=== PATIENT | female | born 1975 | race Two or more races ===

== ENCOUNTER 2021-08-23 15:17 | Outpatient (REF) | payer MEDICAID, SELFPAY ==
--- NOTE | ~2021-08-23 | MM_ITS ---
EXAMINATION: MM SCREENING DIGITAL BREAST TOMOSYNTHESIS, BILATERAL CLINICAL INFORMATION: Screening. Asymptomatic. The lifetime risk of breast cancer based on the Tyrer-Cuzick Model is 13%. COMPARISON: Mammography: 08/21/2020, 09/08/2018, 03/10/2018, 08/26/2017, 08/14/2017 TECHNIQUE: Digital breast tomosynthesis is performed in both the craniocaudal and mediolateral oblique views along with computer-aided detection (CAD). Synthesized 2D images are generated from the tomosynthesis. FINDINGS: The breasts are heterogeneously dense, which may obscure small masses (ACR BI-RADS breast composition Category c). There are no significant masses, abnormal calcifications, or other abnormalities. Parenchymal pattern is similar to prior studies. No developing density. The axilla and skin contours are unremarkable. MM/MM tomosynthesis screening BI IMPRESSION: No mammographic evidence of malignancy. ASSESSMENT: BI-RADS 1: Negative RECOMMENDATION: Routine annual mammography screening. This patient's information was entered into a reminder system with a target due date for their next mammogram.
== END 2021-08-23 15:18 | disposition home or self-care (01) ==
LOC: HO.MAMMO 15:17
PROVIDERS: PCP Nurse Practitioner Primary Care; Visit Provider Nurse Practitioner Primary Care
DX: Z12.31 Encounter for screening mammogram for malignant neoplasm of breast (principal)
CPT/HCPCS: 77063; 77067

== ENCOUNTER 2021-12-31 13:29 | Outpatient (REF) | payer MEDICAID, SELFPAY ==
[2022-01-01 08:51] LABS: BV Int Neg Control Negative (Negative); BV Int Pos Control Positive (Positive)
[2022-01-01 09:06] LABS: CT PCR NOT DETECTED (Not Detect.); NG PCR NOT DETECTED (Not Detect.)
[2022-01-02 19:56] LABS: HPV mRNA E6/E7 rflx Not Detected (Not Detected)
== END 2021-12-31 13:30 | disposition home or self-care (01) ==
LOC: HO.LAB 13:29
PROVIDERS: Visit Provider Advanced Practice Midwife
DX: Z01.419 Encounter for gynecological examination (general) (routine) without abnormal findings (principal); N89.8 Other specified noninflammatory disorders of vagina; N94.89 Other specified conditions associated with female genital organs and menstrual cycle; Z20.2 Contact with and (suspected) exposure to infections with a predominantly sexual mode of transmission
CPT/HCPCS: 87480; 87491; 87510; 87591; 87624; 87660; 88142

== ENCOUNTER 2022-01-24 14:57 | Outpatient (REF) | payer MEDICAID, SELFPAY ==
--- NOTE | ~2022-01-24 | US_ITS ---
EXAMINATION: US PELVIS CLINICAL INFORMATION: Fullness on right side COMPARISON: Previous exam May 2016 TECHNIQUE: Ultrasound of the pelvis is performed using both transabdominal and transvaginal transducers along with Doppler. Transvaginal imaging is performed due to inadequate visualization transabdominally. FINDINGS: The uterus is anteverted and measures 7.2 x 3.6 x 5 cm in dimension. No focal uterine lesion is seen. Endometrial thickness is normal measuring 1.2 cm. There are nabothian cysts in the cervix. The ovaries are normal-appearing. The right ovary measures 2.6 x 1 x 1.3 cm. The left ovary measures 2.1 x 0.7 x 1.2 cm. There are prominent left adnexal vessels. There is a small amount of fluid in the pelvis. US/US pelvic and transvaginal IMPRESSION: Prominent left adnexal vessels otherwise unremarkable exam.
== END 2022-01-24 14:58 | disposition home or self-care (01) ==
LOC: HO.US 14:57
PROVIDERS: Visit Provider Advanced Practice Midwife
DX: N94.89 Other specified conditions associated with female genital organs and menstrual cycle (principal)
CPT/HCPCS: 76830; 76856

== ENCOUNTER → 2022-02-05 12:07 | Outpatient (BNVA) | payer MEDICAID, SELFPAY | PROVIDERS: Visit Provider Advanced Practice Midwife | DX: Z13.89 Encounter for screening for other disorder (principal) ==

== ENCOUNTER 2022-02-25 11:25 | Outpatient (REF) | payer MEDICAID, SELFPAY ==
[2022-02-26 09:00] LABS: CT PCR NOT DETECTED (Not Detect.); NG PCR NOT DETECTED (Not Detect.)
[2022-02-26 09:47] LABS: BV Int Neg Control Negative (Negative); BV Int Pos Control Positive (Positive)
== END 2022-02-25 11:26 | disposition home or self-care (01) ==
LOC: HO.LAB 11:25
PROVIDERS: Visit Provider Advanced Practice Midwife
DX: Z01.419 Encounter for gynecological examination (general) (routine) without abnormal findings (principal); Z20.2 Contact with and (suspected) exposure to infections with a predominantly sexual mode of transmission; N89.8 Other specified noninflammatory disorders of vagina
CPT/HCPCS: 87480; 87491; 87510; 87591; 87660; 99212

== ENCOUNTER 2022-03-14 15:59 | Outpatient (REF) | payer MEDICAID, SELFPAY ==
[2022-03-14 17:02] LABS: Syphilis Screen Nonreactive (Nonreactive)
[2022-03-17 04:43] LABS: HBsAGNum1 0.85 S/CO (0.00-0.99); HIV Num 1 5.51 S/CO (0.00-0.99); Hepatitis B Surface Antigen Negative (Negative); ~HepC Num1 0.12 S/CO (0.00-0.79); ~Hepatitis C Antibody Nonreactive (Nonreactive)
[2022-03-17 05:39] LABS: HIV AB/AG Nonreactive (Nonreactive); HIV Num 2 0.07 S/CO; HIV Num 3 0.08 S/CO
== END 2022-03-14 16:00 | disposition home or self-care (01) ==
LOC: HO.LAB 15:59
PROVIDERS: Visit Provider Advanced Practice Midwife
DX: Z01.84 Encounter for antibody response examination (principal); Z11.4 Encounter for screening for human immunodeficiency virus [HIV]; N89.8 Other specified noninflammatory disorders of vagina; Z20.2 Contact with and (suspected) exposure to infections with a predominantly sexual mode of transmission
CPT/HCPCS: 36415; 86780; 86803; 87340; 87389

== ENCOUNTER 2022-12-09 13:59 | Outpatient (REF) | payer MEDICAID, SELFPAY ==
--- NOTE | ~2022-12-09 | MM_ITS ---
EXAMINATION: MM SCREENING DIGITAL BREAST TOMOSYNTHESIS, BILATERAL CLINICAL INFORMATION: Screening. Asymptomatic. The lifetime risk of breast cancer based on the Tyrer-Cuzick Model is 11%. COMPARISON: Mammography: 08/23/2021, 08/21/2020, 09/08/2018, 03/10/2018; bilateral breast MRI 01/07/2019 TECHNIQUE: Digital breast tomosynthesis is performed in both the craniocaudal and mediolateral oblique views along with computer-aided detection (CAD). Synthesized 2D images are generated from the tomosynthesis. FINDINGS: The breasts are heterogeneously dense, which may obscure small masses (ACR BI-RADS breast composition Category c). Breast tissue composition borders on extremely dense. The parenchymal pattern is similar to prior studies. Scattered asymmetries are stable. There is no developing density or architectural abnormality or significant mass. No abnormal calcifications. The axilla and skin contours are unremarkable. MM/MM tomosynthesis screening BI IMPRESSION: No mammographic evidence of malignancy. ASSESSMENT: BI-RADS 2: Benign RECOMMENDATION: Routine annual mammography screening. This patient's information was entered into a reminder system with a target due date for their next mammogram.
== END 2022-12-09 14:00 | disposition home or self-care (01) ==
LOC: HO.MAMMO 13:59
PROVIDERS: PCP Registered Nurse; Visit Provider Advanced Practice Midwife
DX: Z12.31 Encounter for screening mammogram for malignant neoplasm of breast (principal)
CPT/HCPCS: 77063; 77067

== ENCOUNTER 2023-01-02 10:16 | Outpatient (REF) | payer MEDICAID, SELFPAY ==
--- NOTE | ~2023-01-02 | XR_ITS ---
EXAMINATION: XR LUMBOSACRAL SPINE CLINICAL INFORMATION: Right-sided low back pain COMPARISON: None TECHNIQUE: Three views of the lumbosacral spine. FINDINGS: 5 nonrib-bearing lumbar vertebral bodies are visualized. Normal alignment. Lumbar vertebral body heights are maintained. Mild narrowing at L5/S1 disc space height. Other disc spaces are maintained. Sacroiliac joints are symmetric. Calcifications within the pelvis are likely vascular in nature. XR/XR lumbar spine 2-3V IMPRESSION: Minimal degenerative changes of the lower lumbar spine.
== END 2023-01-02 10:17 | disposition home or self-care (01) ==
LOC: HO.XRAY 10:16
PROVIDERS: PCP Registered Nurse; Visit Provider Emergency Medicine
DX: M54.50 Low back pain, unspecified (principal)
CPT/HCPCS: 72100

== ENCOUNTER 2023-03-04 10:00 | Outpatient (RCR) | payer MEDICAID, SELFPAY | END 2023-04-14 15:44 | disposition home or self-care (01) | LOC: HO.PT 10:00 | PROVIDERS: PCP Registered Nurse; Visit Provider Emergency Medicine | DX: M54.50 Low back pain, unspecified (principal) | CPT/HCPCS: 97110; 97161; 97530 ==

== ENCOUNTER 2023-12-24 12:36 | Outpatient (AMB) | payer OTHER, SELFPAY ==
[2023-12-24 12:36] VITALS: BP 110/62; PULSE 62; TEMP 36.8; O2SAT 98; BMI 24.0
--- NOTE | 2023-12-24 12:36 | MHC.OFFWIV ---
Intake Vital Signs 12/24/23 12:36 Height 5 ft Weight 123 lb 2 oz BMI 24.0 BP 110/62 Blood Pressure Location Lt brachial Position Sitting Pulse 62 Pulse Source Pulse Oximeter Temp 98.2 F Temp Source Oral Pulse Oximetry (%) 98 Intake Visit Reasons: EST/rash on face(lobby) Intake Note: pt is here c/o rash on face, pt states it is itchy, 1x month Patient Tobacco Use Status: Never used Tobacco Allergies benadryl Allergy (Unknown, Uncoded 12/24/23 12:37) dizziness From BENADRYL Adverse Reaction (Intermediate, Uncoded 12/24/23 12:37) VERTIGO Benadryl Adverse Reaction (Unknown, Uncoded 12/24/23 12:37) dizziness Medication List - Last Reconciled 12/24/23 by Leora Christianson, RUBY clobetasol 0.05% 1 appl topical BID 1 week hydroxyzine HCl 25 mg PO BEDTIME Do you need a note to return to daycare/school/sports/work: No HPI HPI Comments History of Present Illness Details 48 y/o female patient presents to walk in clinic with c/o rash on face. Reports rash started back in June 2023. Pt had to travel to [place] in Jul, and returned yesterday. Reports that rash is getting worse, itchy and spreading. Denies rash anywhere else in the body. Noticed the rash after she used new cosmetic product on her face. She has been using OTC Hydrocortisone with no relief. Denies systemic symptoms. [facility] Surgical History History of bilateral tubal ligation Family History Mother Breast cancer Social History Alcohol intake: current Alcohol intake frequency: holidays/special occasions only Patient Tobacco Use Status: Never used Tobacco Gender identity: Female Female Reproductive History Menstrual Age of Menarche: 10 Review of Systems Const All systems reviewed & are unremarkable except as noted in HPI and below Physical Exam Vital Signs: Last Vital Signs Temp 98.2 F 12/24/23 12:36 Pulse 62 12/24/23 12:36 BP 110/62 12/24/23 12:36 Pulse Ox 98 12/24/23 12:36 BMI result Body Mass Index 24.0 Const General: no acute distress Orientation/consciousness: patient oriented x3 Skin General skin exam: dry skin, erythema and lichenification Rashes: rashes noted (Face, dry red patches ) Neuro General: patient oriented x3 Assessment & Plan Assessment & Plan (1) Contact dermatitis: Code(s): L25.9 - Unspecified contact dermatitis, unspecified cause Qualifiers: Contact dermatitis type: allergic Contact dermatitis trigger: cosmetics Qualified Code(s): L23.2 - Allergic contact dermatitis due to cosmetics Plan: - Cetaphil or Cerave wash and moisturizer - No make-ups for At-least 1 month - Topical steroid, use for 7 days on/off - Atarax for itching. Plan - Cetaphil or Cerave wash and moisturizer - No make-ups for At-least 1 month - Topical steroid, use for 7 days on/off - Atarax for itching. Medications: New clobetasol 0.05% APPLY A VERY THIN LAYER TO THE AFFECTED SKIN ON FACE TWICE A DAY FOR 7 DAYS. STOP THE MEDICATION FOR 1 WEEK. MAY REPEAT DOSE FOR ANOTHER 7 DAYS IN NEEDED. 1 appl topical BID 1 week 45 grams 0RF RASH ON FACE L23.2 - Allergic contact dermatitis due to cosmetics hydroxyzine HCl TAKE ONE TABLET AT BEDTIME PRN FOR ITCHING 25 mg PO BEDTIME 20 tabs 0RF ITCHING L23.2 - Allergic contact dermatitis due to cosmetics Coding Level of Care Code Est Pt Level 3 (45130) Diagnoses Allergic contact dermatitis due to cosmetics L23.2 Contact dermatitis type: allergic Contact dermatitis trigger: cosmetics Time Spent (min) 15
== END 2023-12-24 13:36 | disposition home or self-care (01) ==
PROVIDERS: PCP Nurse Practitioner Family; Visit Provider Nurse Practitioner Family
DX: L23.2 Allergic contact dermatitis due to cosmetics (principal)
CPT/HCPCS: 99213

== ENCOUNTER 2023-12-31 14:36 | Outpatient (REF) | payer OTHER, SELFPAY | END 2023-12-31 14:37 | disposition home or self-care (01) | LOC: HO.MAMMO 14:36 | PROVIDERS: Visit Provider Registered Nurse | DX: Z12.31 Encounter for screening mammogram for malignant neoplasm of breast (principal) | CPT/HCPCS: 77063; 77067 ==

== ENCOUNTER → 2023-12-31 15:00 | Outpatient (BNV) | payer OTHER, SELFPAY | PROVIDERS: Visit Provider Radiology Diagnostic Radiology | DX: Z12.31 Encounter for screening mammogram for malignant neoplasm of breast (principal) | CPT/HCPCS: 77063; 77067 ==

== ENCOUNTER 2024-02-01 13:08 | Outpatient (AMB) | payer OTHER, SELFPAY ==
--- NOTE | 2024-02-01 13:18 | MHC.OFFWIV ---
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 Pt states she finished the oitment prescribed to her last month and it helped but has come back. Patient Tobacco Use Status: Never used Tobacco Allergies benadryl Allergy (Unknown, Uncoded 02/01/24 13:21) dizziness From BENADRYL Adverse Reaction (Intermediate, Uncoded 02/01/24 13:21) VERTIGO Benadryl Adverse Reaction (Unknown, Uncoded 02/01/24 13:21) dizziness Do you need a note to return to daycare/school/sports/work: No HPI HPI Comments History of Present Illness Details Patient presents the walk-in today for sick visit Complaining of rash to the face that started June 2023. She was evaluated in the walk-in 1 month ago for this and started on clobetasol cream for 1 week Reports some improvement but ultimately the rash never fully cleared up Denies any do hair or facial products aside from the ones that she was given at her last visit She has been using Cetaphil lotion and cleanser as directed by the provider at her last visit She has been avoiding all make up to the face Denies itching or pain Rash is limited to her face, does not travel down the neck or into the scalp and is no where else on her body Denies any systemic symptoms PFSH Surgical History History of bilateral tubal ligation Family History Mother Breast cancer Social History Alcohol intake: current Alcohol intake frequency: holidays/special occasions only Patient Tobacco Use Status: Never used Tobacco Gender identity: Female Female Reproductive History Menstrual Age of Menarche: 10 Review of Systems Const All systems reviewed & are unremarkable except as noted in HPI and below Physical Exam Vital Signs: Last Vital Signs Temp 98.6 F 02/01/24 13:20 Pulse 73 02/01/24 13:20 BP 116/70 02/01/24 13:20 Pulse Ox 98 02/01/24 13:20 Oxygen Delivery Method Room Air 02/01/24 13:20 BMI result Body Mass Index 23.6 General: awake, alert, oriented. Answers questions appropriately. Fully engaged in examination. Skin: warm, dry, intact. Facial redness. Small red solid bumps noted to cheeks, chin and forehead. No signs of infection. HEENT: Normocephalic. Hearing intact. Cardiac: External chest normal in appearance. Respiratory: No cough, audible wheezing or stridor. Abdomen: without gross distension. MS: No obvious swelling or deformities. Neurological: Oriented to person, place, time and situation. Thought process intact. No gait abnormalities appreciated. Psychiatric: Appropriate mood and affect. Good judgment and insight. Assessment & Plan Assessment & Plan (1) Rosacea: Code(s): L71.9 - Rosacea, unspecified Plan Metronidazole 1% topical apply once daily Follow-up with dermatology, dermatology list provided the patient Continue with Cetaphil wash and cleanser All questions and concerns were answered, patient agrees to the plan Follow-up with primary care doctor or return to walk-in for any new or worsening symptoms Medications: New metronidazole 1% 1 appl topical DAILY 30 days 60 grams 0RF Coding Level of Care Code Est Pt Level 3 (92007) Diagnoses Rosacea L71.9
[2024-02-01 13:20] VITALS: BP 116/70; PULSE 73; TEMP 37; O2SAT 98; BMI 23.6
== END 2024-02-01 15:20 | disposition home or self-care (01) ==
PROVIDERS: Visit Provider Registered Nurse Emergency
DX: L71.9 Rosacea, unspecified (principal)
CPT/HCPCS: 99213

== ENCOUNTER 2024-02-03 13:25 | Outpatient (AMB) | payer OTHER, SELFPAY ==
--- NOTE | 2024-02-03 13:28 | AM.OFFWIN_ITS ---
Intake Vital Signs 02/03/24 13:30 Weight 120 lb BP 112/78 Blood Pressure Location Lt brachial Position Sitting Pulse 75 Pulse Source Pulse Oximeter Pulse Oximetry (%) 98 Oxygen Delivery Method Room Air Intake Visit Reasons: EP RT side lower back pain Intake Note: Patient here for lower right back pain that has been on and off for the past 2 weeks but since a few days ago it has been constant. Patient Tobacco Use Status: Never used Tobacco Allergies benadryl Allergy (Unknown, Uncoded 02/03/24 13:31) dizziness From BENADRYL Adverse Reaction (Intermediate, Uncoded 02/03/24 13:31) VERTIGO Benadryl Adverse Reaction (Unknown, Uncoded 02/03/24 13:31) dizziness Do you need a note to return to daycare/school/sports/work: No HPI HPI Comments History of Present Illness Details 48 y/o female patient who presents to [facility] in clinic with c/o right sided lower back pain x 2 weeks. Reports some urinary symptoms - urine cloudy with foul odor. Denies vaginal symptoms. Denies any injury or trauma. [facility] Surgical History History of bilateral tubal ligation Family History Mother Breast cancer Social History Alcohol intake: current Alcohol intake frequency: holidays/special occasions only Patient Tobacco Use Status: Never used Tobacco Gender identity: Female Female Reproductive History Menstrual Age of Menarche: 10 Review of Systems Const All systems reviewed & are unremarkable except as noted in HPI and below Physical Exam Vital Signs: Last Vital Signs Pulse 75 02/03/24 13:30 BP 112/78 02/03/24 13:30 Pulse Ox 98 02/03/24 13:30 Oxygen Delivery Method Room Air 02/03/24 13:30 Const General: comfortable and no acute distress Nutritional Appearance: well nourished Orientation/consciousness: patient oriented x3 General: Yes CVA tenderness (right CVA tenderness) Back/Spine/Pelvis Back: CVA tenderness (right CVA tenderness), No mass, No erythema, No ecchymosis and back tenderness Cervical Spine: normal cervical lordosis and cervical ROM normal Thoracic/Lumbar Spine: thoracic and lumbar spine normal to inspection and thoraco-lumbar ROM normal Neuro General: patient oriented x3, gait normal and moves all extremities Psych Speech and movement: Normal speech and movement present Results AMB Urinalysis, Automated UA Leukoctes 0 Raman/uL Last Edit by Ankur Rendon [facility] on 02/03/24 13:56 UA Nitrite Negative Last Edit by Ankur Rendon [facility] on 02/03/24 13:56 UA Urobilinogen 0.2 mg/dL Last Edit by Ankur Rendon [facility] on 02/03/24 13:56 UA Protein 0 mg/dL Last Edit by Ankur Rendon [facility] on 02/03/24 13:56 UA pH 6.5 Last Edit by Ankur Rendon [facility] on 02/03/24 13:56 UA Blood 0 Luis Eduardo/uL Last Edit by Ankur Rendon [facility] on 02/03/24 13:56 UA Specific [place] 1.005 Last Edit by Ankur Rendon [facility] on 02/03/24 13:56 UA Ketone Negative Last Edit by Ankur Rendon [facility] on 02/03/24 13:56 UA Bilirubin 0 mg/dL Last Edit by Ankur Rendon [facility] on 02/03/24 13:56 UA Glucose 0 mg/dL Last Edit by NayanaАндрей Rendon [facility] on 02/03/24 13:56 Results Reviewed Results Reviewed: Laboratory Last Values Urine pH (Auto) 6.5 02/03/24 13:53 Specific [place] (Auto) 1.005 02/03/24 13:53 Urine Protein (Auto) 0 mg/dL 02/03/24 13:53 Glucose (UA)(Auto) 0 mg/dL 02/03/24 13:53 Urine Ketones (Auto) Negative 02/03/24 13:53 Urine Blood (Auto) 0 Luis Eduardo/uL 02/03/24 13:53 Urine Nitrite (Auto) Negative 02/03/24 13:53 Urine Bilirubin (Auto) 0 mg/dL 02/03/24 13:53 Urine Urobilinogen (Auto) 0.2 mg/dL 02/03/24 13:53 Leukocyte Esterase (Auto) 0 Raman/uL 02/03/24 13:53 Assessment & Plan Assessment & Plan (1) Lower back pain: Code(s): M54.50 - Low back pain, unspecified Qualifiers: Back pain laterality: right Chronicity: acute Sciatica presence: without sciatica Qualified Code(s): M54.50 - Low back pain, unspecified Plan: - POCT U/A negative - Advised to f/u with PCP for Kidney U/S if indicated. - Naproxen for pain relief - ICE HOT Orders: Orders AMB Urinalysis Automated Today Z13.9 - Encounter for screening, unspecified Coding Level of Care Code Est Pt Level 3 (88112) Diagnoses Acute right-sided low back pain without sciatica M54.50 Back pain laterality: right Chronicity: acute Sciatica presence: without sciatica Time Spent (min) 15
[2024-02-03 13:30] VITALS: BP 112/78; PULSE 75; O2SAT 98
== END 2024-02-03 14:13 | disposition home or self-care (01) ==
PROVIDERS: Visit Provider Nurse Practitioner Family
DX: M54.50 Low back pain, unspecified (principal)
CPT/HCPCS: 81003; 99213

== ENCOUNTER 2024-12-02 09:26 | Outpatient (REF) | payer OTHER, SELFPAY ==
[2024-12-05 09:19] LABS: TS Negative Control Passed; TS Panel A 1; TS Panel B 0; TS Positive Control Passed; TSpotTB Negative (Negative)
== END 2024-12-02 09:27 | disposition home or self-care (01) ==
LOC: HO.HHCL 09:26
PROVIDERS: Visit Provider Internal Medicine
DX: Z01.84 Encounter for antibody response examination (principal); Z11.1 Encounter for screening for respiratory tuberculosis
CPT/HCPCS: 36415; 86481

== ENCOUNTER 2024-12-27 | Outpatient (REF) | payer MEDICAID, SELFPAY ==
--- OUTSIDE RECORDS SUMMARY | 2024-12-28 13:20 | XMS_ITS | Clinical Summary ---
Author Organization [employer] Address [address] [facility] 7t [place] [address] Care Team Providers Care Broadcast Transmitter Operator Name Role Phone Colton Suarez MD Primary [...] Description 12/27/2024 2:45 PM EST Procedure Visit [facility] MEDICINE [address] [place] [phone] Sheri Wolf CNM Cervical cancer screening (Primary Dx); Screening examination for venereal disease; Candidiasis of vulva and vagina; Urinary symptom or sign; Family history of breast cancer in mother 12/27/2024 Patient Outreach [facility] MED & PEDS [address] [place] [address] Colton Suarez MD Pre-visit Planning ([facility] unable to reach [facility] ) 12/27/2024 Travel 12/06/2024 Telephone [facility] MED & PEDS [address] [place] [address] Nadine Garrett MD No Show 12/02/2024 Telephone [facility] PEDIATRICS [address] [place] [address] Colton Suarez MD lab request 10/28/2024 9:45 AM EST Telemedicine [facility] MED & PEDS [address] [place] [address] Colton Suarez MD Encounter for medical examination to establish care (Primary Dx); Screening for colon cancer; Encounter for screening mammogram for malignant neoplasm of breast; Screening for cervical cancer 10/28/2024 Travel 10/19/2024 Telephone [facility] MEDICINE [address] [place] [address] Colton Suarez MD new patient visit from [...] Description 01/03/2025 9:30 AM EST Office Visit [facility] MED & PEDS [address] [place] [address] AbramsColton Alvarez MD [address] [place] [address] Health Maintenance Due Date Last Done Comments [...] PM EST Vulvovaginal candidiasis us Sheri Wolf [facility] POINT OF CARE TEST ENTER/ EDIT ORDERABLES Final Result * T-SPOT??.TB (12/02/2024 9:28 AM EST) T Spot TB Negative Negative [facility] Comment:A negative test resu lt does [...] as aquantitative test. TS PANEL A 1 [facility] TS PANEL B 0 [facility] Negative Control Passed [facility] Positive Control Passed [facility] Comment:For additional infor shaquille, please refer tohttp://education.First Solar.Readmill/faq/DBF400(This link is being provided for informational/educational purposes only.)THIS TEST WAS PERFORMED AT:[employer] [id number] [place] [address]RDUEHFLVALERIE ROBB MD,PHD 12/02/2024 9:28 AM EST 12/02/2024 11:34 AM EST us Colton Saravia MD LAB BLOOD ORDERABL ES Final Result [facility] [address] [place] [address] [phone] * BI Mammogram Screening Tomosynthesis Bilateral (12/31/2023 3:00 PM EST) Anatomical Region Laterality Modality Breast Bilateral Mammography 12/31/2023 3:00 PM EST Narrative 01/25/2024 2:25 PM EST ? [facility] [place] ? [address] ?[place] [address] ? Mammography Report ? Signed ? Patient: Tory Monreal ?MR#: [id number] ?? [id number] ? : 1975 ?Acct:[id number] ? Age/Sex: 48 / F ?ADM Date: 12/31/23 ? Loc: HO.MAMMO ? Attending Dr: Lexi Deon SAUSAGE INSPECTOR ? Ordering Physician: Deon,Lexi SAUSAGE INSPECTOR ?Results: 1Nega ?? tive ? Date of Service: 12/31/23 ?Follow Up: 1 Year From Orig ?? inal Mammogram ? Procedure(s): MM tomosynthesis screening BI ?? Accession Number(s): [id number] ? cc: Deon,Lexi SAUSAGE INSPECTOR ? EXAMINATION: ?? MM SCREENING DIGITAL BREAST [...] 1421 ? DD/ 1500 ? TD/TT: ? Electric Range Assembler: ? Procedure Note Sara Sapp - 01/25/2024 [facility] [address] [place], [place] [address] Mammography Report Signed Patient: Tory Monreal EMR#: [id number] : 1975Acct:[id number] Age/Sex: 48 / FADM Date: 12/31/23 Loc: BOBBY[facility] Attending Dr: Lexi Chavarria SAUSAGE INSPECTOR Ordering Physician: Lexi Chavarria FNPResults: 1Nega tive Date of Service: 12/31/23Follow Up: 1 Year From Orig inal Mammogram Procedure(s): MM tomosynthesis screening BI Accession Number(s): [id number] cc: Lexi Chavarria SAUSAGE INSPECTOR EXAMINATION: MM SCREENING DIGITAL BREAST TOMOSYNTHESIS, BILATERAL [...] in OV> 01/25/24 1421 DD/ 1500 TD/TT: Electric Range Assembler: [facility] SAUSAGE INSPECTOR IMG BI PROCEDURES Final Resul t from Last 3 Months or Most Recently Relevant to Health Maintenance Insurance * Guarantor: Tory Saravia Account Type Relation to Patient Date of Phone Billing Address Personal/Family Self [address] [place] [address] Care Teams Broadcast Transmitter Operator Relationship Specialty Start Date End Date Colton Suarez MD [address] [place] [phone] PCP - General Internal Medicine 11/01/24
--- OUTSIDE RECORDS SUMMARY | 2024-12-28 13:20 | XMS_ITS | Encounter Summary ---
Author Organization [employer] Address [address] [facility] 7t [place] [address] Care Team Providers Care Mule Developer Name Role Phone Colton Suarez MD Primary Care Prov ider Reason for Visit * Reason Comments Pre-visit Planning SDOH unable to reach LVM Encounter Details Date Type Department Care Team (Late st Contact Info) Description 12/27/2024 Patient Outreach [facility] MED & PEDS [address] [place], [place] [phone] Colton Suarez MD [address] [place] [address] Pre-visit Planning ([facility] unable to reach LVM ) Social History Tobacco Use Types Packs/Day Years [...] AM EDT documented as of this encounter Progress Notes * Catrina Eaton - 12/27/2024 3:31 PM EST FRANCISCO Richards placed outbound call to patient to complete pre-visit planning. No answer at this time. Patient name and were not confirmed. CC left voicemail requesting return call. Direct contactinformation provided. documented in this encounter Plan of Treatment Upcoming Encounters Date Type Department Care Team (Late st Contact Info) Description 01/03/2025 9:30 AM EST Office Visit [facility] MED & PEDS [address] [place] [address] Colton Suarez MD [address] [place] [address] documented as of this encounter Visit Diagnoses Not on filedocumented in this encounter Additional Health Concerns Assessment Noted Time PHQ-9 Depression Total Score: 5 10/28/20 9:50 AM EST documented as of this encounter Care Teams Mule Developer Relationship Specialty Start Date End Date Colton Suarez MD [address] [place] [address] PCP - General Internal Medicine 11/01/24 documented as of this encounter
--- OUTSIDE RECORDS SUMMARY | 2024-12-28 13:20 | XMS_ITS | Encounter Summary ---
Author Organization [employer] Address [address] [facility] [address] 7t [place] [address] Care Team Providers Care Methods Specialist Engineer Name Role Phone Colton Suarez MD Primary Care Prov ider Reason for Visit * Reason Onset Date Comments No Show 12/06/2024 Encounter Details Date Type Department Care Team ([facility] Contact Info) Description 12/06/2024 Telephone C [facility] MED & PEDS [address] [place], [place] [phone] Nadine Garrett MD [address] [place], [place] [phone] No Show Social History Tobacco Use Types [...] Description 01/03/2025 9:30 AM EST Office Visit [facility]C MED & PEDS [address] [place] [address] Colton Suarez MD [address] [place] [address] documented as of this encounter Visit Diagnoses Not on filedocumented in this encounter Additional Health Concerns Assessment Noted Time PHQ-9 Depression Total Score: 5 10/28/20 9:50 AM EST documented as of this encounter Care Teams Methods Specialist Engineer Relationship Specialty Start Date End Date Colton Suarez MD [address] [place] [address] PCP - General Internal Medicine 11/01/24 documented as of this encounter
--- OUTSIDE RECORDS SUMMARY | 2024-12-28 13:20 | XMS_ITS | Encounter Summary ---
Author Organization [employer] Address [address] [facility] 7t [place] [address] Care Team Providers Care Postal Supervisor Name Role Phone Lexi Chavarria [facility] Primary Care Provider [phone] Colton Suarez MD Primary Care Prov ider Encounter Details Date Type Department Care Team ([facility] Contact Info) Description 06/23/[address] [facility] MEDICINE [address] [place], [place] [phone] Lexi Chavarria [facility] [address] [place], [place] [phone] Social History Tobacco Use Types Packs/Day Years [...] Description 01/03/2025 9:30 AM EST Office Visit [facility] CHC MED & PEDS [address] [place], [place] [phone] Colton uSarez MD [address] [place] [address] documented as of this encounter Visit Diagnoses Not on filedocumented in this encounter Additional Health Concerns Assessment Noted Time PHQ-9 Depression Total Score: 6 06/23/20 23 11:39 AM EDT documented as of this encounter Care Teams Postal Supervisor Relationship Specialty Start Date End Date Lexi Chavarria FNP [address] [place] [phone] PCP - General Family Medicine 08/19/21 11/17/23 oClton Suarez MD [address] [place] [address] PCP - General Internal Medicine 11/01/24 documented as of this encounter
--- OUTSIDE RECORDS SUMMARY | 2024-12-28 13:20 | XMS_ITS | Encounter Summary ---
Author Organization [employer] Address [address] [facility] [address] 7t [place] [address] Care Team Providers Care Filling Room Operator Name Role Phone Colton Suarez MD [...] Description 01/03/2025 9:30 AM EST Office Visit [facility] MED & PEDS [address] [place] [address] Colton Suarez MD [address] [place] [address] documented as of this encounter Visit Diagnoses Not on filedocumented in this encounter Additional Health Concerns Assessment Noted Time PHQ-9 Depression Total Score: 5 10/28/20 24 9:50 AM EST documented as of this encounter Care Teams Filling Room Operator Relationship Specialty Start Date End Date Colton Suarez MD [address] [place] [address] PCP - General Internal Medicine 11/01/24 documented as of this encounter
--- OUTSIDE RECORDS SUMMARY | 2024-12-28 13:20 | XMS_ITS | Encounter Summary ---
Author Organization [employer] Address [address] [facility] [address] 7t [place] [address] Care Team Providers Care Senior Mortgage Loan Processor Name Role Phone Colton Suarez MD Primary Care Prov ider Reason for Visit * Reason Comments Gynecologic Exam Encounter Details Date Type Department Care Team (Latest Contact Info) Description 12/27/2024 2:45 PM EST Procedure Visit [facility] MEDICINE [address] [place], [place] [phone] Sheri Wolf CNM [address] [place], [place] [phone] Cervical cancer screening (Primary Dx); Screening examination [...] in this encounter Progress Notes * Sheri Wolf CNM - 12/27/2024 2:45 PM EST Subjective [...] 9:30 AM EST Office Visit [facility] MED & PEDS [address] [place] [address] Colton Suarez MD 505 [place] [address] Scheduled Orders Name Type Priority Associated Diagnoses [...] documented as of this encounter Care Teams Senior Mortgage Loan Processor Relationship Specialty Start Date End Date Colton Suarez MD [address] [place] [phone] PCP - General Internal Medicine 11/01/24 documented as of this encounter
--- OUTSIDE RECORDS SUMMARY | 2024-12-28 13:20 | XMS_ITS | Encounter Summary ---
Author Organization [employer] Address [address] [facility] [address] 7t [place] [address] Care Team Providers Care Architect Internship Name Role Phone Colton Suarez MD Primary Care Prov ider Reason for Visit * Reason Onset Date Comments lab request 12/02/2024 Encounter Details Date Type Department Care Team (Late st Contact Info) Description 12/02/[address] [facility] PEDIATRICS [address] [place] [address] Colton Suarez MD [address] [place], [place] [phone] lab request Social History Tobacco Use Types [...] EST Pt came to after going to [facility] asking for TB order. Will route to [facility] nurses. documented in this encounter Plan of Treatment Upcoming Encounters Date Type Department Care Team (Late st Contact Info) Description 01/03/2025 9:30 AM EST Office Visit [facility] MED & PEDS [address] [place] [address] Colton Suarez MD [address] [place] [address] documented as of this encounter Procedures Procedure Name Priority Date/Time Associated Diagnosis Comments T-SPOT(R).TB Routine 12/02/2024 9:28 AM EST Encounter for immunization documented in this encounter Results * T-SPOT??.TB (12/02/2024 9:28 AM EST) T Spot TB Negative Negative [facility] Comment:A negative test resu lt [...] as aquantitative test. TS PANEL A 1 [facility] TS PANEL B 0 [facility] Negative Control Passed [facility] Positive Control Passed [facility] Comment:For additional infor mation, please refer tohttp://education.Borderfree/faq/SBZ902(This link is being provided for informational/educational purposes only.)THIS TEST WAS PERFORMED AT:[employer] [id number] [place] [address]JFDJLMIVALERIE ROBB MD,PHD 12/02/2024 9:28 AM EST 12/02/2024 11:34 AM EST us Colton Saravia MD LAB BLOOD ORDERABL ES Final Result [facility] [address] [place] [phone] documented in this encounter Visit Diagnoses Diagnosis Encounter for medical examination to establish care Encounter for immunization documented in this encounter Additional Health Concerns Assessment Noted Time PHQ-9 Depression Total Score: 5 10/28/20 9:50 AM EST documented as of this encounter Care Teams Architect Internship Relationship Specialty Start Date End Date Colton Suarez MD [address] [place] [phone] PCP - General Internal Medicine 11/01/24 documented as of this encounter
== END 2024-12-27 00:01 | disposition home or self-care (01) ==
LOC: HO.HHCLNP
PROVIDERS: Visit Provider Advanced Practice Midwife
DX: R39.9 Unspecified symptoms and signs involving the genitourinary system (principal)
CPT/HCPCS: 87086

== ENCOUNTER 2024-12-27 18:14 | Outpatient (REF) | payer MEDICAID, SELFPAY ==
--- OUTSIDE RECORDS SUMMARY | 2024-12-27 18:16 | XMS_ITS | Encounter Summary ---
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 Name Role Phone Lexi Chavarria [facility] Primary Care Provider [phone] Colton Suarez MD Primary Care Prov ider Encounter Details Date Type Department Care Team ([facility] Contact Info) Description 06/23/2023 Abstract [facility] MEDICINE [address] [place], [place] [phone] Lexi Chavarria [facility] [address] [place], [place] [phone] Social History Tobacco Use Types Packs/Day Years Used Date Smoking Tobacco: Never Smokeless Tobacco: Never Alcohol Use Standard Drinks/Week Comments Never 0 (1 standard drink = 0.6 oz pur e alcohol) Depression Answer Date Recorded Patient Health Questionnaire-9 Score 6 06/23/2023 Depression Answer Date Recorded Patient Health Questionnaire-2 Score 2 06/23/2023 Comments Unknown Sex and Gender Information Value Date Recorded Sex Assigned at Female 09/22/2022 10:20 AM EDT Legal Sex Female 10:20 AM EDT Gender Identity Female 09/22/2022 10:20 AM EDT Sexual Orientation Don't know 09/22/2022 10 :20 AM EDT COVID-19 Exposure Response Date Recorded In the last 10 days, have yo u been in contact with someone who was confirmed or suspected to have Coronavirus/COVID-19? No / Unsure 06/01/2023 3:23 PM EDT documented as of this encounter Plan of Treatment Upcoming Encounters Date Type Department Care Team (Late Contact Info) Description 01/03/2025 9:30 AM EST Office Visit [facility] [address] [place], [place] [phone] Colton Suarez MD [address] [place] [address] documented as of this encounter Visit Diagnoses Not on filedocumented in this encounter Additional Health Concerns Assessment Noted Time PHQ-9 Depression Total Score: 6 06/23/20 23 11:39 AM EDT documented as of this encounter Care Teams Lockstitch Waistband Setter Relationship Specialty Start Date End Date Lexi Chavarria FNP [address] [place] [id number] PCP - General Family Medicine 08/19/21 11/17/23 Colton Suarez MD [address] [place] [address] PCP - General Internal Medicine 11/01/24 documented as of this encounter
--- OUTSIDE RECORDS SUMMARY | 2024-12-27 18:16 | XMS_ITS | Encounter Summary ---
Author Organization [email or web address] Address [address] [place] [address] Care Team Providers Care Pararescue Manager Name Role Phone Colton Suarez MD Primary Care Prov ider Reason for Visit * Reason Onset Date Comments No Show 12/06/2024 Encounter Details Date Type Department Care Team ([facility] Contact Info) Description 12/06/2024 Telephone C [facility] [address], [place] [phone] Nadine Garrett MD [address] [place], [place] [phone] No Show Social History Tobacco Use Types Packs/Day Years Used Date Smoking Tobacco: Never Smokeless Tobacco: Never Alcohol Use Standard Drinks/Week Comments Never 0 (1 standard drink = 0.6 oz pur e alcohol) Depression Answer Date Recorded Patient Health Questionnaire-9 Score 5 10/28/2024 Patient Health Questionnaire-9 Score 5 10/28/2024 Last PHQ-9: Questionnaire Data Not on file 1 12/29/2023 Housing Stability Answer Date Recorded What is your housing situation today? I have fermin umanzor 09/28/[address] you li ve. Do you have problems with any of the following? None of the above 09/28/2023 Food Insecurity Answer Date Recorded Within the past 12 months, y ou worried that your food would run out before you got money to buy more: Never True 09/28/2023 Within the past 12 months,th e food you bought just didn't last and you didn't have enough money to get more: Never True 04/2023 Transportation Answer Date Recorded In the past 12 months, has l ack of transportation kept you from medical appts, meetings, work or from getting things needed for daily living? No 09/28/2023 Utilities Answer Date Recorded In the past 12 months, has t he electric, gas, oil or water company threatened to shut off services in your home? No 09/28/2023 Depression Answer Date Recorded Patient Health Questionnaire-2 Score 2 10/28/2024 Comments Unknown Sex and Gender Information Value Date Recorded Sex Assigned at Female 09/22/2022 10:20 AM EDT Legal Sex Female 10:20 AM EDT Gender Identity Female 09/22/2022 10:20 AM EDT Sexual Orientation Don't know 09/22/2022 10 :20 AM EDT documented as of this encounter Miscellaneous Notes * Telephone Encounter - [facility] - 12/06/2024 11:56 AM EST 12/06/24 no show for pap documented in this encounter Plan of Treatment Upcoming Encounters Date Type Department Care Team (Late st Contact Info) Description 01/03/2025 9:30 AM EST Office Visit [facility] [address] [place] [address] Colton Suarez MD [address] [place] [address] documented as of this encounter Visit Diagnoses Not on filedocumented in this encounter Additional Health Concerns Assessment Noted Time PHQ-9 Depression Total Score: 5 10/28/20 9:50 AM EST documented as of this encounter Care Teams Pararescue Manager Relationship Specialty Start Date End Date Colton Suarez MD [address] [place] [address] PCP - General Internal Medicine 11/01/24 documented as of this encounter
--- OUTSIDE RECORDS SUMMARY | 2024-12-27 18:16 | XMS_ITS | Clinical Summary ---
Author Organization [employer] Address [address] [facility] 7t [place] [address] Care Team Providers Care Chemical Process Analyst Name Role Phone Colton Suarez MD Primary Care Prov ider Allergies Active Allergy Reactions Criticality Noted Date Comments Diphenhydramine 03/16/2015 Medications acetaminophen (Tylenol) 500 MG tabletIndicatio ns:Right-sided low back pain without sciatica, unspecified chronicity Take 2 tablets (1,000 mg) by mouth every 6 (six) hours if needed for moderate pain or fever for up to 25 doses. 50 tablet 01/01/20 23 Active terconazole (Terazol 7) 0.4 % vaginal cream Insert 1 applicator into the vagina at bedtime for 7 days. 45 g 12/27/19 25 025 Active terconazole (Terazol 7) 0.4 % vaginal cream Insert 1 applicator into the vagina at bedtime for 7 days. 45 g 12/27/19 25 025 Discontinued Active Problems Problem Noted Date Diagnosed Date Family history of breast cancer in mother 2024 Overview (12/27/2024): Diagnosed in her 50s, unilateral. No recurrence as of 12/2024. Mammogram BIRADS 1 cat c 12/2023. Lifetime risk of breast cancer by Nilesh Perez 10.3% using 12/2023 mammogram. Encounter for medical examination to establish c are 10/28/2024 Assessment & Plan (10/28/2024 10:40 AM EST): Last pcp follow up was in August Er visit: 3 months ago due to back pain Hospitalization:- Pmhx- Pshx:- All- Meds: tizanidine 4mg, diclofenac 50mg Menarche 11yr LMP jul 2024 A1 Screening for colon cancer 10/28/2024 Assessment & Plan (10/28/2024 10:41 AM EST): Will refer for screening colon cancer Encounter for screening mamm ogram for malignant neoplasm of breast 10/28/2024 Assessment & Plan (10/28/2024 10:42 AM EST): Will refer for screening mammogram Screening for cervical cancer 10/28/2024 Assessment & Plan (10/28/2024 10:45 AM EST): Will refer with a female provider for pap smear Encounters Date Type Department Care Team Description 12/27/2024 2:45 PM EST Procedure Visit [facility] [address] [place] [phone] Sheri Wolf CNM Cervical cancer screening (Primary Dx); Screening examination for venereal disease; Candidiasis of vulva and vagina; Urinary symptom or sign; Family history of breast cancer in mother 12/27/2024 Patient Outreach [facility] [address] [place] [address] Colton Suarez MD Pre-visit Planning ([facility] unable to reach [facility] ) 12/27/2024 Travel 12/06/2024 Telephone [facility] [address] [place] [address] Nadine Garrett MD No Show 12/02/2024 Telephone [facility] [address] [place] [phone] Colton Suarez MD lab request 10/28/2024 9:45 AM EST Telemedicine [facility] [address] [place] [address] Colton Suarez MD Encounter for medical examination to establish care (Primary Dx); Screening for colon cancer; Encounter for screening mammogram for malignant neoplasm of breast; Screening for cervical cancer 10/28/2024 Travel 10/19/2024 Telephone [facility] [address] [place] [phone] Colton Suarez MD new patient visit from Last 3 Months Immunizations Name Administration Dates Next Due Hep B, Adolescent or Pediatric 07/15/2011,2009,09/10/2009 Influenza, IIV3, injectable 07/15/2011 Influenza, Split (incl. nini fied surface antigen) 08/26/2012 Tdap 08/26/2012 Family History Medical History Relation Name Comments No Known Problems Father Breast cancer Mother unilateral, di agnosed in her 50s. Still living, cancer free as of 12/2024 Diabetes Mother Hypertension Mother Diabetes Sister Thyroid cancer Sister Relation Name Status Comments Father Mother Sister Social History Tobacco Use Types Packs/Day Years Used Date Smoking Tobacco: Never Smokeless Tobacco: Never Tobacco Cessation:Counseling Given: Not Answered Alcohol Use Standard Drinks/Week Comments Never 0 [...] Patient Health Questionnaire-2 Score 2 10/28/2024 Comments No Sex and Gender Information Value Date Recorded Sex Assigned at Female 09/22/2022 10:20 AM EDT Legal Sex Female 10:20 AM EDT Gender Identity Female 09/22/2022 10:20 AM EDT Sexual Orientation Don't know 09/22/2022 10 :20 AM EDT Last Filed Vital Signs Vital Sign Reading Time Taken Comments Blood Pressure 112/62 12/27/2024 3:03 PM EST Pulse 67 12/27/2024 3:03 PM EST Temperature 36.3 ??C (97.3 ??F) 12/27/2024 3:03 PM ES T Respiratory Rate 16 12/27/2024 3:03 PM EST Oxygen Saturation 98% 12/27/2024 3:03 PM EST Inhaled Oxygen Concentration - - Weight 53.2 kg (117 lb 3.2 oz) 12/27/2024 3:03 P M EST Height 154.9 cm (5' 1 ) 12/27/2024 3:03 PM EST Body Mass Index 22.14 12/27/2024 3:03 PM EST Plan of Treatment Upcoming Encounters Date Type Department Care Team (Late st Contact Info) Description 01/03/2025 9:30 AM EST Office Visit [facility] [address] [place] [address] AbramsColton Alvarez MD [address] [place] [address] Health Maintenance Due Date Last Done Comments CT Colonography 1973 Colonoscopy 1973 Colorectal Cancer Screening 1973 FIT DNA/Cologuard 1973 FIT 1973 FOBT 1973 HIV Screening 1973 Sigmoidoscopy 1973 Alcohol/Substance Use Screening 1985 Family Planning (PISQ) 1988 Hepatitis C Screening 1991 Hepatitis B Vaccines (1 of 3 - 19+ 3-dose series) 1992 07/15/2011, 09/27/2010, 09/10/2009 Pap Smear 1994 Cervical Cancer Screening 2003 HPV/Cotest 2003 DTaP/Tdap/Td Vaccines (2 - Td or Tdap) 08/26/2022 08/26/2012 Pneumococcal Vaccine: 50+ Years (1 of 1 - PCV) 2023 Zoster Vaccines (1 of 2) 2023 SDOH Screening 06/23/2024 06/23/2023 COVID-19 Vaccine ( season) 2024 Influenza Vaccine (#1) 2024 08/26/2012, 2010 Depression Screening 10/28/2025 10/28/2024, 10/28/20 24 Tobacco Screening 12/27/2025 12/27/2024 Mammogram 12/31/2025 12/31/2023, 10/0 11/2020, 08/21/2020, Additional history exists RSV Patients and Patients Aged 60 years or older (1 - 1-dose 75+ series) 2048 HIB Vaccines Aged Out No longer eligi ble based on patient's age to complete this topic HPV Vaccines Aged Out No longer eligi ble based on patient's age to complete this topic Hepatitis A Vaccines Aged Out No long er eligible based on patient's age to complete this topic IPV Vaccines Aged Out No longer eligi ble based on patient's age to complete this topic Meningococcal Vaccine Aged Out No tita zaynab eligible based on patient's age to complete this topic RSV under 20 months Aged Out No longe r eligible based on patient's age to complete this topic Rotavirus Vaccines Aged Out No longer eligible based on patient's age to complete this topic Procedures Procedure Name Priority Date/Time Associated Diagnosis Comments POCT WET MOUNT/GURJIT Routine 12/27/2024 3: 38 PM EST Candidiasis of vulva and vagina T-SPOT(R).TB Routine 12/02/2024 9:28 AM EST Encounter for immunization BI MAMMOGRAM SCREENING TOMOSYNTHESIS BILATERAL Routine 12/31/2023 3:00 PM EST from Last 3 Months or Most Recently Relevant to Health Maintenance Results * POCT fern test, vaginal fluid manually resulted (12/27/2024 3:38 PM EST) GURJIT Prep Positive Comment:pH 4.5, neg whiff, n eg clue, neg trich, pos yeast, neg wbc Vaginal Fluid Vaginal structure / Unknown 12/27/2024 3:38 PM EST Impressions Sheri Wolf, CRISTEL - 12/27/2024 3:38 PM EST Vulvovaginal candidiasis us Sheri Wolf [facility] POINT OF CARE TEST ENTER/ EDIT ORDERABLES Final Result * T-SPOT??.TB (12/02/2024 9:28 AM EST) T Spot TB Negative Negative [facility] Comment:A negative test resu lt does not exclude the possibilityof exposure to or infection with Mycobacteriumtuberculosis (M. tuberculosis). Patients with recentexposure to TB infected individuals exhibiting anegative T-SPOT.TB result should be considered forretesting within 6 weeks or if other relevant clinicalsymptoms indicate. Results from T-SPOT.TB testing mustbe used in conjunction with each individual'sepidemiological history, current medical status,and results of other diagnostic evaluations.The T-SPOT.TB test is qualitative and results arereported as positive, borderline, or negative, giventhat the test controls perform as expected. In linewith the Centers for Disease Control and Prevention's2010 recommendation to report quantitative measurementsalongside the qualitative result, the laboratoryprovides spot counts for informational purposes only.The T-SPOT.TB test should not be interpreted as aquantitative test. TS PANEL A 1 [facility] TS PANEL B 0 [facility] Negative Control Passed [facility] Positive Control Passed [facility] Comment:For additional infor shaquille, please refer tohttp://education.[employer]soft [employer].Bubbleball/faq/OZO848(This link is being provided for informational/educational purposes only.)THIS TEST WAS PERFORMED AT:[employer] [id number] [place] [address]MGCIAUPVALERIE ROBB MD,PHD 12/02/2024 9:28 AM EST 12/02/2024 11:34 AM EST us Colton Saravia MD LAB BLOOD ORDERABL ES Final Result [facility] [address] [place] [address] [phone] * BI Mammogram Screening Tomosynthesis Bilateral (12/31/2023 3:00 PM EST) Anatomical Region Laterality Modality Breast Bilateral Mammography 12/31/2023 3:00 PM EST Narrative 01/25/2024 2:25 PM EST ? [facility] [place] ? [address] ?[place] [id number] ? Mammography Report ? Signed ? Patient: Tory Monreal ?MR#: M ?? [id number] ? : 1975 ?Acct:[id number] ? Age/Sex: 48 / F ?ADM Date: 12/31/23 ? Loc: HO.MAMMO ? Attending Dr: Lexi Deon SUPERVISOR ? Ordering Physician: Deon,Lexi SUPERVISOR ?Results: 1Nega ?? tive ? Date of Service: 12/31/23 ?Follow Up: 1 Year From Orig ?? inal Mammogram ? Procedure(s): MM tomosynthesis screening BI ?? Accession Number(s): [id number] ? cc: Deon,Lexi SUPERVISOR ? EXAMINATION: ?? MM SCREENING DIGITAL BREAST TOMOSYNTHESIS, BILATERAL ? CLINICAL INFORMATION: ? Screening. Asymptomatic. ? COMPARISON: ?? Mammography: This study is compared with prior exams dating back to ?? 2018. ? TECHNIQUE: ?? Digital breast tomosynthesis is performed in both the craniocaudal and ?? mediolateral oblique views along with computer-aided detection (CAD). ?? Synthesized 2D images are generated from the tomosynthesis. ? FINDINGS: ?? The breasts are heterogeneously dense, which may obscure small masses ?? (ACR BI-RADS breast composition Category c). ? There are no significant masses, abnormal calcifications, or other ?? abnormalities. ? MM/MM tomosynthesis screening BI ?? IMPRESSION: ?? No mammographic evidence of malignancy. ? ASSESSMENT: ? BI-RADS BI-RADS 1 - Negative ? RECOMMENDATION: ?? Routine annual mammography screening. ? 1 year F/U ? This examination should not preclude the clinical evaluation of a ?? suspicious palpable abnormality. ? This patient's information was entered into a reminder system with a ?? target due date for their next mammogram. ? Dictated By: ?Tess Tesfaye MD ? Signed By: ?<Electronically signed by Tess Tesfaye MD in OV> ? 01/25/24 1421 ? DD/ 1500 ? TD/TT: ? Supervisor [place]: ? Procedure Note Sara Sapp - 01/25/2024 [facility] [address] [place], [place] [address] Mammography Report Signed Patient: Tory Monreal EMR#: [id number] : 1975Acct:[id number] Age/Sex: 48 / FADM Date: 12/31/23 Loc: [facility] Attending Dr: Lexi Chavarria SUPERVISOR Ordering Physician: Lexi Chavarria FNPResults: 1Nega tive Date of Service: 12/31/23Follow Up: 1 Year From Orig inal Mammogram Procedure(s): MM tomosynthesis screening BI Accession Number(s): [id number] cc: Lexi Chavarria SUPERVISOR EXAMINATION: MM SCREENING DIGITAL BREAST TOMOSYNTHESIS, BILATERAL CLINICAL INFORMATION: Screening. Asymptomatic. COMPARISON: Mammography: This study is compared with prior exams dating back to 2018. TECHNIQUE: Digital breast tomosynthesis is performed in both the craniocaudal and mediolateral oblique views along with computer-aided detection (CAD). Synthesized 2D images are generated from the tomosynthesis. FINDINGS: The breasts are heterogeneously dense, which may obscure small masses (ACR BI-RADS breast composition Category c). There are no significant masses, abnormal calcifications, or other abnormalities. MM/MM tomosynthesis screening BI IMPRESSION: No mammographic evidence of malignancy. ASSESSMENT: BI-RADS BI-RADS 1 - Negative RECOMMENDATION: Routine annual mammography screening. 1 year F/U This examination should not preclude the clinical evaluation of a suspicious palpable abnormality. This patient's information was entered into a reminder system with a target due date for their next mammogram. Dictated By: Tess Tesfaye MD Signed By: <Electronically signed by Tess Tesfaye MD in OV> 01/25/24 1421 DD/ 1500 TD/TT: Supervisor [place]: [facility] SUPERVISOR IMG BI PROCEDURES Final Resul t from Last 3 Months or Most Recently Relevant to Health Maintenance Insurance * Guarantor: Tory Saravia Account Type Relation to Patient Date of Phone Billing Address Personal/Family Self [address] [place] [address] Care Teams Chemical Process Analyst Relationship Specialty Start Date End Date Colton Suarez MD [address] [place] [phone] PCP - General Internal Medicine 11/01/24
--- OUTSIDE RECORDS SUMMARY | 2024-12-27 18:16 | XMS_ITS | Encounter Summary ---
Author Organization [employer] Address [address] 7[address] [place] [address] Care Team Providers Care Interpretive Naturalist Name Role Phone Colton Suarez MD Primary Care Prov ider Reason for Visit * Reason Onset Date Comments lab request 12/02/2024 Encounter Details Date Type Department Care Team (Late st Contact Info) Description 12/02/2024 Telephone [facility] [address] [place] [address] Colton Suarez MD [address] [place], [place] [phone] lab request Social History Tobacco Use Types Packs/Day Years [...] as of this encounter Miscellaneous Notes * Addendum Note - Nay Zee RN - 12/02/2024 8:54 AM ESTAddended by: NAY ZEE on: 12/02/2024 08:54 AM Modules accepted: Orders * Telephone Encounter - Nay Zee RN - 12/02/2024 8:50 AM EST Order placed will notify pt. * Telephone Encounter - Nay Zee RN - 12/02/2024 8:40 AM EST Pt came to after going to [facility] asking for TB order. Will route to [facility] nurses. documented in this encounter Plan of Treatment Upcoming Encounters Date Type Department Care Team (Late st Contact Info) Description 01/03/2025 9:30 AM EST Office Visit [facility] [address] [place] [address] Colton Suarez MD [address] [place] [address] documented as of this encounter Procedures Procedure Name Priority Date/Time Associated Diagnosis Comments T-SPOT(R).TB Routine 12/02/2024 9:28 AM EST Encounter for immunization documented in this encounter Results * T-SPOT??.TB (12/02/2024 9:28 AM EST) T Spot TB Negative Negative [facility] Comment:A negative test resu lt does [...] as aquantitative test. TS PANEL A 1 [facility] TS PANEL B 0 [facility] Negative Control Passed [facility] Positive Control Passed [facility] Comment:For additional infor mation, please refer tohttp://education.Foremost/faq/KKL708(This link is being provided for informational/educational purposes only.)THIS TEST WAS PERFORMED AT:[employer] [id number] [place] [address]BIJGDHJVALERIE ROBB MD,PHD 12/02/2024 9:28 AM EST 12/02/2024 11:34 AM EST us Colton Saravia MD LAB BLOOD ORDERABL ES Final Result [facility] [address] [place] [phone] documented in this encounter Visit Diagnoses Diagnosis Encounter for medical examination to establish care Encounter for immunization documented in this encounter Additional Health Concerns Assessment Noted Time PHQ-9 Depression Total Score: 5 10/28/20 9:50 AM EST documented as of this encounter Care Teams Interpretive Naturalist Relationship Specialty Start Date End Date Colton Suarez MD [address] [place] [phone] PCP - General Internal Medicine 11/01/24 documented as of this encounter
--- OUTSIDE RECORDS SUMMARY | 2024-12-27 18:16 | XMS_ITS | Encounter Summary ---
Author Organization [employer] Address [address] [place] [address] Care Team Providers Care Machine Printer Hose Name Role Phone Colton Suarez MD Primary Care Prov ider Reason for Visit * Reason Comments Gynecologic Exam Encounter Details Date Type Department Care Team (Latest Contact Info) Description 12/27/2024 2:45 PM EST Procedure Visit [facility] [address] [place], [place] [phone] Sheri Wolf CNM [address] [place], [place] [phone] Cervical cancer screening (Primary Dx); Screening examination for venereal disease; Candidiasis of vulva and vagina; Urinary symptom or sign; Family history of breast cancer in mother Social History Tobacco Use Types Packs/Day Years [...] AM EDT documented as of this encounter Last Filed Vital Signs Vital Sign Reading [...] Mass Index 22.14 12/27/2024 3:03 PM EST documented in this encounter Progress Notes * Sheri oWlf CNM - 12/27/2024 2:45 PM EST Subjective Patient ID: Tory Saravia is a 49 y.o. female who presents for pap Last pap a few years ago, no prior abnormal. Skipped menses x 3 months, now monthly again. LMP 24x 6 days. 4 pads/day max. Notes some cramping, and itching with urination as well as vaginal irritation and discharge recently. She thinks she was treated for UTI and yeast last year. Last UTI on file here in 2022. Not sexually active in past few months, no current partner. Would like pap based STItesting today. Mammogram BIRADS 1, cat c 12/2023. Routine mammogram ordered 10/2024. Mother with unilateral breast cancer in her 50s, still living, no recurrence. No other family history of breast cancer. Review of Systems Genitourinary: Positive for pelvic pain and vaginal discharge. Negative for dyspareunia, dysuria, frequency, genital sores, hematuria, menstrual problem, urgency, vaginal bleeding and vaginal pain. No abnormal pap, no abnormal bleeding, no breast pain, no breast mass, no nipple discharge Objective BP 112/62 (BP Location: Left arm, Patient Position: Sitting, BP Cuff Size: Adult) Pulse 67 Temp97.3 ??F (36.3 ??C) (Temporal) Resp 16 Ht 5' 1 (1.549 m) Wt 117 lb 3.2 oz (53.2 kg) LMP 12/16/2024 (Approximate) SpO2 98% BMI 22.14 kg/m?? Physical Exam Constitutional: Appearance: Normal appearance. Chest: Breasts: Right: Normal. No swelling, bleeding, inverted nipple, mass, nipple discharge, skin change or tenderness. Left: Normal. No swelling, bleeding, inverted nipple, mass, nipple discharge, skin change or tenderness. Abdominal: General: A surgical scar is present. Tenderness: There is no right CVA tenderness or left CVA tenderness. Genitourinary: General: Normal vulva. Labia: Right: No rash, tenderness, lesion or injury. Left: No rash, tenderness, lesion or injury. Vagina: No signs of injury and foreign body. Vaginal discharge present. No erythema, tenderness, bleeding or lesions. Cervix: No cervical motion tenderness, discharge, friability, lesion, erythema, cervical bleeding or eversion. Uterus: Normal. Not enlarged and not tender. Adnexa: Right adnexa normal and left adnexa normal. Right: No mass, tenderness or fullness. Left: No mass, tenderness or fullness. Comments: Ovaries non palpable bilaterally. Good tone with Kegels, no prolapse with Valsalva. Lymphadenopathy: Upper Body: Right upper body: No supraclavicular or axillary adenopathy. Left upper body: No supraclavicular or axillary adenopathy. Neurological: Mental Status: She is alert. Psychiatric: Mood and Affect: Mood normal. Behavior: Behavior normal. Assessment/Plan Diagnoses and all orders for this visit: Cervical cancer screening - Pap Smear Cotest today. Will contact with results and plan. Cotest 5 years if normal. Yearly mammography. Urged to talk with mother to see if she had any genetics testing as part of treatment for breast cancer. If so, please let me know results. Report new family members with cancer diagnoses or changes in breast exam. Reviewed normal vs abnormal menstrual changes. Report prolonged, frequent or heavy bleeding, or bleeding after a year of no bleeding. Benign pelvic exam today. If urine culture/G/C/trichomonas neg and intermittent pain persists, willorder pelvic ultrasound. Screening examination for venereal disease - STI testing add on (NG, CT, Trich) Pap based STI testing sent. Will offer serum STI labs when we contact with results. Candidiasis of vulva and vagina - POCT fern test, vaginal fluid manually resulted For terconazole as prescribed. Avoid vaginal irritants. Report worsening or persistent symptoms. Urinary symptom or sign - Culture, Urine, Routine Reports frequent UTIs. Will send urine culture today and treat as indicated. Other orders - terconazole (Terazol 7) 0.4 % vaginal cream; Insert 1 applicator into the vagina at bedtime for 7days. documented in this encounter Plan of Treatment Upcoming Encounters Date Type Department Care Team (Late st Contact Info) Description 01/03/2025 9:30 AM EST Office Visit [facility] [address] [place] [address] Colton Suarez MD [address] [place] [address] Scheduled Orders Name Type Priority Associated Diagnoses Orde r Schedule Pap Smear Pathology and Cytology Routine Cervical cancer screening Ordered: 12/27/2024 STI testing add on (NG, CT, Trich) Pathology and Cytology Routine Screening examination for venereal disease Ordered: 12/27/2024 Culture, Urine, Routine Microbiology Routine Urinary symptom or sign Ordered: 12/27/2024 documented as of this encounter Procedures Procedure Name Priority Date/Time Associated Diagnosis Comments POCT WET MOUNT/GURJIT Routine 12/27/2024 3: 38 PM EST Candidiasis of vulva and vagina documented in this encounter Results * POCT fern test, vaginal fluid manually resulted (12/27/2024 3:38 PM EST) GURJIT Prep Positive Comment:pH 4.5, neg whiff, n eg clue, neg trich, pos yeast, neg wbc Vaginal Fluid Vaginal structure / Unknown 12/27/2024 3:38 PM EST Impressions Sheri Wolf CNM - 12/27/2024 3:38 PM EST Vulvovaginal candidiasis Sheri Wolf CNM POINT OF CARE TEST ENTER/ EDIT ORDERABLES Final Result documented in this encounter Visit Diagnoses Diagnosis Cervical cancer screening- Primary Screening for malignant neoplasm of the cervix Screening examination for venereal disease Candidiasis of vulva and vagina Urinary symptom or sign Family history of breast cancer in mother Family history of malignant neoplasm of breast documented in this encounter Additional Health Concerns Assessment Noted Time PHQ-9 Depression Total Score: 5 10/28/20 9:50 AM EST documented as of this encounter Care Teams Machine Printer Hose Relationship Specialty Start Date End Date Colton Suarez MD [address] [place] [phone] PCP - General Internal Medicine 11/01/24 documented as of this encounter
--- OUTSIDE RECORDS SUMMARY | 2024-12-27 18:16 | XMS_ITS | Encounter Summary ---
Author Organization [employer] Address [address] [facility] [address] [address] 7t [place] [address] Care Team Providers Care Valve Mechanic Name Role Phone Colton Suarez MD Primary Care Prov ider Encounter Details Date Type Department Care Team (Latest Contact Info) Description 12/27/2024 Travel Social History Tobacco Use Types Packs/Day Years [...] your housing situation today? I have fermin erna 09/28/[address] you li [...] AM EDT documented as of this encounter Plan of Treatment Upcoming Encounters Date Type Department Care Team (Late st Contact Info) Description 01/03/2025 9:30 AM EST Office Visit [facility] MED & PEDS [address] [place] [address] Colton Suarez MD [address] [place] [address] documented as of this encounter Visit Diagnoses Not on filedocumented in this encounter Additional Health Concerns Assessment Noted Time PHQ-9 Depression Total Score: 5 10/28/20 24 9:50 AM EST documented as of this encounter Care Teams Valve Mechanic Relationship Specialty Start Date End Date Colton Suarez MD [address] [place] [address] PCP - General Internal Medicine 11/01/24 documented as of this encounter
[2025-01-01 20:03] LABS: C. trachomatis RNA TMA Not Detected (Not Detected); N. gonorrhoeae RNA TMA Not Detected (Not Detected); Trichomonas (NAAT) Not Detected (Not Detected)
[2025-01-05 15:09] LABS: HPV Genotype 16 Negative (Negative); HPV Genotype 18 Negative (Negative); HPV High Risk Negative (Negative)
== END 2024-12-27 18:15 | disposition home or self-care (01) ==
LOC: HO.HHCLNP 18:14
PROVIDERS: Visit Provider Advanced Practice Midwife
DX: Z11.3 Encounter for screening for infections with a predominantly sexual mode of transmission (principal); Z12.4 Encounter for screening for malignant neoplasm of cervix
CPT/HCPCS: 87086; 87491; 87591; 87626; 87661; 88175

== ENCOUNTER 2025-01-12 14:25 | Outpatient (REF) | payer MEDICAID, SELFPAY ==
--- OUTSIDE RECORDS SUMMARY | 2025-01-12 15:42 | XMS_ITS | Encounter Summary ---
Author Organization [employer] Address [address] [facility] [address] 7t [place] [address] Care Team Providers Care Microphone Operator Name Role Phone Colton Suarez MD Primary Care Prov ider Reason for Visit * Reason Comments Gynecologic Exam Encounter Details Date Type Department Care Team (Latest Contact Info) Description 12/27/2024 2:45 PM EST Procedure Visit [facility] MEDICINE [address] [place], [place] [phone] Sheri Hayes CNM [address] [place], [place] [phone] Cervical cancer screening (Primary Dx); Screening examination [...] kg (117 lb 3.2 oz) 12/27/2024 3:03 PM EST Height 154.9 cm (5' 1 ) 12/27/2024 3:03 PM EST Body Mass Index 22.14 12/27/2024 3:03 PM EST documented in this encounter Progress Notes * Sheri Hayes CNM - 12/27/2024 2:45 PM EST Subjective [...] bedtime for 7days. documented in this encounter Miscellaneous Notes * Result Encounter Note - Sheri Hayes CNM - 12/27/2024 2:45 PM EST Please let Tory know her pap was normal, HPV neg, Gonorrhea/Chlamydia/trichomonas neg. Urine culture also negative. If she continues to have vaginal/urinary symptoms after finishing terconazole, she can come to [facility] or be scheduled for evaluation. We did pap based STI testing, but not blood work. Would she like that as well? If so, I will order. Thanks! documented in this encounter Plan of Treatment Not on file documented as of this encounter Procedures Procedure Name Priority Date/Time Associated Diagnosis Comments POCT WET MOUNT/GURJIT Routine 12/27/2024 3: 38 PM EST Candidiasis of vulva and vagina CULTURE, URINE, ROUTINE Routine 12/27/2024 3:23 PM EST Urinary symptom or sign CHLAMYDIA/N. GONORRHOEAE AND T. VAGINALIS RNA, QUAL,TMA Routine 12/27/2024 3:20 PM EST Screening examination for venereal disease PAP SMEAR Routine 12/27/2024 3:20 PM EST Cervical cancer screening documented in this encounter Results * POCT fern test, vaginal fluid manually resulted (12/27/2024 3:38 PM EST) GURJIT Prep Positive Comment:pH 4.5, neg whiff, n eg clue, neg trich, pos yeast, neg wbc Vaginal Fluid Vaginal structure / Unknown 12/27/2024 3:38 PM EST Impressions Sheri Hayes CNM - 12/27/2024 3:38 PM EST Vulvovaginal candidiasis Sheri Hayes CNM POINT OF CARE TEST ENTER/ EDIT ORDERABLES Final Result * Culture, Urine, Routine (12/27/2024 3:23 PM EST) Urine Urine specimen obtained by clean catch procedure / Unknown 12/27/2024 3:23 PM EST 12/28/2024 11:21 AM EST Comment:[facility] Narrative [facility] - 12/29/2024 11:32 AM EST Urine Culture No growth. Specimen Source: Urine clean catch Sheri Hayes CNM LAB MICROBIOLOGY - GENERA L ORDERABLES Final Result [facility] [address] [place] [phone] * STI testing add on (NG, CT, Trich) (12/27/2024 3:20 PM EST) Trichomonas (NAAT) Not Detected Not Detected [facility] Comment:Methodology: Transcr iption Mediated Amplification(TMA)The analytical performance characteristics of thisassay have been determined by [facility], [place], [place]. The modificationshave not been cleared or approved by the FDA. Thisassay has been validated pursuant to the CLIAregulations and is used for clinical purposes.For additional information, please refer tohttp://education.Ad Tech Media Sales/faq/Trichomonastma (This link is being providedfor information/educational purposes only).THIS TEST WAS PERFORMED AT:[employer] [id number] [place] [address]ENHFQBQVALERIE ROBB MD,PHD CTNG Ref Lab Not Detected Not Detected [facility] NG Ref Lab Not Detected Not Detected [facility] Comment:Methodology: Transcr iption Mediated Amplification(TMA) to detect RNA.The analytical performance characteristics of thisassay, when used to test SurePath specimens havebeen determined by [employer]. The modificationshave not been cleared or approved by the FDA.This assay has been validated pursuant to the CLIAregulations and is used for clinical purposes.For additional information, please refer tohttps://education.[employer]/faq/QQL627(This link is being provided for information/educational purposes only).THIS TEST WAS PERFORMED AT:[employer] [id number] [place] [address]RYMRZJQVALERIE ROBB MD,PHD ThinPrep?? vial Cervix uteri structure / Unknown 12/27/2024 3:20 PM EST 12/28/2024 9:15 AM EST Narrative [facility] - 01/01/2025 8:03 PM EST Collection Date: [id number] by: GRISEL Pacheco: Cervix us Sheri PAL LAB CYTOLOGY ORDERABLES F inal Result [facility] [address] [place] [phone] * Pap Smear (12/27/2024 3:20 PM EST) Swab Cervix uteri structure / Unknown 12/27/2024 3:20 PM EST 12/28/2024 9:15 AM EST [facility] - 01/05/2025 10:00 AM EST ----- ------- Name: Tory Monreal ?Age/Sex: 49/F ? : 1975 Unit#: [id number] ?? Attend Dr: SHERI HAYES CNM ?Re12/27/24 ?Status: DEP REF ? Location: HO.HHCLNP ? Disch: ? ----- ------- SPEC : [id number] ? RECD: 12/28/24-914 ? STATUS: ??SOUT ? REQ NUM: [id number] ? SABINE: 12/27/24-1519 ? SUBM DR: SHERI HAYES CNM ? ENTERED: ??12/28/24-954 ?SP TYPE: Pap Smr ?OTHR PICKETT: ? ORDERED: ??Pap Smear ? Interpretation ?? Satisfactory for evaluation. ?? Negative for intraepithelial lesion or malignancy. ?? No endocervical cells seen. ?? Moderate inflammation. ? HPV High Risk: ??Negative ? HPV Genotyping 16: ??Negative ?? HPV Genotyping 18: ??Negative ?Clinical Information LMP: Unknown date Previous PAP test: Unknown date/findings ? Material Received ?? ThinPrep-Cervical ----- ------- Signed (signature on file) VICENTE Lopez (ASCP) 01/05/25 1000 ? ----- ------- ? END OF REPORT ? us Sheri Hayes CNM LAB CYTOLOGY ORDERABLES F inal Result [facility] [address] [place] [address] [phone] documented in this encounter Visit Diagnoses [...] documented as of this encounter Care Teams Microphone Operator Relationship Specialty Start Date End Date Colton Suarez MD [address] [place] [phone] PCP - General Internal Medicine 11/01/24 documented as of this encounter
--- OUTSIDE RECORDS SUMMARY | 2025-01-12 15:42 | XMS_ITS | Encounter Summary ---
Author Organization [facility] [facility] Address 75 [facility] 7t [place] [address] Care Team Providers Care Continuous Improvement Black Belt Name Role Phone Colton Suarez MD Primary [...] as of this encounter Plan of Treatment Not on file documented as of this encounter Visit Diagnoses Not on filedocumented in this encounter Additional Health Concerns Assessment Noted Time PHQ-9 Depression Total Score: 5 10/28/20 9:50 AM EST documented as of this encounter Care Teams Continuous Improvement Black Belt Relationship Specialty Start Date End Date Colton Suarez MD [address] [place] [phone] PCP - General Internal Medicine 11/01/24 documented as of this encounter
--- OUTSIDE RECORDS SUMMARY | 2025-01-12 15:42 | XMS_ITS | Encounter Summary ---
Author Organization [employer] Address [address] [place] [address] Care Team Providers Care Shook Machine Operator Name Role Phone Colton Suarez MD Primary Care Prov ider Reason for Visit * Reason Onset Date Comments Results 01/05/2025 Encounter Details Date Type Department Care Team ([facility] Contact Info) Description 01/05/2025 Telephone [facility] [address], [place] [phone] Dawn Drake, GABRIELLE Results Social History Tobacco Use Types Packs/Day Years [...] housing situation today? I have fermin umanzor 01/03/[address] you li ve. Do you have problems with any of the following? None of the above 01/03/2025 Food Insecurity Answer Date Recorded Within the past 12 months, y ou worried that your food would run out before you got money to buy more: Never True 01/03/2025 Within the past 12 months,th e food you bought just didn't last and you didn't have enough money to get more: Never True 09/2025 Transportation Answer Date Recorded In the past 12 months, has l ack of transportation kept you from medical appts, meetings, work or from getting things needed for daily living? No 01/03/2025 Utilities Answer Date Recorded In the past 12 months, has t he electric, gas, oil or water company threatened to shut off services in your home? No 01/03/2025 Depression Answer Date Recorded Patient Health Questionnaire-2 Score 2 10/28/2024 Internet Access Answer Date Recorded Internet Access Q1 Yes 01/03/2025 Internet Access Q2 Not on file 01/03/2025 Comments No Sex and Gender Information Value Date Recorded Sex Assigned at Female 09/22/2022 10:20 AM EDT Legal Sex Female 10:20 AM EDT Gender Identity Female 09/22/2022 10:20 AM EDT Sexual Orientation Don't know 09/22/2022 10 :20 AM EDT documented as of this encounter Miscellaneous Notes * Telephone Encounter - Sheri Wolf CNM - 01/05/2025 11:27 AM EST Thanks! PCP ordered HIV and Hep C. I added on syphilis. Received HBV vaccine series in [id number], so should be all set there. * Telephone Encounter - Dawn Drake RN - 01/05/2025 10:55 AM EST Telephone call to pt using [employer] assistant maintenance manager #[phone]. Advised pt per provider: - urine culture negative, negative for below STIs, normal pap, negative HPV Pt stated she would like lab work to check for STI as well. Pt reports not having finished the terconazole medication yet, advised her if she continues to have urinary or vaginal symptoms, to go to [facility] or call health center to schedule appt with PCP. Pt verbalized understanding, no further questions. Pt saw PCP 01/03/25, 5 days after seeing CRISTEL Wolf. Will message provider to order labs. * Telephone Encounter - Dawn Drake RN - 01/05/2025 10:45 AM EST ----- Message from Sheri Wolf sent at 01/05/2025 10:06 AM EST ----- Please let Tory know her pap was normal, HPV neg, Gonorrhea/Chlamydia/trichomonas neg. Urine culture also negative. If she continues to have vaginal/urinary symptoms after finishing terconazole, she can come to [facility] or be scheduled for evaluation. We did pap based STI testing, but not blood work. Would she like that as well? If so, I will order.Thanks! documented in this encounter Plan of Treatment Not on file documented as of this encounter Visit Diagnoses Not on filedocumented in this encounter Additional Health Concerns Assessment Noted Time PHQ-9 Depression Total Score: 5 10/28/20 24 9:50 AM EST documented as of this encounter Care Teams Shook Machine Operator Relationship Specialty Start Date End Date Colton Suarez MD [address] [place] [id number] PCP - General Internal Medicine 11/01/24 documented as of this encounter
--- OUTSIDE RECORDS SUMMARY | 2025-01-12 15:42 | XMS_ITS | Encounter Summary ---
Author Organization [employer] [facility] Address [address] [facility] [address] [place] [address] Care Team Providers Care Rouge Miller Name Role Phone Lexi Chavarria [facility] Primary Care Provider [phone] Colton Suarez MD Primary Care Prov ider Encounter Details Date Type Department Care Team (Late st Contact Info) Description 06/23/2023 Abstract [facility] [address] [place], [place] [phone] [facility] [address] [place], [place] [phone] Social History Tobacco Use Types Packs/Day Years [...] documented as of this encounter Care Teams Rouge Miller Relationship Specialty Start Date End Date Lexi Chavarria FNP [address] [place] [address] PCP - General Family Medicine 08/19/21 11/17/23 Colton Suarez MD [address] [place] [id number] PCP - General Internal Medicine 11/01/24 documented as of this encounter
--- OUTSIDE RECORDS SUMMARY | 2025-01-12 15:42 | XMS_ITS | Encounter Summary ---
Author Organization [employer] [facility] Address [address] [facility] 7[address] [place] [address] Care Team Providers Care Fire Extinguisher Technician Name Role Phone Colton Suarez MD Primary Care Prov ider Reason for Referral * Consultation (Routine) - Authorized Specialty Diagnoses / Procedures Referred By Gil hayes Referred To Contact Dermatology / Family Medicine Diagnoses Rosacea Colton Suarez MD [address] [place] [address] Phone: tel: fax: Jose Dixon MD [address] [place] [id number] Phone: tel: fax: Referral ID Status Reason Start Date Expiration Date Visits Requested Visits Authorized [id number] Authorized Consult and Treat 01/03/2025 01/03/2026 1 1 Encounter Details Date Type Department Care Team (Late st Contact Info) Description 01/03/2025 9:30 AM EST Office Visit [facility] [address] [place] [address] Colton Suarez MD [address] [place], [place] [phone] Annual physical exam (Primary Dx); Rosacea; Dysuria; Encounter for immunization Social History Tobacco Use Types Packs/Day Years [...] Sign Reading Time Taken Comments Blood Pressure 102/64 01/03/2025 9:53 AM EST Pulse 76 01/03/2025 9:53 AM EST Temperature 37 ??C (98.6 ??F) 01/03/2025 9:53 AM EST Respiratory Rate 20 01/03/2025 9:53 AM EST Oxygen Saturation - - Inhaled Oxygen Concentration - - Weight 50.8 kg (112 lb) 01/03/2025 9:53 AM EST Height 154.9 cm (5' 1 ) 01/03/2025 9:53 AM EST Body Mass Index 21.16 01/03/2025 9:53 AM EST documented in this encounter Progress Notes * Colton Saravia MD - 01/03/2025 9:30 AM EST Subjective Patient ID: Tory Saravia is a 49 y.o. female who presents for No chief complaint on file.. HPI Patient was seen on office for a physical examination Review of Systems Constitutional: Negative for chills, fatigue and fever. Respiratory: Negative for cough and shortness of breath. Cardiovascular: Negative for chest pain and palpitations. Gastrointestinal: Negative for abdominal distention, abdominal pain and anal bleeding. Genitourinary: Positive for dysuria. Objective Physical Exam Constitutional: Appearance: Normal appearance. HENT: Right Ear: Tympanic membrane, ear canal and external ear normal. There is no impacted cerumen. Left Ear: Tympanic membrane, ear canal and external ear normal. There is no impacted cerumen. Cardiovascular: Rate and Rhythm: Normal rate and regular rhythm. Heart sounds: No murmur heard. Pulmonary: Effort: Pulmonary effort is normal. No respiratory distress. Breath sounds: No stridor. No wheezing or rhonchi. Abdominal: General: Abdomen is flat. There is no distension. Palpations: There is no mass. Tenderness: There is no abdominal tenderness. Hernia: No hernia is present. Musculoskeletal: General: Normal range of motion. Cervical back: Normal range of motion. No rigidity or tenderness. Lymphadenopathy: Cervical: No cervical adenopathy. Neurological: General: No focal deficit present. Mental Status: She is alert and oriented to person, place, and time. Psychiatric: Mood and Affect: Mood normal. Behavior: Behavior normal. Assessment/Plan Problem List Items Addressed This Visit Rosazuleykaa Will refer to dermatology for evaluation Relevant Orders Referral to [facility] Derm Skin Other Visit Diagnoses Annual physical exam - Primary Unremarkable examination, no heart murmurs, no chest pain/shortness of breath reported, will order blood work for further evaluation Relevant Orders CBC auto differential Comprehensive Metabolic Panel Hemoglobin A1c Lipid Panel, Standard TSH W/Reflex to FT4 HIV-1/2 Antigen and Antibodies, Fourth Generation, with Reflexes Hepatitis C Antibody with Reflex to HCV, RNA, Quantitative, Real-Time PCR Dysuria Encouraged to drink plenty of water and avoid urine retention, u/a was negative for infection Physical exam documented in this encounter Miscellaneous Notes * Assessment & Plan Note - Colton Saravia MD - 01/03/2025 10:33 AM ESTAssociated Problem(s): Rosacea Will refer to dermatology for evaluation documented in this encounter Plan of Treatment Scheduled Orders Name Type Priority Associated Diagnoses Orde r Schedule CBC auto differential Lab Routine Annual physical exam Expected: 01/03/2025 (Approximate), Expires: 01/03/2026 Comprehensive Metabolic Panel Lab Routine Annual physical exam Expected: 01/03/2025 (Approximate), Expires: 01/03/2026 Hemoglobin A1c Lab Routine Annual physical exam Expected: 01/03/2025 (Approximate), Expires: 01/03/2026 Lipid Panel, Standard Lab Routine Annual physical exam Expected: 01/03/2025 (Approximate), Expires: 01/03/2026 TSH W/Reflex to FT4 Lab Routine Annual physical exam Expected: 01/03/2025 (Approximate), Expires: 01/03/2026 HIV-1/2 Antigen and Antibodies, Fourth Generation, with Reflexes Lab Routine Annual physical exam Expected: 01/03/2025 (Approximate), Expires: 01/03/2026 Hepatitis C Antibody with Reflex to HCV, RNA, Quantitative, Real-Time PCR Lab Routine Annual physical exam Expected: 01/03/2025, Expires: 01/03/2026 Scheduled Referrals Name Type Priority Associated Diagnoses Orde r Schedule Referral to [facility] Derm Skin Outpatient Referral Routine Rosacea Expected: 01/03/2025 (Approximate), Expires: 01/03/2026 documented as of this encounter Procedures Procedure Name Priority Date/Time Associated Diagnosis Comments POCT URINALYSIS DIPSTICK Routine 01/03/2025 10:52 AM EST Dysuria documented in this encounter Results * (ABNORMAL) POCT Urinalysis (01/03/2025 10:52 AM EST) Color, UA Yellow Clarity, UA Clear Glucose, UA Negative Bilirubin, UA Negative Ketones, UA Negative Spec Grav, UA 1.020 Blood, UA Positive(A) Negative, None Detected Comment:trace pH, UA 6.0 Protein, UA Negative Urobilinogen, UA 0.2 Leukocytes, UA Negative Negative, Rare, Trace Nitrite, UA Negative Negative, None Detected Appearance, UA clear QC Media Lot # [id number] Lot# Expiration Date [id number] Urine 01/03/2025 10:5 2 AM EST Colton Saravia MD POINT OF CARE TEST ENTER/EDIT ORDERABLES Final Result documented in this encounter Visit Diagnoses Diagnosis Annual physical exam- Primary Routine general medical examination at a health care facility Rosacea Dysuria Encounter for immunization documented in this encounter Additional Health Concerns Assessment Noted Time PHQ-9 Depression Total Score: 5 10/28/20 9:50 AM EST documented as of this encounter Care Teams Fire Extinguisher Technician Relationship Specialty Start Date End Date Colton Suarez MD [address] [place] [id number] PCP - General Internal Medicine 11/01/24 documented as of this encounter
--- OUTSIDE RECORDS SUMMARY | 2025-01-12 15:42 | XMS_ITS | Encounter Summary ---
Author Organization [employer] Address [address] [place] [address] Care Team Providers Care Technical Specialist Name Role Phone Colton Suarez MD Primary Care Prov ider Encounter Details Date Type Department Care Team (Latest Contact Info) Description 01/03/2025 Travel Social History Tobacco Use Types Packs/Day [...] documented as of this encounter Care Teams Technical Specialist Relationship Specialty Start Date End Date Colton Suarez MD [address] [place] [id number] PCP - General Internal Medicine 11/01/24 documented as of this encounter
--- OUTSIDE RECORDS SUMMARY | 2025-01-12 15:42 | XMS_ITS | Encounter Summary ---
Author Organization [employer] Address [address] [facility] [address]t [place] [address] Care Team Providers Care Flask Pusher Name Role Phone Colton Suarez MD Primary Care Prov ider Reason for Visit * Reason Comments Pre-visit Planning SDOH unable to reach LVM Encounter Details Date Type Department Care Team ([facility] Contact Info) Description 12/27/2024 Patient Outreach [facility] [address] [place] [address] Colton Suarez MD [address] [place] [address] Pre-visit Planning (SDOH unable to reach LVM [...] documented as of this encounter Care Teams Flask Pusher Relationship Specialty Start Date End Date Colton Suarez MD [address] [place] [address] PCP - General Internal Medicine 11/01/24 documented as of this encounter
--- OUTSIDE RECORDS SUMMARY | 2025-01-12 15:42 | XMS_ITS | Clinical Summary ---
Author Organization [employer] Address [address] [place] [address] Care Team Providers Care Nurse Clinical Name Role Phone Colton Suarez MD Primary [...] days. 45 g 12/27/19 25 025 Discontinued terconazole (Terazol 7) 0.4 % vaginal cream Insert 1 applicator into the vagina at bedtime for 7 days. 45 g 12/27/19 25 025 Active Problems Problem Noted Date Diagnosed Date Rosacea 01/03/2025 Assessment & Plan (01/03/2025 10:33 AM EST): Will refer to dermatology for evaluation Family history of breast cancer in mother [...] Encounters Date Type Department Care Team Description 01/05/2025 Orders Only [facility] [address] [place] [phone] Marcos Hayes CNM Screening examination for venereal disease (Primary Dx) 01/05/2025 Telephone [facility] [address] [place] [phone] Dawn Drake RN Results 01/03/2025 9:30 AM EST Office Visit [facility] [address] [place] [address] Colton Suarez MD Annual physical exam (Primary Dx); Rosacea; Dysuria; Encounter for immunization 01/03/2025 Travel 12/27/2024 2:45 PM EST Procedure Visit [address] [address] Marcos Hayes CNM Cervical cancer screening (Primary Dx); Screening examination for venereal disease; Candidiasis of vulva and vagina; Urinary symptom or sign; Family history of breast cancer in mother 12/27/2024 Patient Outreach [facility] [address] [place] [address] Colton Suarez MD Pre-visit Planning ([facility] unable to reach [facility] ) 12/27/2024 Travel 12/06/2024 Telephone [facility] [address] [place] [address] Nadine Garrett MD No Show 12/02/2024 Telephone [facility] [address] [place] [address] Colton Suarez MD lab request 10/28/2024 9:45 AM EST Telemedicine [facility] [address] [place] [address] Colton Suarez MD Encounter for medical examination to establish care (Primary Dx); Screening for colon cancer; Encounter for screening mammogram for malignant neoplasm of breast; Screening for cervical cancer 10/28/2024 Travel 10/19/2024 Telephone [facility] [address] [place] [address] Colton Suarez MD new patient visit from Last 3 Months Immunizations Name Administration Dates Next Due Hep B, Adolescent or Pediatric 07/15/2011,2009,09/10/2009 Influenza, IIV3, injectable 07/15/2011 Influenza, Split (incl. nini fied surface antigen) 08/26/2012 Tdap 01/03/2025,08/26/2012 Family History Medical History Relation Name Comments [...] 20 01/03/2025 9:53 AM EST Oxygen Saturation 98% 12/27/2024 3:03 PM EST Inhaled Oxygen Concentration - - Weight 50.8 kg (112 lb) 01/03/2025 9:53 AM EST Height 154.9 cm (5' 1 ) 01/03/2025 9:53 AM EST Body Mass Index 21.16 01/03/2025 9:53 AM EST Plan of Treatment Health Maintenance Due Date Last Done Comments CT Colonography 1975 Colonoscopy 1975 Colorectal Cancer Screening 1975 FIT DNA/Cologuard 1975 FIT 1975 FOBT 1975 HIV Screening 1975 Sigmoidoscopy 1975 Family Planning (PISQ) 1988 Hepatitis C Screening 1991 Hepatitis B Vaccines (1 of 3 - 19+ 3-dose series) 1992 07/15/2011, 09/27/2010, 09/10/2009 Pneumococcal Vaccine: 50+ Years (1 of 1 - PCV) 2023 Zoster Vaccines (1 of 2) 2023 COVID-19 Vaccine (1 - season) 2024 Influenza Vaccine (#1) 2024 08/26/2012, 2010 Depression Screening 10/28/2025 10/28/2024, 10/28/20 24 Tobacco Screening 12/27/2025 12/27/2024 Mammogram 12/31/2025 12/31/2023, 10/11/2020, 08/21/2020, Additional history exists Alcohol/Substance Use Screening 01/03/2026 01/03/2025 SDOH Screening 01/03/2026 01/03/2025 Cervical Cancer Screening 12/27/2029 HPV/Cotest 12/27/2029 12/27/2024 Pap Smear 12/27/2029 12/27/2024 DTaP/Tdap/Td Vaccines (3 - Td or Tdap) 01/03/2035 01/03/2025, 08/26/2012 RSV Patients and Patients Aged 60 years [...] DIPSTICK Routine 01/03/2025 10:52 AM EST Dysuria POCT WET MOUNT/GURJIT Routine 12/27/2024 3: 38 PM EST Candidiasis of vulva and vagina CULTURE, URINE, ROUTINE Routine 12/27/2024 3:23 PM EST Urinary symptom or sign CHLAMYDIA/N. GONORRHOEAE AND T. VAGINALIS RNA, QUAL,TMA Routine 12/27/2024 3:20 PM EST Screening examination for venereal disease PAP SMEAR Routine 12/27/2024 3:20 PM EST Cervical cancer screening HPV DNA, LOW/HIGH RISK Routine 12/27/2024 3:20 PM EST T-SPOT(R).TB Routine 12/02/2024 9:28 AM EST Encounter for immunization BI MAMMOGRAM SCREENING TOMOSYNTHESIS BILATERAL Routine 12/31/2023 3:00 PM EST from Last 3 Months or Most Recently Relevant to Health Maintenance Results * (ABNORMAL) POCT Urinalysis (01/03/2025 10:52 [...] Media Lot # [id number] Lot# Expiration Date [id number] Urine 01/03/2025 10:5 2 AM EST Colton Saravia MD POINT OF CARE TEST ENTER/EDIT ORDERABLES Final Result * POCT fern test, vaginal fluid manually resulted (12/27/2024 3:38 PM EST) GURJIT Prep Positive Comment:pH 4.5, neg whiff, n eg clue, neg trich, pos yeast, neg wbc Vaginal Fluid Vaginal structure / Unknown 12/27/2024 3:38 PM EST Impressions Marcos Hayes CNM - 12/27/2024 3:38 PM EST Vulvovaginal candidiasis Marcos Hayes CNM POINT OF CARE TEST ENTER/ EDIT ORDERABLES Final Result * Culture, Urine, Routine (12/27/2024 3:23 PM EST) Urine Urine specimen obtained by clean catch procedure / Unknown 12/27/2024 3:23 PM EST 12/28/2024 11:21 AM EST Comment:[facility] Narrative [facility] - 12/29/2024 11:32 AM EST Urine Culture No growth. Specimen Source: Urine clean catch Marcos Hayes CNM LAB MICROBIOLOGY - GENERA L ORDERABLES Final Result [facility] [address] [place] [phone] * STI testing add on (NG, CT, Trich) (12/27/2024 3:20 PM EST) [facility] Trichomonas (NAAT) Not Detected Not Detected [facility] Comment:Methodology: Transcr iption Mediated Amplification(TMA)The analytical performance characteristics of thisassay have been determined [place] [place]. The modificationshave not been cleared or approved by the FDA. Thisassay has been validated pursuant to the CLIAregulations and is used for clinical purposes.For additional information, please refer tohttp://education.BloomBoard.[employer]/faq/Trichomonastma (This link is being providedfor information/educational purposes only).THIS TEST WAS PERFORMED AT:[id number] [place] [address]FYSJVLJVALERIE ROBB MD,PHD CTNG Ref Lab Not Detected Not Detected [facility] NG Ref Lab Not Detected Not Detected [facility] Comment:Methodology: Transcr iption Mediated Amplification(TMA) to detect RNA.The analytical performance characteristics of thisassay, when used to test SurePath specimens havebeen determined by [facility]. The modificationshave not been cleared or approved by the FDA.This assay has been validated pursuant to the CLIAregulations and is used for clinical purposes.For additional information, please refer tohttps://education.[employer]/faq/OIP037(This link is being provided for information/educational purposes only).THIS TEST WAS PERFORMED AT:[facility] [id number] [place] [address]XBVABPXVALERIE ROBB MD,PHD ThinPrep?? vial Cervix uteri structure / Unknown 12/27/2024 3:20 PM EST 12/28/2024 9:15 AM EST Narrative [facility] - 01/01/2025 8:03 PM EST Collection Date: [id number] by: GRISEL Pacheco: Cervix us Marcos Hayes [facility] CYTOLOGY ORDERABLES F inal Result [facility] [address] [place] [phone] * HPV DNA, Low/High Risk (12/27/2024 3:20 PM EST) HPV High Risk Negative Negative [facility] HPV Genotype 16 Negative Negative [facility] HPV Genotype 18 Negative Negative [facility] Comment:HPV testing performe d at [facility] (CLIA#[id number]), [address] [place] [address].Testing for HPV was performed using the Oswaldo CORINNE 6800system. The presence of HPV in the female genital tract isassociated with a number of diseases, including cervicalcarcinoma. The HPV DNA high risk pool tests for HPV 31, 33,35, 39, 45, 51, 52, 56, 58, 59, 66 and 68. The testing forHPV 16 and 18 genotypes has also been performed. A positiveresult indicates detection of nucleic acid sequences fromone or more subtypes, whereas a negative result indicatessuch sequences were not detected. 12/27/2024 3:20 PM EST 12/28/2024 9:15 AM EST us Marcos Hayes CNM LAB BLOOD ORDERABLES Erika kendy Result [facility] [address] [place] [phone] * Pap Smear (12/27/2024 3:20 PM EST) Swab Cervix uteri structure / Unknown 12/27/2024 3:20 PM EST 12/28/2024 9:15 AM EST Narrative [facility] - 01/05/2025 10:00 AM EST ----- ------- Name: Tory Monreal ?Age/Sex: 49/F ? : 1975 Unit#: [id number] ?? Attend Dr: MARCOS HAYES CNM ?Re12/27/24 ?Status: DEP REF ? Location: HO.HHCLNP ? Disch: ? ----- ------- SPEC : [id number] ? RECD: 12/28/24 ? STATUS: ??SOUT ? REQ NUM: [id number] ? SABINE: 12/27/24 ? SUBM DR: MARCOS HAYES CNM ? ENTERED: ??12/28/24 ?SP TYPE: Pap Smr ?OTHR : ? ORDERED: ??Pap Smear ? Interpretation ?? Satisfactory for evaluation. ?? Negative for intraepithelial lesion or malignancy. ?? No endocervical cells seen. ?? Moderate inflammation. ? HPV High Risk: ??Negative ? HPV Genotyping 16: ??Negative ?? HPV Genotyping 18: ??Negative ?Clinical Information LMP: Unknown date Previous PAP test: Unknown date/findings ? Material Received ?? ThinPrep-Cervical ----- ------- Signed (signature on file) VICENTE Lopez ([facility]) 01/05/25 1000 ? ----- ------- ? END OF REPORT ? us Marcos Hayes [facility] CYTOLOGY ORDERABLES F inal Result [facility] [address] [place] [phone] * T-SPOT??.TB (12/02/2024 9:28 AM EST) [facility] T Spot TB Negative Negative [facility] Comment:A negative test resu lt [...] as aquantitative test. TS PANEL A 1 [facility] TS PANEL B 0 [facility] Negative Control Passed [facility] Positive Control Passed [facility] Comment:For additional infor shaquille, please refer tohttp://education.Nexalogy/faq/UBW293(This link is being provided for informational/educational purposes only.)THIS TEST WAS PERFORMED AT:[facility] [id number] [place] [address]ZNVLPGBVALERIE ROBB MD,PHD 12/02/2024 9:28 AM EST 12/02/2024 11:34 AM EST Colton Saravia MD LAB BLOOD ORDERABL ES Final Result Performing Organization Address [facility]/State/ZIP Co de Phone Number [facility] [address] [place] [phone] [phone] * BI Mammogram Screening Tomosynthesis Bilateral (12/31/2023 3:00 PM EST) Anatomical Region Laterality Modality Breast Bilateral Mammography 12/31/2023 3:00 PM EST Narrative 01/25/2024 2:25 PM EST ? [facility] [place] ? [address] ?[place] [address] ? Mammography Report ? Signed ? Patient: Tory Monreal ?MR#: M ?? [id number] ? : 1975 ?Acct:[id number] ? Age/Sex: 48 / F ?ADM Date: //24 ? Loc: HO.MAMMO ? Attending Dr: Lexi Tappahannock HIGH PRESSURE CLEANER ? Ordering Physician: Tappahannock,Lexi HIGH PRESSURE CLEANER ?Results: 1Nega ?? tive ? Date of Service: 12/31/23 ?Follow Up: 1 Year From Orig ?? inal Mammogram ? Procedure(s): MM tomosynthesis screening BI ?? Accession Number(s): [id number] ? cc: Lexi Chavarria HIGH PRESSURE CLEANER ? EXAMINATION: ?? MM SCREENING DIGITAL BREAST [...] by Tess Tesfaye MD in OV> ? 01/25/241420 ? DD/ 1500 ? TD/TT: ? Automotive Services Manager: ? Procedure Note Sekou, Sara - 01/25/2024 [facility] [address] [place] [address] [place] [address] Mammography Report Signed Patient: Tory Monreal EMR#: [id number] : 1975Acct:[id number] Age/Sex: 48 / FADM Date: 12/31/23 Loc: HO.MAMMO Attending Dr: Lxei GARCIA Ordering Physician: Lexi Chavarria FNPResults: 1Nega tive Date of Service: 12/31/23Follow Up: 1 Year From Orig inal Mammogram Procedure(s): MM tomosynthesis screening BI Accession Number(s): [id number] cc: Lexi Chavarria HIGH PRESSURE CLEANER EXAMINATION: MM SCREENING DIGITAL BREAST TOMOSYNTHESIS, BILATERAL [...] in OV> 01/25/24 1421 DD/ 1500 TD/TT: Automotive Services Manager: [facility] IMG BI PROCEDURES Final Resul t from Last 3 Months or Most Recently Relevant to Health Maintenance Insurance [facility] C3 Care Teams Nurse Clinical Relationship Specialty Start Date End Date AbramsColton Magaña MD [address] [place] [phone] PCP - General Internal Medicine 11/01/24
--- OUTSIDE RECORDS SUMMARY | 2025-01-12 15:42 | XMS_ITS | Encounter Summary ---
Author Organization [employer] Address [address] [place] [address] Care Team Providers Care Physical Education Instructor Name Role Phone Colton Suarez MD Primary Care Prov ider Encounter Details Date Type Department Care Team (Late st Contact Info) Description 01/05/2025 Orders Only [facility] [address] [place], [place] [phone] Sheri Wolf CNM [address] [place], [place] [phone] Screening examination for venereal disease (Primary Dx) Social History Tobacco Use Types Packs/Day Years [...] as of this encounter Plan of Treatment Scheduled Orders Name Type Priority Associated Diagnoses Orde r Schedule Syphilis Screen Lab Routine Screening examination for venereal disease Expected: 01/05/2025 (Approximate), Expires: 01/05/2026 documented as of this encounter Visit Diagnoses Diagnosis Screening examination for venereal disease- Primary documented in this encounter Additional Health Concerns Assessment Noted Time PHQ-9 Depression Total Score: 5 10/28/20 9:50 AM EST documented as of this encounter Care Teams Physical Education Instructor Relationship Specialty Start Date End Date Colton Suarez MD [address] [place] [phone] PCP - General Internal Medicine 11/01/24 documented as of this encounter
== END 2025-01-12 14:26 | disposition home or self-care (01) ==
LOC: HO.MAMMO 14:25
PROVIDERS: PCP Internal Medicine; Visit Provider Internal Medicine
DX: Z12.31 Encounter for screening mammogram for malignant neoplasm of breast (principal)
CPT/HCPCS: 77063; 77067

== ENCOUNTER → 2025-01-12 15:00 | Outpatient (BNV) | payer MEDICAID, SELFPAY | PROVIDERS: PCP Internal Medicine; Visit Provider Internal Medicine | DX: Z12.31 Encounter for screening mammogram for malignant neoplasm of breast (principal) | CPT/HCPCS: 77063; 77067 ==

== ENCOUNTER 2025-03-16 13:48 | Outpatient (REF) | payer OTHER, SELFPAY ==
--- OUTSIDE RECORDS SUMMARY | 2025-03-16 16:34 | XMS_ITS | Clinical Summary ---
Author Organization [employer] Address [address] [place] [address] 7t [place] [address] Care Team Providers Care Project Management Director Name Role Phone Colton Suarez MD Primary Care Prov ider Allergies Active Allergy Reactions Criticality Noted Date Comments Diphenhydramine 03/16/2015 Medications acetaminophen (Tylenol) 500 MG tabletIndicati ons:Right-side d low back pain without sciatica, unspecified chronicity Take 2 tablets (1,000 mg) by mouth every 6 (six) hours if needed for moderate pain or fever for up to 25 doses. 50 tablet 01/25/20 25 Active doxycycline (Vibra-Tabs) 100 MG tabletIndicati ons:Rosacea Take 1 tablet (100 mg) by mouth 2 times daily for 10 days. Take with a full glass of water and do not lie down for at least 30 minutes after. 20 tablet 03/07/20 25 025 Active metroNIDAZOLE (Metrogel) 1 % gelIndications :Rosacea Apply topically Once per day. 55 g 3 03/07/20 25 026 Active cyclobenzaprin e (Flexeril) 10 MG tablet Take 1 tablet (10 mg) by mouth 3 times daily for 10 days. 30 tablet 03/16/20 25 025 Active meloxicam (Mobic) 15 MG tablet Take 1 tablet (15 mg) by mouth Once per day. 30 tablet 03/16/20 25 026 Active nitrofurantoin , macrocrystal-m onohydrate, (Macrobid) 100 MG capsule Take 1 capsule (100 mg) by mouth 2 times daily for 5 days. 10 capsule 03/16/20 25 025 Active cyclobenzaprin e (Flexeril) 10 MG tablet Take 1 tablet (10 mg) by mouth 3 times daily for 10 days. 30 tablet 01/25/20 25 025 Discontinued(Re order (will not trigger notification to Pharmacy)) trimethoprim-p olymyxin b (Polytrim) ophthalmic solution Administer 1 drop into the right eye every 6 (six) hours for 10 days. 10 mL 02/21/20 25 025 metroNIDAZOLE (Metrogel) 1 % gelIndications :Rosacea Apply topically Once per day. 55 g 3 03/07/20 25 025 Discontinued(En tered in error) doxycycline (Vibra-Tabs) 100 MG tabletIndicati ons:Rosacea Take 1 tablet (100 mg) by mouth 2 times daily for 10 days. Take with a full glass of water and do not lie down for at least 30 minutes after. 20 tablet 03/07/20 25 025 Discontinued(En tered in error) Active Problems Problem Noted Date Diagnosed Date [...] Encounters Date Type Department Care Team Description 03/16/2025 9:30 AM EDT Office Visit [facility] [address] [place] [address] Colton Suarez MD Frequent urination; Vaginal discharge 03/16/2025 Travel 03/07/2025 10:15 AM EDT Office Visit [facility] [address] [place] [address] Jose Dixon MD Rosacea (Primary Dx) 03/07/2025 Travel 02/20/2025 11:00 AM EDT Office Visit [facility] [address] [place] [address] Name, MD Anup Hordeolum externum of right upper eyelid (Primary Dx) 02/09/2025 Travel 02/07/2025 Telephone [facility] [address] [place] [address] Colton Suarez MD insurance 02/03/2025 Population Health Risk Score Community Care [facility] ([facility] Department [address] [place] [phone] Provider, Population Health Generic 01/24/2025 Orders Only [facility] [address] [place] [address] Colton Suarez MD 01/24/2025 Orders Only [facility] [address] [place] [address] Colton Suarez MD Right-sided low back pain without sciatica, unspecified chronicity 01/24/2025 Telephone [facility] [address] [place] [address] Colton Suarez MD 01/05/2025 Orders Only [facility] [address] [place] [address] Marcos Hayes CNM Screening examination for venereal disease (Primary Dx) 01/05/2025 Telephone [facility] [address] [place] [address] Dawn Geronimo, RN Results 01/03/2025 9:30 AM EST Office Visit [facility] [address] [place] [address] Colton Suarez MD Annual physical exam (Primary Dx); Rosacea; Dysuria; Encounter for immunization 01/03/2025 Travel 12/27/2024 2:45 PM EST Procedure Visit [facility] [address] [place] [address] Marcos Hayes CNM Cervical cancer screening (Primary Dx); Screening examination for venereal disease; Candidiasis of vulva and vagina; Urinary symptom or sign; Family history of breast cancer in mother 12/27/2024 Patient Outreach [facility] [address] [place] [address] Colton Suarez MD Pre-visit Planning ([facility] unable to reach [facility] ) 12/27/2024 Travel from Last 3 Months Immunizations Name Administration Dates Next Due Hep B, Adolescent or Pediatric 07/15/2011,2009,09/10/2009 Influenza, IIV3, injectable 07/15/2011 Influenza, Split (incl. nini fied surface antigen) 08/26/2012 Tdap 01/03/2025,08/26/2012 Zoster, Recombinant 03/14/2025 Family History Medical History Relation Name Comments [...] Sign Reading Time Taken Comments Blood Pressure 112/70 03/16/2025 9:25 AM EDT Pulse 70 03/16/2025 9:25 AM EDT Temperature 37.1 ??C (98.7 ??F) 03/16/2025 9:25 AM ED T Respiratory Rate 16 03/16/2025 9:25 AM EDT Oxygen Saturation 98% 03/07/2025 10:28 AM EDT Inhaled Oxygen Concentration - - Weight 52.6 kg (116 lb) 03/16/2025 9:25 AM EDT Height 154.9 cm (5' 1 ) 03/16/2025 9:25 AM EDT Body Mass Index 21.92 03/16/2025 9:25 AM EDT Plan of Treatment Upcoming Encounters Date Type Department Care Team (Late st Contact Info) Description 05/22/2025 3:30 PM EDT Nurse Only [facility] [address] [place] [address] 05/23/2025 9:00 AM EDT Office Visit [facility] [address] [place] [address] Jose Dixon MD [address] [place] [address] 06/19/2025 8:30 AM EDT Telemedicine [facility] [address] [place] [address] Colton Suarez MD [address] [place] [address] Health Maintenance Due Date Last Done Comments CT Colonography 1973 Colonoscopy 1973 Colorectal Cancer Screening 1975 FIT DNA/Cologuard 1975 FIT 1975 FOBT 1975 HIV Screening 1975 Sigmoidoscopy 1975 Family Planning (PISQ) 1988 Hepatitis C Screening 1991 Hepatitis B Vaccines (1 of 3 - 19+ 3-dose series) 1992 07/15/2011, 09/27/2010, 09/10/2009 Pneumococcal Vaccine: 50+ Years (1 of 1 - PCV) 2023 COVID-19 Vaccine (1 - season) 2024 Influenza Vaccine (#1) 2024 08/26/2012, 2010 Zoster Vaccines (2 of 2) 05/09/2025 03/14/2025 Depression Screening 10/28/2025 10/28/2024, 10/28/20 24 Alcohol/Substance Use Screening 01/03/2026 01/03/2025 SDOH Screening 01/03/2026 01/03/2025 Tobacco Screening 03/07/2026 03/07/2025 Mammogram 01/12/2027 01/12/2025, 02/0 06/2024, 08/23/2021, Additional history exists Cervical Cancer Screening 12/27/2029 HPV/Cotest 12/27/2029 12/27/2024 [...] Associated Diagnosis Comments POCT URINALYSIS DIPSTICK Routine 03/16/2025 9:49 AM EDT Frequent urination BI MAMMOGRAM SCREENING TOMOSYNTHESIS BILATERAL Routine 01/12/2025 2:35 PM EST Encounter for screening mammogram for malignant neoplasm of breast POCT URINALYSIS DIPSTICK Routine 01/03/2025 10:52 AM [...] cancer screening HPV DNA, LOW/HIGH RISK Routine 3:20 PM EST from Last 3 Months Results * (ABNORMAL) POCT Urinalysis (03/16/2025 9:49 AM EDT) Only the most recent of2 resultswithin the time period is included. Color, UA Yellow Clarity, UA Clear Glucose, UA Negative Bilirubin, UA Negative Ketones, UA Negative Spec Grav, UA 1.020 Blood, UA Positive(A) Negative, None Detected Comment:small pH, UA 6.5 Protein, UA Negative Urobilinogen, UA 0.2 Leukocytes, UA Trace Negative, Rare, Trace Nitrite, UA Negative Negative, None Detected Appearance, UA clear QC Media Lot # [id number] Lot# Expiration Date , Urine 03/16/2025 9:49 AM EDT Colton Saravia MD POINT OF CARE TEST ENTER/EDIT ORDERABLES Final Result * BI Mammogram Screening Tomosynthesis Bilateral (01/12/2025 2:35 PM EST) Anatomical Region Laterality Modality Breast Bilateral Mammography 01/12/2025 2:35 PM EST Narrative 01/20/2025 3:13 PM EST ? [facility] [place] ? [facility] ?[place] [address] ? Mammography Report ? Signed ? Patient: Manjit Leal,Lidia ?MR#: [id number] ?? [id number] ? : 1975 ?Acct:[id number] ? Age/Sex: 49 / F ?ADM Date: 02/20/25 ? Loc: HO.MAMMO ? Attending Dr: Colton Saravia MD ? Ordering Physician: Colton Suarez MD ?Res ?? ults: 2Benign Findings ? Date of Service: 01/12/25 ?Follow Up: 1 Year From Orig ?? inal Mammogram ? Procedure(s): MM tomosynthesis screening BI ?? Accession Number(s): [id number] ? cc: Colton Suarez MD ? EXAMINATION: ?? MM SCREENING DIGITAL BREAST TOMOSYNTHESIS, BILATERAL ? CLINICAL INFORMATION: ? Screening. Asymptomatic. ? COMPARISON: ?? Mammography: Comparison is made with available priors ? TECHNIQUE: ?? Digital breast mammography with tomosynthesis is performed in both the ?? craniocaudal and mediolateral oblique views along with computer-aided ?? detection (CAD). ? FINDINGS: ?? The breasts are heterogeneously dense, which may obscure small masses ?? (ACR BI-RADS breast composition Category c). ?? Bilateral scattered asymmetries are stable dating back to 2019. ?? There are no significant masses, abnormal calcifications, or other ?? abnormalities. ? MM/MM tomosynthesis screening BI ?? IMPRESSION: ?? No mammographic evidence of malignancy. ? ASSESSMENT: ? BI-RADS BI-RADS 2 - Benign Findings ? RECOMMENDATION: ?? Routine annual mammography screening. ? 1 year F/U ? This examination should not preclude the clinical evaluation of a ?? suspicious palpable abnormality. ? This patient's information was entered into a reminder system with a ?? target due date for their next mammogram. ? Electronically signed by: ??Vanesa Carreno DO ??01/20/2025 03:11 PM EST ?? RP ? Dictated By: ?Vanesa Carreno DO ? Signed By: ?<Electronically signed by Vanesa Carreno, DO in OV> ? 01/20/25 1511 ? DD/ 1435 ? TD/TT: 01/12/25 1459 ? Director Metabolism: ? Procedure Note Donotuseinterpreter, Image - 01/20/2025 [place] [facility] [address] [place] [address] Mammography Report Signed Patient: Tory Monreal EMR#: [id number] : 1975Acct:[id number] Age/Sex: 49 / FADM Date: 01/12/25 Loc: HO.MAMMO Attending Dr: Colton Saravia MD Ordering Physician: Colton Suarez ults: 2Benign Findings Date of Service: 01/12/25Follow Up: 1 Year From Orig inal Mammogram Procedure(s): MM tomosynthesis screening BI Accession Number(s): [id number] cc: Colton Suarez MD EXAMINATION: MM SCREENING DIGITAL BREAST TOMOSYNTHESIS, BILATERAL CLINICAL INFORMATION: Screening. Asymptomatic. COMPARISON: Mammography: Comparison is made with available priors TECHNIQUE: Digital breast mammography with tomosynthesis is performed in both the craniocaudal and mediolateral oblique views along with computer-aided detection (CAD). FINDINGS: The breasts are heterogeneously dense, which may obscure small masses (ACR BI-RADS breast composition Category c). Bilateral scattered asymmetries are stable dating back to 2019. There are no significant masses, abnormal calcifications, or other abnormalities. MM/MM tomosynthesis screening BI IMPRESSION: No mammographic evidence of malignancy. ASSESSMENT: BI-RADS BI-RADS 2 - Benign Findings RECOMMENDATION: Routine annual mammography screening. 1 year F/U This examination should not preclude the clinical evaluation of a suspicious palpable abnormality. This patient's information was entered into a reminder system with a target due date for their next mammogram. Electronically signed by: Vanesa Carreno DO 01/20/2025 03:11 PM [facility] Dictated By: Vanesa Carreno DO Signed By: <Electronically signed by Vanesa Carreno DO in OV> 01/20/25 1511 DD/ 1435 TD/TT: 01/12/25 1459 Director Metabolism: Colton Saravia MD IMG BI PROCEDURES Final Result * POCT fern test, vaginal [...] 3:23 PM EST 12/28/2024 11:21 AM EST Comment:[facility] Narrative [facility] - 12/29/2024 11:32 AM EST Urine Culture No growth. Specimen Source: Urine clean catch Marcos Hayes CNM LAB MICROBIOLOGY - GENERA L ORDERABLES Final Result [facility] [address] [place] [address] [phone] * STI testing add on (NG, CT, Trich) (12/27/2024 3:20 PM EST) Trichomonas (NAAT) Not Detected Not Detected [facility] Comment:Methodology: Transcr iption Mediated Amplification(TMA)The analytical performance characteristics of thisassay have been determined by [facility], [place], [place]. The modificationshave not been cleared or approved by the FDA. Thisassay has been validated pursuant to the CLIAregulations and is used for clinical purposes.For additional information, please refer tohttp://education.HauteDay/faq/Trichomonastma (This link is being providedfor information/educational purposes only).THIS TEST WAS PERFORMED AT:[facility] [address] [place] [phone] ROBB MD,PHD CTNG Ref Lab Not Detected Not Detected [facility] NG Ref Lab Not Detected Not Detected [facility] Comment:Methodology: Transcr iption Mediated Amplification(TMA) to detect RNA.The analytical performance characteristics of thisassay, when used to test [facility] specimens havebeen determined by [facility]. The modificationshave not been cleared or approved by the FDA.This assay has been validated pursuant to the CLIAregulations and is used for clinical purposes.For additional information, please refer tohttps://TrialPay.HauteDay/faq/VGK356(This link is being provided for information/educational purposes only).THIS TEST WAS PERFORMED AT:[facility] [address] [place] [phone] ROBB MD,PHD ThinPrep?? vial Cervix uteri structure / Unknown 12/27/2024 3:20 PM EST 12/28/2024 9:15 AM EST Narrative [facility] - 01/01/2025 8:03 PM EST Collection Date: [id number] by: GRISEL Pacheco: Cervix us Marcos Hayes [facility] CYTOLOGY ORDERABLES F inal Result [facility] [address] [place] [address] [phone] * HPV DNA, Low/High Risk (12/27/2024 3:20 PM EST) HPV High Risk Negative Negative [facility] HPV Genotype 16 Negative Negative [facility] HPV Genotype 18 Negative Negative [facility] Comment:HPV testing performe d at [facility] (CLIA#[id number]), [address] [place] [id number].Testing for HPV was performed using the Oswaldo [...] 12/28/2024 9:15 AM EST us Marcos Hayes [facility] BLOOD ORDERABLES Erika larry Result [facility] [address] [place] [phone] * Pap Smear (12/27/2024 3:20 PM EST) Swab Cervix uteri structure / Unknown 12/27/2024 3:20 PM EST 12/28/2024 9:15 AM EST Narrative [facility] - 01/05/2025 10:00 AM EST ----- ------- Name: Tory Monreal ?Age/Sex: 49/F ? : 1975 Unit#: [id number] ?? Attend Dr: MARCOS HAYES CNM ?Re12/27/24 ?Status: DEP REF ? [facility] ? Disch: ? ----- ------- SPEC : [id number] ? RECD: 12/28/24 ? STATUS: ??SOUT ? REQ NUM: [id number] ? SABINE: 12/27/24 ? SUBM DR: MARCOS HAYES CNM ? ENTERED: ??12/28/24 ?SP TYPE: Pap Smr ?OTHR DR: ? ORDERED: ??Pap Smear ? Interpretation ?? [...] END OF REPORT ? us Marcos Hayes [facility] CYTOLOGY ORDERABLES F inal Result [facility] [address] [place] [address] [phone] from Last 3 Months Insurance [id number] Care Teams Project Management Director Relationship Specialty Start Date End Date Colton Suarez MD [address] [place] [phone] PCP - General Internal Medicine 11/01/24
--- OUTSIDE RECORDS SUMMARY | 2025-03-16 16:35 | XMS_ITS | Encounter Summary ---
Author Organization [employer] Address [address] [facility] [address] 7t [place] [address] Care Team Providers Care Pulper Operator Name Role Phone Lexi Chavarria [facility] Primary Care Provider [phone] Colton Suarez MD Primary Care Prov ider Encounter Details Date Type Department Care Team ([facility] Contact Info) Description 06/23/2023 Abstract [facility] [address] [place], [place] [phone] [facility] [address] [place], [place] [phone] Social History Tobacco Use Types Packs/Day Years [...] Department Care Team (Late Contact Info) Description 05/22/2025 3:30 PM EDT Nurse Only [facility] [address] [place], [place] [phone] 05/23/2025 9:00 AM EDT Office Visit [facility] [address] [place] [address] Jose Dixon MD [address] [place] [address] 06/19/2025 8:30 AM EDT Telemedicine [facility] [address] [place] [address] Colton Suarez MD [address] [place] [address] documented as of this encounter Visit Diagnoses Not on filedocumented in this encounter Additional Health Concerns Assessment Noted Time PHQ-9 Depression Total Score: 6 06/23/20 23 11:39 AM EDT documented as of this encounter Care Teams Pulper Operator Relationship Specialty Start Date End Date Lexi Chavarria FNP [address] [place] [phone] PCP - General Family Medicine 08/19/21 11/17/23 Colton Suarez MD [address] [place] [address] PCP - General Internal Medicine 11/01/24 documented as of this encounter
--- OUTSIDE RECORDS SUMMARY | 2025-03-16 16:35 | XMS_ITS | Encounter Summary ---
Author Organization [employer] Address [address] [place] [address] 7t [place] [address] Care Team Providers Care Artificial Breeding Technician Name Role Phone Colton Suarez MD Primary Care Prov ider Reason for Referral * Imaging (Routine) - Authorized Specialty Diagnoses / Procedures Referred By Gil hayes Referred To Contact Radiology Diagnoses Frequent urination Procedures US Renal Complete Colton Suarez MD [address] [place] [address] Phone: tel: fax: [address] Phone: tel: fax: Referral ID Status Reason Start Date Expiration Date V isits Requested Visits Authorized [id number] Authorized 03/16/2025 03/16/2026 1 1 Encounter Details Date Type Department Care Team (Late st Contact Info) Description 03/16/2025 9:30 AM EDT Office Visit [facility] [address] [place] [address] Colton Suarez MD [address] [place] [address] Frequent urination; Vaginal discharge Social History Tobacco Use Types Packs/Day Years [...] 16 03/16/2025 9:25 AM EDT Oxygen Saturation - - Inhaled Oxygen Concentration - - Weight 52.6 kg (116 lb) 03/16/2025 9:25 AM EDT Height 154.9 cm (5' 1 ) 03/16/2025 9:25 AM EDT Body Mass Index 21.92 03/16/2025 9:25 AM EDT documented in this encounter Progress Notes * Colton Saravia MD - 03/16/2025 9:30 AM EDT Subjective Patient ID: Tory Saravia is a 49 y.o. female who presents for No chief complaint on file.. UTI This is a new problem. Pertinent negatives include no hematuria. Review of Systems Genitourinary: Positive for dysuria and frequency. Negative for hematuria. Objective Physical Exam Constitutional: Appearance: Normal appearance. Cardiovascular: Rate and Rhythm: Normal rate. Heart sounds: No murmur heard. Pulmonary: Effort: Pulmonary effort is normal. No respiratory distress. Breath sounds: No stridor. No wheezing or rhonchi. Neurological: General: No focal deficit present. Mental Status: She is alert and oriented to person, place, and time. Psychiatric: Mood and Affect: Mood normal. Behavior: Behavior normal. Assessment/Plan Problem List Items Addressed This Visit None Visit Diagnoses Frequent urination Positive for UTI, will provide nitrofurantoing for 5 days, will sent test for culture. Relevant Orders POCT Urinalysis (Completed) US Renal Complete Vaginal discharge Relevant Orders Chlamydia/N. Gonorrhoeae RNA, TMA, Urogenitial Bacterial Vaginosis Panel documented in this encounter Plan of Treatment Upcoming Encounters Date Type Department Care Team (Late st Contact Info) Description 05/22/2025 3:30 PM EDT Nurse Only [facility] [address] [place] [address] 05/23/2025 9:00 AM EDT Office Visit [facility] [address] [place] [address] Jose Dixon MD [address] [place] [address] 06/19/2025 8:30 AM EDT Telemedicine [facility] [address] [place] [address] Colton Suarez MD [address] [place] [address] Scheduled Orders Name Type Priority Associated Diagnoses Orde r Schedule Chlamydia/N. Gonorrhoeae RNA, TMA, Urogenitial Microbiology Routine Vaginal discharge Ordered: 03/16/2025 Bacterial Vaginosis Panel Microbiology Routine Vaginal discharge Ordered: 03/16/2025 Renal Complete Imaging Routine Frequent urination Expected: 03/16/2025, Expires: 03/16/2026 documented as of this encounter Procedures Procedure Name Priority Date/Time Associated Diagnosis Comments POCT URINALYSIS DIPSTICK Routine 03/16/2025 9:49 AM EDT Frequent urination documented in this encounter Results * (ABNORMAL) POCT Urinalysis (03/16/2025 9:49 AM EDT) Color, UA Yellow Clarity, UA Clear Glucose, UA Negative Bilirubin, UA Negative Ketones, UA Negative Spec Grav, UA 1.020 Blood, UA Positive(A) Negative, None Detected Comment:small pH, UA 6.5 Protein, UA Negative Urobilinogen, UA 0.2 Leukocytes, UA Trace Negative, Rare, Trace Nitrite, UA Negative Negative, None Detected Appearance, UA clear QC Media Lot # [id number] Lot# Expiration Date Urine 03/16/2025 9:49 AM EDT Colton Saravia MD POINT OF CARE TEST ENTER/EDIT ORDERABLES Final Result documented in this encounter Visit Diagnoses Diagnosis Frequent urination Urinary frequency Vaginal discharge Leukorrhea, not specified as infective documented in this encounter Additional Health Concerns Assessment Noted Time PHQ-9 Depression Total Score: 5 10/28/20 9:50 AM EST documented as of this encounter Care Teams Artificial Breeding Technician Relationship Specialty Start Date End Date Colton Suarez MD [address] [place] [phone] PCP - General Internal Medicine 11/01/24 documented as of this encounter
--- OUTSIDE RECORDS SUMMARY | 2025-03-16 16:35 | XMS_ITS | Encounter Summary ---
Author Organization [employer] Address [address] [place] [address] Care Team Providers Care Health Commissioner Name Role Phone Coltno Suarez MD Primary Care Prov ider Encounter Details Date Type Department Care Team (Latest Contact Info) Description 03/16/2025 Travel Social History Tobacco Use Types Packs/Day [...] Description 05/22/2025 3:30 PM EDT Nurse Only [facility] [address] [place] [address] 05/23/2025 9:00 AM EDT Office Visit [facility] [address] [place] [address] Jose Dixon MD [address] [place] [address] 06/19/2025 8:30 AM EDT Telemedicine [facility] [address] [place] [address] Colton Suarez MD [address] [place] [address] documented as of this encounter Visit Diagnoses Not on filedocumented in this encounter Additional Health Concerns Assessment Noted Time PHQ-9 Depression Total Score: 5 10/28/20 24 9:50 AM EST documented as of this encounter Care Teams Health Commissioner Relationship Specialty Start Date End Date Colton Suarez MD [address] [place] [address] PCP - General Internal Medicine 11/01/24 documented as of this encounter
[2025-03-17 06:17] LABS: CT PCR NOT DETECTED (Not Detect.); NG PCR NOT DETECTED (Not Detect.)
[2025-03-17 11:20] LABS: Bacterial Vaginosis PCR NEGATIVE (Negative); Candida Group PCR NOT DETECTED (Not Detect); Candida glab krusei PCR NOT DETECTED (Not Detect); Trichomonas vaginalis PCR NOT DETECTED (Not Detect)
== END 2025-03-16 13:49 | disposition home or self-care (01) ==
LOC: HO.CHCLNP 13:48
PROVIDERS: Visit Provider Internal Medicine
DX: N89.8 Other specified noninflammatory disorders of vagina (principal)
CPT/HCPCS: 81515; 87491; 87591

== ENCOUNTER 2025-03-21 17:59 | Outpatient (REF) | payer OTHER, SELFPAY ==
--- OUTSIDE RECORDS SUMMARY | 2025-03-21 18:47 | XMS_ITS | Encounter Summary ---
Author Organization [employer] Address [address] [facility] 7t [place] [address] Care Team Providers Care Advertising Sales Associate Name Role Phone Lexi Chavarria [facility] Primary Care Provider [phone] Colton Suarez MD Primary Care Prov ider Colton Suarez MD Primary Care Prov ider Encounter Details Date Type Department Care Team (Late Contact Info) Description 06/23/2023 Abstract [facility] [address] [place], [place] [phone] [facility] [address] [place] [address] Social History Tobacco Use Types Packs/Day Years [...] Department Care Team (Late Contact Info) Description 03/24/2025 9:30 AM EDT Telemedicine [facility] [address] [place] [address] Colton Suarez MD [address] [place] [address] 05/22/2025 3:30 PM EDT Nurse Only [facility] [address] [place] [address] 05/23/2025 9:00 AM EDT Office Visit [facility] [address] [place] [address] Jose Dixon MD [address] [place] [address] 06/19/2025 8:30 AM EDT Telemedicine [facility] [address] [place] [address] Colton Suarez MD [address] [place] [address] documented as of this encounter Visit Diagnoses Not on filedocumented in this encounter Additional Health Concerns Assessment Noted Time PHQ-9 Depression Total Score: 6 06/23/20 23 11:39 AM EDT documented as of this encounter Care Teams Advertising Sales Associate Relationship Specialty Start Date End Date [facility] [address] [place] [address] PCP - General Family Medicine 08/19/21 11/17/23 Colton Suarez MD [address] [place] [address] PCP - General Internal Medicine 11/01/24 03/20/25 Colton Suarez MD [address] [place] [address] PCP - General Internal Medicine 03/21/25 documented as of this encounter
--- OUTSIDE RECORDS SUMMARY | 2025-03-21 18:47 | XMS_ITS | Encounter Summary ---
Author Organization [employer] Address [address] [facility] [address] 7[address] [place] [address] Care Team Providers Care Can Crimper Name Role Phone Colton Suarez MD Primary [...] Care Team (Late st Contact Info) Description 03/24/2025 9:30 AM EDT Telemedicine [facility] [address] [place] [address] Colton Suarez MD [address] [place] [address] 05/22/2025 3:30 PM EDT Nurse Only [facility] [address] [place] [address] 05/23/2025 9:00 AM EDT Office Visit [facility] [address] [place] [address] Jose Dixno MD [address] [place] [address] 06/19/2025 8:30 AM EDT Telemedicine [facility] [address] [place] [address] Colton Suarez MD [address] [place] [address] documented as of this encounter Visit Diagnoses Not on filedocumented in this encounter Additional Health Concerns Assessment Noted Time PHQ-9 Depression Total Score: 5 10/28/20 9:50 AM EST documented as of this encounter Care Teams Can Crimper Relationship Specialty Start Date End Date Colton Suarez MD [address] [place] [address] PCP - General Internal Medicine 11/01/24 03/20/25 documented as of this encounter
--- OUTSIDE RECORDS SUMMARY | 2025-03-21 18:47 | XMS_ITS | Encounter Summary ---
Author Organization [employer] Address [address] [place] [address] 7t [place] [address] Care Team Providers Care Digital Sales Planner Name Role Phone Colton Suarez MD Primary Care Prov ider Reason for Referral * Imaging (Routine) - Authorized Specialty Diagnoses / Procedures Referred By Gil hayes Referred To Contact Radiology Diagnoses Frequent urination Procedures US Renal Complete Colton Suarez MD [address] [place] [address] Phone: tel: fax: [address] Phone: tel: fax: Referral ID Status Reason Start Date Expiration Date V isits Requested Visits Authorized [id number] Authorized 03/16/2025 03/16/2026 1 1 Encounter Details Date Type Department Care Team (Late st Contact Info) Description 03/16/2025 9:30 AM EDT Office Visit [facility] PEDS [address] [place] [address] Colton Suarez MD [address] [place] [address] Frequent urination; Vaginal discharge Social History Tobacco [...] Info) Description 03/24/2025 9:30 AM EDT Telemedicine [facility] [address] [place] [address] Colton Suarez MD [address] [place] [address] 05/22/2025 3:30 PM EDT Nurse Only [facility] MED[facility] [address] [place] [address] 05/23/2025 9:00 AM EDT Office Visit [facility] [address] [place] [address] Jose Dixon MD [address] [place] [address] 06/19/2025 8:30 AM EDT Telemedicine [facility] [address] [place] [address] Colton Suarez MD [address] [place] [address] Scheduled Orders Name Type Priority Associated Diagnoses Orde r Schedule US Renal Complete Imaging Routine Frequent urination Expected: 03/16/2025, Expires: 03/16/2026 documented as of this encounter Procedures Procedure Name Priority Date/Time Associated Diagnosis Comments BACTERIAL VAGINOSIS PANEL Routine 03/16/2025 10:45 AM EDT Vaginal discharge CHLAMYDIA/N. GONORRHOEAE RNA, TMA, UROGENITAL Routine 03/16/2025 10:45 AM EDT Vaginal discharge POCT URINALYSIS DIPSTICK Routine 03/16/2025 9:49 AM EDT Frequent urination documented in this encounter Results * Bacterial Vaginosis Panel (03/16/2025 10:45 AM EDT) TRICHOMONAS VAGINALIS DETECTION BY PCR NOT DETECTED Not Detect [facility] BACTERIAL VAGINOSIS DETECTION BY PCR NEGATIVE Negative [facility] Comment:The BV organism targ ets of the Xpert Xpress MVP test can becommensal in women; Xpert Xpress MVP positive results forbacterial vaginosis should be considered in conjunction withother clinical and patient information to determine thedisease status. Organisms that are not detected by the XpertXpress MVP test have also been reported to be associatedwith BV and aerobic vaginitis.The Xpert Xpress MVP test performance has not been evaluatedin patients under the age of 14. [employer] DETECTION BY PCR NOT DETECTED Not Detect [facility] Kenyetta glab krusei PCR NOT DETECTED Not Detect [facility] Swab Vaginal structure / Unknown 03/16/2025 10:45 AM EDT 03/16/2025 5:37 PM EDT us Colton Saravia MD LAB MICROBIOLOGY - GENERAL ORDERABLES Final Result [facility] [address] [place] [address] [phone] * Chlamydia/N. Gonorrhoeae RNA, TMA, Urogenitial (03/16/2025 10:45 AM EDT) CT PCR NOT DETECTED Not Detect. [facility] Comment:A not detected test result does not exclude the possibilityof infection because test results can be affected byimproper specimen collection, concurrent antibiotic therapy,or the number of organisms in the specimen which may bebelow the sensitivity of the test. As with many diagnostictests, results from the Xpert CT/NG assay should beinterpreted in conjunction with other laboratory andclinical data available to the clinician.Xpert CT/NG performance has not been evaluated in patientsless than 14 years of age. The assay should not be used forthe evaluationof suspected sexual abuse or for other medico-legalindications. Additional testing is recommended in anycircumstance when false positive or false negative resultscould lead to adverse medical, social or psychologicalconsequences. NG PCR NOT DETECTED Not Detect. [facility] Comment:A not detected test result does not exclude the possibilityof infection because test results can be affected byimproper specimen collection, concurrent antibiotic therapy,or the number of organisms in the specimen which may bebelow the sensitivity of the test. As with many diagnostictests, results from the Xpert CT/NG assay should beinterpreted in conjunction with other laboratory andclinical data available to the clinician.Xpert CT/NG performance has not been evaluated in patientsless than 14 years of age. The assay should not be used forthe evaluationof suspected sexual abuse or for other medico-legalindications. Additional testing is recommended in anycircumstance when false positive or false negative resultscould lead to adverse medical, social or psychologicalconsequences. Swab (Vaginal Swab) 03/16/2025 10:45 AM EDT 03/16/2025 5:37 PM EDT Narrative [facility] - 03/17/2025 6:17 AM EDT Vaginal Colton Saravia MD LAB MICROBIOLOGY - GENERAL ORDERABLES Final Result [facility] [address] [place] [phone] [phone] * (ABNORMAL) POCT Urinalysis (03/16/2025 9:49 AM [...] documented as of this encounter Care Teams Digital Sales Planner Relationship Specialty Start Date End Date Colton Suarez MD [address] [place] [address] PCP - General Internal Medicine 11/01/24 03/20/25 documented as of this encounter
--- OUTSIDE RECORDS SUMMARY | 2025-03-21 18:47 | XMS_ITS | Encounter Summary ---
Author Organization [employer] Address [address] [facility] [address] [place] [address] Care Team Providers Care Cashier Tube Room Name Role Phone Colton Suarez MD Primary Care Prov ider Encounter Details Date Type Department Care Team (Late st Contact Info) Description 03/21/2025 Orders Only [facility] [address] [place], [place] [phone] Cristofer Jurado MD [address] [place] [address] Social History Tobacco Use Types Packs/Day Years [...] Info) Description 03/24/2025 9:30 AM EDT Telemedicine [facility] [address] [place] [address] Colton Suarez MD [address] [place] [address] 05/22/2025 3:30 PM EDT Nurse Only [facility] [address] [place] [address] 05/23/2025 9:00 AM EDT Office Visit [facility] [address] [place] [address] Jose Dixon MD [address] [place] [address] 06/19/2025 8:30 AM EDT Telemedicine [facility] [address] [place] [address] Colton Suarez MD [address] [place] [address] documented as of this encounter Visit Diagnoses Not on filedocumented in this encounter Additional Health Concerns Assessment Noted Time PHQ-9 Depression Total Score: 5 10/28/20 24 9:50 AM EST documented as of this encounter Care Teams Cashier Tube Room Relationship Specialty Start Date End Date Colton Suarez MD [address] [place] [phone] PCP - General Internal Medicine 03/21/25 documented as of this encounter
--- OUTSIDE RECORDS SUMMARY | 2025-03-21 18:47 | XMS_ITS | Clinical Summary ---
Author Organization [employer] Address [address] [place] [address] 7t [place] [address] Care Team Providers Care Screwdown Operator Name Role Phone Colton Suarez MD Primary Care Prov ider Allergies Active Allergy Reactions Criticality Noted Date Comments Diphenhydramine 03/16/2015 Medications metroNIDAZOLE (Metrogel) 1 % gelIndications :Rosacea Apply topically Once per day. 55 g 3 03/07/20 25 026 Active meloxicam (Mobic) 15 MG tablet Take 1 tablet (15 mg) by mouth Once per day. 30 tablet 03/16/20 25 026 Active nitrofurantoin , macrocrystal-m onohydrate, (Macrobid) 100 MG capsule Take 1 capsule (100 mg) by mouth 2 times daily for 5 days. 10 capsule 03/16/20 25 025 Active acetaminophen (Tylenol) 500 MG tabletIndicati ons:Right-side d low back pain without sciatica, unspecified chronicity Take 2 tablets (1,000 mg) by mouth every 6 (six) hours if needed for moderate pain or fever for up to 25 doses. 50 tablet 03/21/20 25 Active ibuprofen 400 MG tablet Take 1 tablet (400 mg) by mouth every 6 (six) hours if needed for moderate pain or fever for up to 30 doses. 30 tablet 03/21/20 25 Active amoxicillin-cl avulanate (Augmentin) 875-125 MG tablet Take 1 tablet by mouth 2 times daily for 5 days. 10 tablet 03/21/20 25 025 Active lidocaine (Lidoderm) 5 % patch Apply 1 patch topically Once per day. Remove & discard patch within 12 hours or as directed by . 30 patch 2 03/21/20 25 026 Active cyclobenzaprin e (Flexeril) 10 MG tablet Take 1 tablet (10 mg) by mouth if needed in the morning, at noon, and at bedtime for muscle spasms. 20 tablet 03/21/20 25 Active acetaminophen (Tylenol) 500 MG tabletIndicati ons:Right-side d low back pain without sciatica, unspecified chronicity Take 2 tablets (1,000 mg) by mouth every 6 (six) hours if needed for moderate pain or fever for up to 25 doses. 50 tablet 01/25/20 25 025 Discontinued(Re order (will not trigger notification to Pharmacy)) cyclobenzaprin e (Flexeril) 10 MG tablet Take [...] minutes after. 20 tablet 03/07/20 25 025 cyclobenzaprin e (Flexeril) 10 MG tablet Take 1 tablet (10 mg) by mouth 3 times daily for 10 days. 30 tablet 03/16/20 25 025 Discontinued(Re order (will not trigger notification to Pharmacy)) cyclobenzaprin e (Flexeril) 10 MG tablet Take 1 tablet (10 mg) by mouth if needed in the morning, at noon, and at bedtime for muscle spasms. 3020 tablet 03/21/20 25 025 Discontinued(Re order (will not trigger notification to Pharmacy)) Active Problems Problem Noted Date Diagnosed Date [...] Encounters Date Type Department Care Team Description 03/21/2025 9:40 AM EDT Office Visit [facility] [address] [address] Cristofer Jurado MD Right-sided low back pain without sciatica, unspecified chronicity (Primary Dx); Acute right-sided thoracic back pain; Dysuria 03/21/2025 Orders Only [facility] [address] [place] [phone] Cristofer Jurado MD 03/21/2025 Travel 03/16/2025 9:30 AM EDT Office Visit [facility] [address] [place] [address] Colton Suarez MD Frequent urination; Vaginal discharge 03/16/2025 Travel 03/07/2025 10:15 AM EDT Office Visit [facility] [address] [place] [address] Jose Dixon MD Rosacea (Primary Dx) 03/07/2025 Travel 02/20/2025 11:00 AM EDT Office Visit [facility] [address] [place] [phone] Anup Lomax MD Hordeolum externum of right upper eyelid (Primary Dx) 02/09/2025 Travel 02/07/2025 Telephone [facility] [address] [place] [address] Colton Suarez MD insurance 02/03/2025 Population Health Risk Score [facility] [address] [place] [phone] Provider, Population Health Generic 01/24/2025 Orders Only [facility] [address] [place] [address] Colton Suarez MD 01/24/2025 Orders Only [facility] [address] [place] [address] Colton Suarez MD Right-sided low back pain without sciatica, unspecified chronicity 01/24/2025 Telephone [facility] [address] [place] [address] Colton Suarez MD 01/05/2025 Orders Only [facility] [address] [place] [address] Marcos Hayes CNM Screening examination for venereal disease (Primary Dx) 01/05/2025 Telephone [facility] [address] [place] [address] Dawn Geronimo RN Results 01/03/2025 9:30 AM EST Office Visit [facility] [address] [place] [address] Colton Suarez MD Annual physical exam (Primary Dx); Rosacea; Dysuria; Encounter for immunization 01/03/2025 Travel 12/27/2024 2:45 PM EST Procedure Visit [facility] [address] [place] [address] Marcos Hayes CNM Cervical cancer screening (Primary Dx); Screening examination for venereal disease; Candidiasis of vulva and vagina; Urinary symptom or sign; Family history of breast cancer in mother 12/27/2024 Patient Outreach [facility] [address] [place] [address] Colton Suarez MD Pre-visit Planning ([facility] unable to reach [facility] ) 12/27/2024 Travel from Last 3 Months [...] Sign Reading Time Taken Comments Blood Pressure 120/70 03/21/2025 9:01 AM EDT Pulse 78 03/21/2025 9:01 AM EDT Temperature 36.7 ??C (98 ??F) 03/21/2025 9:01 AM EDT Respiratory Rate 17 03/21/2025 9:01 AM EDT Oxygen Saturation 100% 03/21/2025 9:01 AM EDT Inhaled Oxygen Concentration - - Weight 54.3 kg (119 lb 12.8 oz) 03/21/2025 9:01 AM EDT Height 154.9 cm (5' 1 ) 03/16/2025 9:25 AM EDT Body Mass Index 22.64 03/16/2025 9:25 AM EDT Plan of Treatment Upcoming Encounters Date Type Department Care Team (Late Contact Info) Description 03/24/2025 9:30 AM EDT Telemedicine [facility] [address] [place] [address] Colton Suarez MD [address] [place] [address] 05/22/2025 3:30 PM EDT Nurse Only [facility] [address] [place], [place] [phone] 05/23/2025 9:00 AM EDT Office Visit [facility] [address] [place] [address] Jose Dixon MD [address] [place] [address] 06/19/2025 8:30 AM EDT Telemedicine [facility] [address] [place] [address] Colton Suarez MD [address] [place] [address] Health Maintenance Due Date Last Done Comments [...] - PCV) 2023 COVID-19 Vaccine (1 - 2023- season) 2024 Influenza Vaccine (#1) 2024 08/26/2012, 2010 Zoster Vaccines (2 of 2) 05/09/2025 03/14/2025 Depression Screening 10/28/2025 10/28/2024, 10/28/20 24 Alcohol/Substance Use Screening 01/03/2026 01/03/2025 SDOH Screening 01/03/2026 01/03/2025 Tobacco Screening 03/21/2026 03/21/2025 Mammogram 01/12/2027 01/12/2025, 06/2024, 08/23/2021, Additional history exists Cervical Cancer [...] Associated Diagnosis Comments POCT URINALYSIS DIPSTICK Routine 03/21/2025 10:09 AM EDT Right-sided low back pain without sciatica, unspecified chronicity BACTERIAL VAGINOSIS PANEL Routine 03/16/2025 10:45 AM [...] EST from Last 3 Months Results * POCT urinalysis dipstick manually resulted (03/21/2025 10:09 AM EDT) Only the most recent of3 resultswithin the time period is included. Color, UA Yellow Clarity, UA Clear Glucose, UA Negative Bilirubin, UA Negative Ketones, UA Negative Spec Grav, UA 1.020 Blood, UA Negative Negative, None Detected pH, UA 7.0 Protein, UA Negative Urobilinogen, UA 0.2 Leukocytes, UA Negative Negative, Rare, Trace Nitrite, UA Negative Negative, None Detected Urine 03/21/2025 10:0 9 AM EDT Cristofer Jurado MD POINT OF CARE TEST ENTER/EDIT OR DERABLES Final Result * Bacterial Vaginosis Panel (03/16/2025 10:45 AM EDT) TRICHOMONAS VAGINALIS DETECTION BY PCR NOT DETECTED Not Detect [facility] BACTERIAL VAGINOSIS DETECTION BY PCR NEGATIVE Negative [facility] Comment:The BV organism targ ets of [...] DETECTION BY PCR NOT DETECTED Not Detect [facility] Kenyetta glab krusei PCR NOT DETECTED Not Detect [facility] Swab Vaginal structure / Unknown 03/16/2025 10:45 AM EDT 03/16/2025 5:37 PM EDT Colton Saravia MD LAB MICROBIOLOGY - GENERAL ORDERABLES Final Result [facility] [address] [place] [address] [phone] * Chlamydia/N. Gonorrhoeae RNA, TMA, Urogenitial (03/16/2025 10:45 AM EDT) CT PCR NOT DETECTED Not Detect. [facility] Comment:A not detected test result does [...] psychologicalconsequences. NG PCR NOT DETECTED Not Detect. [facility] Comment:A not detected test result does [...] AM EDT 03/16/2025 5:37 PM EDT Narrative [facility] - 03/17/2025 6:17 AM EDT Vaginal Colton Saravia MD LAB MICROBIOLOGY - GENERAL ORDERABLES Final Result [facility] [address] [place] [address] [phone] * BI Mammogram Screening Tomosynthesis Bilateral (01/12/2025 2:35 PM EST) Anatomical Region Laterality Modality Breast Bilateral Mammography 01/12/2025 2:35 PM EST Narrative 01/20/2025 3:13 PM EST ? [facility] ? [address] ?[place] [address] ? Mammography Report ? Signed ? Patient: Tory Monreal ?MR#: M ?? [id number] ? : 1975 ?Acct:[id number] ? Age/Sex: 49 / F ?ADM Date: 02/20/25 ? Loc: HO.MAMMO ? Attending Dr: Colton Saravia MD ? Ordering Physician: Colton Suarez MD ?Res ?? ults: 2Benign Findings ? Date of Service: 01/12/25 ?Follow Up: 1 Year From Orig ?? inal Mammogram ? Procedure(s): MM tomosynthesis screening BI ?? Accession Number(s): [id number] ? cc: Colton Suarez MD ? EXAMINATION: [...] DD/ 1435 ? TD/TT: 01/12/25 1459 ? Heel Layer: ? Procedure Note Donotuseinterpreter, Image - 01/20/2025 [facility] [address] [place] [address] Dr. Oliveros, JUSTIN [address] Mammography Report Signed Patient: Tory Monreal EMR#: [id number] : 1975Acct:[id number] Age/Sex: 49 / FADM Date: 01/12/25 Loc: HO.MAMMO Attending Dr: Colton Saravia MD Ordering Physician: Colton Suarez ults: 2Benign Findings Date of Service: 01/12/25Follow Up: 1 Year From Orig inal Mammogram Procedure(s): MM tomosynthesis screening BI Accession Number(s): [id number] cc: Colton Suarez MD EXAMINATION: MM SCREENING [...] by: Vanesa Carreno DO 01/20/2025 03:11 PM EST Dictated By: Vanesa Carreno DO Signed By: <Electronically signed by Vanesa Carreno DO in OV> 01/20/25 1511 DD/ 1435 TD/TT: 01/12/25 1459 Heel Layer: Colton Saravia MD IMG BI PROCEDURES Final [...] 3:23 PM EST 12/28/2024 11:21 AM EST Comment:CC Narrative [facility] - 12/29/2024 11:32 AM EST Urine Culture No growth. Specimen Source: Urine clean catch Marcos PAL LAB MICROBIOLOGY - GENERA L ORDERABLES Final Result [facility] [address] [place] [phone] * STI testing add on (NG, CT, Trich) (12/27/2024 3:20 PM EST) Trichomonas (NAAT) Not Detected Not Detected [facility] Comment:Methodology: Transcr iption Mediated Amplification(TMA)The analytical performance characteristics of thisassay have been determined by [facility] [place], [place]. The modificationshave not been cleared or approved by the FDA. Thisassay has been validated pursuant to the CLIAregulations and is used for clinical purposes.For additional information, please refer tohttp://education.HopeLab/faq/Trichomonastma (This link is being providedfor information/educational purposes only).THIS TEST WAS PERFORMED AT:[employer] [id number] [place] [address]YYJKZWDVALERIE ROBB MD,PHD CTNG Ref Lab Not Detected Not Detected [facility] NG Ref Lab Not Detected Not Detected [facility] Comment:Methodology: Transcr iption Mediated Amplification(TMA) to detect RNA.The analytical performance characteristics of thisassay, when used to test [facility] specimens havebeen determined by [employer]. The modificationshave not been cleared or approved by the FDA.This assay has been validated pursuant to the CLIAregulations and is used for clinical purposes.For additional information, please refer totps://education.HopeLab/faq/WCQ321(This link is being provided for information/educational purposes only).THIS TEST WAS PERFORMED AT:[employer] [facility] [place] [address]WQFPAQSVALERIE ROBB MD,PHD ThinPrep?? vial Cervix uteri structure / Unknown 12/27/2024 3:20 PM EST 12/28/2024 9:15 AM EST Narrative [facility] - 01/01/2025 8:03 PM EST Collection Date: [id number] by: GRISEL Pacheco: Cervix us Marcos PAL LAB CYTOLOGY ORDERABLES F inal Result [facility] [address] [place] [address] [phone] * HPV DNA, Low/High Risk (12/27/2024 3:20 PM EST) HPV High Risk Negative Negative [facility] HPV Genotype 16 Negative Negative [facility] HPV Genotype 18 Negative Negative [facility] Comment:HPV testing performe d at [facility] (CLIA#[id number]), [address] [place] [phone].Testing for HPV was performed using the Oswaldo [...] Marcos Hayes CNM LAB BLOOD ORDERABLES Erika larry Result [facility] [address] [place] [phone] * Pap Smear (12/27/2024 3:20 PM EST) Swab Cervix uteri structure / Unknown 12/27/2024 3:20 PM EST 12/28/2024 9:15 AM EST Narrative [facility] - 01/05/2025 10:00 AM EST ----- ------- Name: Tory Monreal ?Age/Sex: 49/F ? : 1975 Unit#: [id number] ?? Attend Dr: MARCOS HAYES CNM ?Re12/27/24 ?Status: DEP REF ? [facility] ? Disch: ? ----- ------- SPEC : [id number] ? RECD: 12/28/24 ? STATUS: ??SOUT ? REQ NUM: [id number] ? SABINE: 12/27/24152 ? SUBM DR: MARCOS HAYES CNM ? [...] END OF REPORT ? us Marcos Hayes [facility] LAB CYTOLOGY ORDERABLES F inal Result Performing Organization Address [facility]/State/ZIP Co de Phone Number [facility] [address] [place] [address] [phone] from Last 3 Months Insurance [id number] Care Teams Screwdown Operator Relationship Specialty Start Date End Date Colton Suarez MD [address] [place] [phone] PCP - General Internal Medicine 03/21/25
--- OUTSIDE RECORDS SUMMARY | 2025-03-21 18:48 | XMS_ITS | Encounter Summary ---
Author Organization [employer] Address [address] [place] [address] Care Team Providers Care Director Inpatient Headache Program Name Role Phone Colton Suarez MD Primary Care Prov ider Encounter Details Date Type Department Care Team (Latest Contact Info) Description 03/21/2025 Travel Social History Tobacco Use Types Packs/Day [...] Info) Description 03/24/2025 9:30 AM EDT Telemedicine [facility] [address] [place] [address] Colton Suarez MD [address] [place] [address] 05/22/2025 3:30 PM EDT Nurse Only [facility] [address] [place] [phone] 05/23/2025 9:00 AM EDT Office Visit [facility] [address] [place] [phone] Jose Dixon MD [address] [place] [address] 06/19/2025 8:30 AM EDT Telemedicine [facility] [address] [place] [phone] Colton Suarez MD [address] [place] [address] documented as of this encounter Visit Diagnoses Not on filedocumented in this encounter Additional Health Concerns Assessment Noted Time PHQ-9 Depression Total Score: 5 10/28/20 24 9:50 AM EST documented as of this encounter Care Teams Director Inpatient Headache Program Relationship Specialty Start Date End Date Colton Suarez MD [address] [place] [phone] PCP - General Internal Medicine 03/21/25 documented as of this encounter
--- OUTSIDE RECORDS SUMMARY | 2025-03-21 18:48 | XMS_ITS | Encounter Summary ---
Author Organization [employer] Address [address] [facility] [address]t [place] [address] Care Team Providers Care Clinical Orthoptist Name Role Phone Colton Suarez MD Primary Care Prov ider Reason for Visit * Reason Comments Back Pain Encounter Details Date Type Department Care Team ([facility] st Contact Info) Description 03/21/2025 9:40 AM EDT Office Visit [facility] [address] [place], [place] [phone] Cristofer Jurado MD [address] [place], [place] [phone] Right-sided low back pain without sciatica, unspecified chronicity (Primary Dx); Acute right-sided thoracic back pain; Dysuria Social History Tobacco Use Types Packs/Day Years [...] 12.8 oz) 03/21/2025 9:01 AM EDT Height - - Body Mass Index 22.64 03/16/2025 9:25 AM EDT documented in this encounter Progress Notes * Cristofer Jurado MD - 03/21/2025 9:40 AM EDT Subjective Patient ID: Tory Saravia is a 49 y.o. female. Human Service Coordinator: Melani OLGUIN Tory was seen at [facility] 5 days ago for dysuria. Vaginal swabs for BV and CT/NG and renal ultrasound were ordered. She was prescribed Macrobid and Flexeril. The office note mentions that urine C&S was sent, but there is no order in Epic and no culture was done. All vaginal swab tests were neg. She came to walk-in clinic today because of 1) persistent burning on urination and 2) pain across lower back that started 1 week ago. days ago, states past h/o LBP. 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 Has not tried any pain meds. Hasn't tried ice or heat. Denies fever, chills, n/v, vaginal discharge, abdominal or flank pain. Bowel or bladder dysfunction, saddle anesthesia, extremity weakness or numbness, or radiation of pain. 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 In Epic, it appears that the meds were sent to [facility] pharmacy on [address] in [place], and she states she was not notified by [facility]. Was seen in walk-in clinic December, for right back pain, Prescribed ibuprofen, acetaminophen, lidocaine patches. Urine C&S then had no growth. Lumbar spine x-ray done December,: IMPRESSION: Minimal degenerative changes of the lower lumbar spine. Lives with daughter. LMP=5 months ago, states due to menopause. Never smoked. 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 Patient Active Problem List Diagnosis Encounter for medical examination to establish care Screening for colon cancer Encounter for screening mammogram for malignant neoplasm of breast Screening for cervical cancer Family history of breast cancer in mother Linda The following portions of the chart were reviewed this encounter and updated as appropriate: Tobacco Allergies Meds Problems Med Hx Surg Hx Fam Hx Review of Systems Constitutional: Negative for fever. Respiratory: Negative for shortness of breath. Cardiovascular: Negative for chest pain. Gastrointestinal: Negative for abdominal pain. Genitourinary: Positive for dysuria. Musculoskeletal: Positive for back pain. Skin: Negative for rash. Neurological: Negative for headaches. Objective Physical Exam Constitutional: Appearance: Normal appearance. HENT: Right Ear: Tympanic membrane, ear canal and external ear normal. Left Ear: Tympanic membrane, ear canal and external ear normal. Nose: Nose normal. Mouth/Throat: Mouth: Mucous membranes are moist. Pharynx: Oropharynx is clear. Eyes: Conjunctiva/sclera: Conjunctivae normal. Pupils: Pupils are equal, round, and reactive to light. Cardiovascular: Rate and Rhythm: Normal rate and regular rhythm. Heart sounds: No murmur heard. Pulmonary: Effort: Pulmonary effort is normal. Breath sounds: Normal breath sounds. Musculoskeletal: General: Normal range of motion. Cervical back: No tenderness. Comments: Tenderness over right back from flank area down to lower lumbar area. Skin: Findings: No rash. Neurological: Mental Status: She is alert. Gait: Gait is intact. Psychiatric: Mood and Affect: Mood normal. Behavior: Behavior normal. Procedures Assessment/Plan Diagnoses and all orders for this visit: Right-sided low back pain without sciatica, unspecified chronicity Refilled acetaminophen, ibuprofen, lidocaine patches, refilled the Flexeril that was ordered at [facility] visit 5 days ago, and sent the meds to [facility] pharmacy at her request. I gave her a work note. Return to clinic if not improving. - POCT urinalysis dipstick manually resulted - Culture, Urine, Routine - acetaminophen (Tylenol) 500 MG tablet; Take 2 tablets (1,000 mg) by mouth every 6 (six) hours if needed for moderate pain or fever for up to 25 doses. Acute right-sided thoracic back pain Urine C&S pending. Prescribed Augmentin in case of right pyelonephritis. Prescribed meds as above. Return to clinic if not improving. Dysuria As above. Return to clinic if not improving Other orders - ibuprofen 400 MG tablet; Take 1 tablet (400 mg) by mouth every 6 (six) hours if needed for moderate pain or fever for up to 30 doses. - amoxicillin-clavulanate (Augmentin) 875-125 MG tablet; Take 1 tablet by mouth 2 times daily for 5days. - lidocaine (Lidoderm) 5 % patch; Apply 1 patch topically Once per day. Remove & discard patch within 12 hours or as directed by MD. - cyclobenzaprine (Flexeril) 10 MG tablet; Take 1 tablet (10 mg) by mouth if needed in the morning,at noon, and at bedtime for muscle spasms. documented in this encounter Plan of Treatment Upcoming Encounters Date Type Department Care Team (Late st Contact Info) Description 03/24/2025 9:30 AM EDT Telemedicine [facility] [address] [place] [address] Colton Suarez MD [address] [place], [place] [phone] 05/22/2025 3:30 PM EDT Nurse Only [facility] [address] [place] [address] 05/23/2025 9:00 AM EDT Office Visit [facility] [address] [place] [address] Jose Dixon MD [address] [place] [address] 06/19/2025 8:30 AM EDT Telemedicine [facility] [address] [place] [address] Colton Suarez MD [address] [place] [address] Scheduled Orders Name Type Priority Associated Diagnoses Orde r Schedule Culture, Urine, Routine Microbiology Routine Right-sided low back pain without sciatica, unspecified chronicity Ordered: 03/21/2025 documented as of this encounter Procedures Procedure Name Priority Date/Time Associated Diagnosis Comments POCT URINALYSIS DIPSTICK Routine 03/21/2025 10:09 AM EDT Right-sided low back pain without sciatica, unspecified chronicity documented in this encounter Results * POCT urinalysis dipstick manually resulted (03/21/2025 10:09 AM EDT) Color, UA Yellow Clarity, UA [...] CARE TEST ENTER/EDIT OR DERABLES Final Result documented in this encounter Visit Diagnoses Diagnosis Right-sided low back pain without sciatica, unspecified chronicity- Primary Acute right-sided thoracic back pain Dysuria documented in this encounter Additional Health Concerns Assessment Noted Time PHQ-9 Depression Total Score: 5 12/06/20 24 9:50 AM EST documented as of this encounter Care Teams Clinical Orthoptist Relationship Specialty Start Date End Date Colton Suarez MD [address] [place] [phone] PCP - General Internal Medicine 03/21/25 documented as of this encounter
== END 2025-03-21 18:00 | disposition home or self-care (01) ==
LOC: HO.HHCLNP 17:59
PROVIDERS: Visit Provider Emergency Medicine
DX: M54.50 Low back pain, unspecified (principal)
CPT/HCPCS: 87086

== ENCOUNTER 2025-03-22 08:48 | Outpatient (REF) | payer OTHER, SELFPAY ==
--- OUTSIDE RECORDS SUMMARY | 2025-03-22 09:12 | XMS_ITS | Encounter Summary ---
Author Organization [employer] Address [address] [facility] 7t [place] [address] Care Team Providers Care Cementing Machine Operator Name Role Phone Colton Suarez MD Primary Care Prov ider Reason for Visit * Reason Comments Back Pain Encounter Details Date Type Department Care Team ([facility] st Contact Info) Description 03/21/2025 9:40 AM EDT Office Visit [facility] [address] [place], [place] [phone] Cristofer Jurado MD [address] [place], [place] [phone] Right-sided low back pain without sciatica, unspecified [...] Tory Saravia is a 49 y.o. female. 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 In Epic, it appears that the meds were sent to [facility] pharmacy on [facility] in [place], and she states she was not notified by [facility]. Was seen in walk-in clinic December, for right back pain, Prescribed ibuprofen, acetaminophen, lidocaine patches. Urine C&S then had no growth. Lumbar spine x-ray done December,: IMPRESSION: Minimal degenerative changes of the lower lumbar spine. Lives with daughter. LMP=5 months ago, states due to menopause. Never smoked. 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 Patient Active Problem List Diagnosis Encounter for [...] refilled the Flexeril that was ordered at [facility] visit 5 days ago, and sent the meds to [facility] pharmacy at her request. I gave [...] Info) Description 03/24/2025 9:30 AM EDT Telemedicine [facility] [address] [place] [address] Colton Suarez MD [address] [place], [place] [phone] 05/22/2025 3:30 PM EDT Nurse Only [facility] [address] [place] [address] 05/23/2025 9:00 AM EDT Office Visit [facility] [address] [place] [address] Jose Dixon MD [address] [place] [address] 06/19/2025 8:30 AM EDT Telemedicine [facility] [address] [place] [address] Colton Suarez MD [address] [place] [address] Scheduled Orders Name Type Priority Associated Diagnoses [...] documented as of this encounter Care Teams Cementing Machine Operator Relationship Specialty Start Date End Date Colton Suarez MD [address] [place] [address] PCP - General Internal Medicine 03/21/25 documented as of this encounter
--- OUTSIDE RECORDS SUMMARY | 2025-03-22 09:12 | XMS_ITS | Encounter Summary ---
Author Organization [employer] Address [address] [facility] [address] 7t [place] [address] Care Team Providers Care Electroplater Automatic Name Role Phone Colton Suarez MD Primary Care Prov ider Encounter Details Date Type Department Care Team (Late st Contact Info) Description 03/21/2025 Orders Only [facility] [address] [place], [place] [phone] Cristofer Jurado MD [address] [place] [address] Social History Tobacco Use Types Packs/Day Years [...] Info) Description 03/24/2025 9:30 AM EDT Telemedicine [facility] [address] [place] [address] Colton Suarez MD [address] [place] [address] 05/22/2025 3:30 PM EDT Nurse Only [facility] [address] [place] [address] 05/23/2025 9:00 AM EDT Office Visit [facility] [address] [place] [address] Jose Dixon MD [address] [place] [address] 06/19/2025 8:30 AM EDT Telemedicine [facility] [address] [place] [address] Colton Suarez MD [address] [place] [address] documented as of this encounter Visit Diagnoses Not on filedocumented in this encounter Additional Health Concerns Assessment Noted Time PHQ-9 Depression Total Score: 5 10/28/20 24 9:50 AM EST documented as of this encounter Care Teams Electroplater Automatic Relationship Specialty Start Date End Date Colton Suarez MD [address] [place] [address] PCP - General Internal Medicine 03/21/25 documented as of this encounter
--- OUTSIDE RECORDS SUMMARY | 2025-03-22 09:12 | XMS_ITS | Clinical Summary ---
Author Organization [employer] Address [address] [facility] 7t [place] [address] Care Team Providers Care Job Honer Name Role Phone Colton Suarez MD Primary Care Prov ider Allergies Active Allergy Reactions Criticality Noted Date Comments Diphenhydramine 03/16/2015 Medications metroNIDAZOLE (Metrogel) 1 % gelIndications :Rosacea Apply topically Once per day. 55 g 3 03/07/20 25 026 Active meloxicam (Mobic) 15 MG tablet Take 1 tablet (15 mg) by mouth Once per day. 30 tablet 03/16/20 25 026 Active acetaminophen (Tylenol) 500 MG tabletIndicati ons:Right-side [...] up to 25 doses. 50 tablet 01/25/20 025 Discontinued(Re order (will not trigger notification [...] Once per day. 55 g 3 03/07/20 025 Discontinued(En tered in error) doxycycline (Vibra-Tabs) [...] order (will not trigger notification to Pharmacy)) nitrofurantoin , macrocrystal-m onohydrate, (Macrobid) 100 MG capsule Take 1 capsule (100 mg) by mouth 2 times daily for 5 days. 10 capsule 03/16/20 25 025 cyclobenzaprin e (Flexeril) 10 MG [...] Description 03/21/2025 9:40 AM EDT Office Visit [facility] [address] [address] Cristofer Jurado MD Right-sided low back pain without sciatica, unspecified chronicity (Primary Dx); Acute right-sided thoracic back pain; Dysuria 03/21/2025 Orders Only [facility] [address] [place] [address] Cristofer Jurado MD 03/21/2025 Travel 03/16/2025 9:30 AM EDT Office Visit [facility] [address] [place] [address] Colton Suarez MD Frequent urination; Vaginal discharge 03/16/2025 Travel 03/07/2025 10:15 AM EDT Office Visit [facility] [address] [place] [address] Jose Dixon MD Rosacea (Primary Dx) 03/07/2025 Travel 02/20/2025 11:00 AM EDT Office Visit [facility] [address] [place] [address] Anup Lomax MD Hordeolum externum of right upper eyelid (Primary Dx) 02/09/2025 Travel 02/07/2025 Telephone [facility] [address] [place] [address] Colton Suarez MD insurance 02/03/2025 Population Health Risk Score [facility] Department [address] [place] [phone] Provider, Population Health Generic 01/24/2025 Orders Only [facility] [address] [place] [address] Colton Suarez MD 01/24/2025 Orders Only [facility] [address] [place] [address] Colton Suarez MD Right-sided low back pain without sciatica, unspecified chronicity 01/24/2025 Telephone [facility] [address] [place] [address] Colton Suarez MD 01/05/2025 Orders Only [address] [address] Marcos Hayes CNM Screening examination for venereal disease (Primary Dx) 01/05/2025 Telephone [facility] [address] [place] [address] Dawn Geronimo, RN Results 01/03/2025 9:30 AM EST Office Visit [facility] [address] [place], [place] [phone] Colton Suarez MD Annual physical exam (Primary Dx); Rosacea; Dysuria; Encounter for immunization 01/03/2025 Travel 12/27/2024 2:45 PM EST Procedure Visit [facility] [address] [place] [address] Marcos Hayes CNM Cervical cancer screening (Primary Dx); Screening examination for venereal disease; Candidiasis of vulva and vagina; Urinary symptom or sign; Family history of breast cancer in mother 12/27/2024 Patient Outreach [facility] [address] [place] [address] Colton Suarez MD Pre-visit Planning ([facility] unable to reach [facility] ) 12/27/2024 Travel from Last 3 Months [...] Info) Description 03/24/2025 9:30 AM EDT Telemedicine [facility] [address] [place] [address] Colton Suarez MD [address] [place] [address] 05/22/2025 3:30 PM EDT Nurse Only [facility] [address] [place], [place] [phone] 05/23/2025 9:00 AM EDT Office Visit [facility] [address] [place] [address] Jose Dixon MD [address] [place] [address] 06/19/2025 8:30 AM EDT Telemedicine [facility] [address] [place] [address] Colton Suarez MD [address] [place] [address] Health Maintenance Due Date Last Done Comments [...] 2) 05/09/2025 03/14/2025 Depression Screening 10/28/2025 10/28/2024, 12/06/20 24 Alcohol/Substance Use Screening 01/03/2026 01/03/2025 SDOH [...] DETECTION BY PCR NOT DETECTED Not Detect [facility] BACTERIAL VAGINOSIS DETECTION BY PCR NEGATIVE Negative [facility] Comment:The BV organism targ ets of [...] DETECTION BY PCR NOT DETECTED Not Detect [facility] Kenyetta glab krusei PCR NOT DETECTED Not Detect [facility] Swab Vaginal structure / Unknown 03/16/2025 10:45 AM EDT 03/16/2025 5:37 PM EDT Colton Saravia MD LAB MICROBIOLOGY - GENERAL ORDERABLES Final Result [facility] [address] [place] [address] [phone] * Chlamydia/N. Gonorrhoeae RNA, TMA, Urogenitial (03/16/2025 10:45 AM EDT) CT PCR NOT DETECTED Not Detect. [facility] Comment:A not detected test result does [...] psychologicalconsequences. NG PCR NOT DETECTED Not Detect. [facility] Comment:A not detected test result does [...] AM EDT 03/16/2025 5:37 PM EDT Narrative [facility] - 03/17/2025 6:17 AM EDT Vaginal Colton Saravia MD LAB MICROBIOLOGY - GENERAL ORDERABLES Final Result [facility] [address] [place] [address] [phone] * BI Mammogram Screening Tomosynthesis Bilateral (01/12/2025 2:35 PM EST) Anatomical Region Laterality Modality Breast Bilateral Mammography 01/12/2025 2:35 PM EST Narrative 01/20/2025 3:13 PM EST ? [facility] ? [address] ?[place] [address] ? Mammography Report ? Signed ? Patient: Tory Monreal ?MR#: M ?? [id number] ? : 1975 ?Acct:[id number] ? Age/Sex: 49 / F ?ADM Date: 02/20/25 ? Loc: HO.MAMMO ? Attending Dr: Colton Saravia MD ? Ordering Physician: Colton Suarez MD ?Res ?? ults: 2Benign Findings ? Date of Service: 01/12/25 ?Follow Up: 1 Year From Orig ?? inal Mammogram ? Procedure(s): MM tomosynthesis screening BI ?? Accession Number(s): [id number] ? cc: Colton Suarez MD ? EXAMINATION: [...] DD/ 1435 ? TD/TT: 01/12/25 1459 ? Pants Closer: ? Procedure Note Donotuseinterpreter, Image - 01/20/2025 [facility] [address] [place] [address] [place] [address] Mammography Report Signed Patient: Tory Monreal EMR#: [id number] : 1975Acct:[id number] Age/Sex: 49 / FADM Date: 01/12/25 Loc: HO.MAMMO Attending Dr: Colton Saravia MD Ordering Physician: Colton Suarez ults: 2Benign Findings Date of Service: 01/12/25Follow Up: 1 Year From Orig inal Mammogram Procedure(s): MM tomosynthesis screening BI Accession Number(s): [id number] cc: Colton Suarez MD EXAMINATION: MM SCREENING [...] 01/20/25 1511 DD/ 1435 TD/TT: 01/12/25 1459 Pants Closer: Colton Saravia MD IMG BI PROCEDURES Final [...] 3:23 PM EST 12/28/2024 11:21 AM EST Comment:[facility] Narrative [facility] - 12/29/2024 11:32 AM EST Urine Culture No growth. Specimen Source: Urine clean catch Marcos Hayes CNM LAB MICROBIOLOGY - GENERA L ORDERABLES Final Result [facility] [address] [place] [address] [phone] * STI testing add on (NG, CT, Trich) (12/27/2024 3:20 PM EST) Trichomonas (NAAT) Not Detected Not Detected [facility] Comment:Methodology: Transcr iption Mediated Amplification(TMA)The analytical performance characteristics of thisassay have been determined by [facility], [place], [place]. The modificationshave not been cleared or approved by the FDA. Thisassay has been validated pursuant to the CLIAregulations and is used for clinical purposes.For additional information, please refer tohttp://education.Unfold/faq/Trichomonastma (This link is being providedfor information/educational purposes only).THIS TEST WAS PERFORMED AT:[employer] [facility] [place] [address]CEDROJGVALERIE ROBB MD,PHD CTNG Ref Lab Not Detected Not Detected [facility] NG Ref Lab Not Detected Not Detected [facility] Comment:Methodology: Transcr iption Mediated Amplification(TMA) to detect RNA.The analytical performance characteristics of thisassay, when used to test [facility] specimens havebeen determined by [facility]. The modificationshave not been cleared or approved by the FDA.This assay has been validated pursuant to the CLIAregulations and is used for clinical purposes.For additional information, please refer tohttps://Seguricel.Unfold/faq/TMR726(This link is being provided for information/educational purposes only).THIS TEST WAS PERFORMED AT:[employer] [place] [address]MONMUGMVALERIE ROBB MD,PHD ThinPrep?? vial Cervix uteri structure / Unknown 12/27/2024 3:20 PM EST 12/28/2024 9:15 AM EST Narrative [facility] - 01/01/2025 8:03 PM EST Collection Date: [id number] by: GRISEL Pacheco: Cervix us Marcos Hayes [facility] CYTOLOGY ORDERABLES F inal Result [facility] [address] [place] [phone] * HPV DNA, Low/High Risk (12/27/2024 3:20 PM EST) HPV High Risk Negative Negative [facility] HPV Genotype 16 Negative Negative [facility] HPV Genotype 18 Negative Negative [facility] Comment:HPV testing performe d at [facility] (CLIA#[id number]), [address] [place] [phone].Testing for HPV was performed using the Oswaldo [...] CNM LAB BLOOD ORDERABLES Erika larry Result [facility] [address] [place] [phone] * Pap Smear (12/27/2024 3:20 PM EST) Swab Cervix uteri structure / Unknown 12/27/2024 3:20 PM EST 12/28/2024 9:15 AM EST Narrative [facility] - 01/05/2025 10:00 AM EST ----- ------- Name: Tory Monreal ?Age/Sex: 49/F ? : 1975 Unit#: [id number] ?? Attend Dr: MARCOS HAYES CNM ?Re12/27/24 ?Status: DEP REF ? [facility] ? Disch: ? ----- ------- SPEC : [id number] ? RECD: 12/28/24 ? STATUS: ??SOUT ? REQ NUM: [id number] ? SABINE: 12/27/24152 ? SUBM DR: MARCOS [...] END OF REPORT ? us Marcos Hayes [facility] CYTOLOGY ORDERABLES F inal Result Performing Organization Address [facility]/State/ZIP Co de Phone Number [facility] [address] [place] [address] [phone] from Last 3 Months Insurance [id number] Care Teams Job Honer Relationship Specialty Start Date End Date Colton Suarez MD [address] [place] [address] PCP - General Internal Medicine 03/21/25
--- OUTSIDE RECORDS SUMMARY | 2025-03-22 09:12 | XMS_ITS | Encounter Summary ---
Author Organization [employer] Address [address] [facility] 7t [place] [address] Care Team Providers Care Pig Machine Operator Name Role Phone Lexi Chavarria [facility] Primary Care Provider [phone] Colton Suarez MD Primary Care Prov ider Colton Suarez MD Primary Care Prov ider Encounter Details Date Type Department Care Team (Late Contact Info) Description 06/23/[address] [facility] [address] [place], [place] [phone] [facility] [address] [place] [address] Social History Tobacco Use Types Packs/Day Years [...] Info) Description 03/24/2025 9:[address] [facility] [address] [place] [address] Colton Suarez MD [address] [place] [address] 05/22/2025 3:30 PM EDT Nurse Only [facility] [address] [place] [address] 05/23/2025 9:00 AM EDT Office Visit [facility] [address] [place] [address] Jose Dixon MD [address] [place] [address] 06/19/2025 8:30 AM EDT Telemedicine [facility] [address] [place] [address] Colton Suarez MD [address] [place] [address] documented as of this encounter Visit Diagnoses Not on filedocumented in this encounter Additional Health Concerns Assessment Noted Time PHQ-9 Depression Total Score: 6 06/23/20 23 11:39 AM EDT documented as of this encounter Care Teams Pig Machine Operator Relationship Specialty Start Date End Date [facility] [address] [place] [address] PCP - General Family Medicine 08/19/21 11/17/23 Colton Suarez MD [address] [place] [address] PCP - General Internal Medicine 11/01/24 03/20/25 Colton Suarez MD [address] [place] [address] PCP - General Internal Medicine 03/21/25 documented as of this encounter
--- OUTSIDE RECORDS SUMMARY | 2025-03-22 09:12 | XMS_ITS | Encounter Summary ---
Author Organization [employer] Address [address] [facility] [address] 7t [place] [address] Care Team Providers Care Senior Network Systems Engineer Name Role Phone Colton Suarez MD [...] Info) Description 03/24/2025 9:30 AM EDT Telemedicine [facility] [address] [place] [address] Colton Suarez MD [address] [place] [address] 05/22/2025 3:30 PM EDT Nurse Only [facility] [address] [place] [address] 05/23/2025 9:00 AM EDT Office Visit [facility] [address] [place] [phone] Jose Dixon MD [address] [place] [address] 06/19/2025 8:30 AM EDT Telemedicine [facility] [address] [place] [address] Colton Suarez MD [address] [place] [address] documented as of this encounter Visit Diagnoses Not on filedocumented in this encounter Additional Health Concerns Assessment Noted Time PHQ-9 Depression Total Score: 5 10/28/20 24 9:50 AM EST documented as of this encounter Care Teams Senior Network Systems Engineer Relationship Specialty Start Date End Date Colton Suarez MD [address] [place] [address] PCP - General Internal Medicine 03/21/25 documented as of this encounter
[2025-03-22 14:19] LABS: MANUAL DIFF FLAG NO
[2025-03-22 14:26] LABS: Eosinophils Absolute Auto 0.2 X10*3/uL (0.0-0.4); Eosinophils Percent Auto 4.4 % (0-4); Hematocrit 36.8 % (37.0-47.0); Imm Gran Abs Auto 0.01 X10*3/uL (0.00-0.03); Imm Gran Pct Auto 0.2 % (0.0-0.4); Lymphocytes Absolute Auto 1.4 X10*3/uL (1.2-4.9); Lymphocytes Percent Auto 34.2 % (20-40); Mean Corpuscular HGB Conc 32.6 g/dl (31.0-35.0); Mean Corpuscular Hemoglobin 30.4 pg (27.0-33.0); Mean Corpuscular Volume 93.2 fL (80.0-98.0); Mean Platelet Volume 9.3 fL (9.4-12.3); Monocytes Absolute Auto 0.5 X10*3/uL (0.1-1.2); Monocytes Percent Auto 12.1 % (2-11); Neutrophils Percent Auto 48.1 % (45-73); Platelet Count 229 X10*3/uL (160-400); Red Blood Count 3.95 X10*6/uL (4.20-5.50); Red Cell Distribution Width 12.9 % (11.0-16.0); White Blood Count 4.1 X10*3/uL (4.8-10.8)
[2025-03-22 14:34] LABS: Estimated Average Glucose 117 mg/dL; Hemoglobin A1C 124.0373 umol/L; Hemoglobin A1c % 5.7 % (<6.0); Total Hemoglobin (HGBA1C) 3160.8592 umol/L
[2025-03-22 14:47] LABS: Alanine Aminotransferase 21 U/L (0-31); Albumin Level 3.7 g/dL (3.5-5.0); Alkaline Phosphatase 89 U/L (39-117); Anion Gap 7 (12-20); Aspartate Amino Transferase 33 U/L (5-31); Bilirubin Total 0.3 mg/dL (0.0-1.0); Blood Urea Nitrogen 10 mg/dL (9-16); Calcium 9.6 mg/dL (8.4-10.2); Carbon Dioxide 29 mmol/L (22-29); Chloride 107 mmol/L (96-108); Cholesterol 154 mg/dL (<200); Estimated Glomerular Filt Rate > 60; Glucose Random 82 mg/dL (60-115); HDL Cholesterol 51 mg/dL (>40); LDL Cholesterol Calculated 85 mg/dL (<100); Potassium 3.9 mmol/L (3.3-5.1); Sodium 139 mmol/L (135-145); Triglycerides 90 mg/dL (<150)
[2025-03-22 15:05] LABS: TSH reflex Free T4 1.56 uIU/mL (0.32-4.0)
[2025-03-23 08:02] LABS: Syphilis Screen Nonreactive (Nonreactive)
[2025-03-23 08:31] LABS: HIV AB/AG Nonreactive (Nonreactive); HIV Num 1 0.08 S/CO (0.00-0.99); ~HepC Num1 0.09 S/CO (0.00-0.79); ~Hepatitis C Antibody Nonreactive (Nonreactive)
== END 2025-03-22 08:49 | disposition home or self-care (01) ==
LOC: HO.CHCLDS 08:48
PROVIDERS: Advanced Practice Midwife; Visit Provider Internal Medicine
DX: Z00.00 Encounter for general adult medical examination without abnormal findings (principal); Z11.3 Encounter for screening for infections with a predominantly sexual mode of transmission
CPT/HCPCS: 36415; 80053; 80061; 83036; 84443; 85025; 86780; 86803; 87389

== ENCOUNTER 2025-04-12 14:13 | Outpatient (AMB) | payer OTHER, SELFPAY ==
[2025-04-12 14:21] VITALS: BP 106/50; PULSE 78; O2SAT 98; BMI 24.4
--- NOTE | 2025-04-12 14:21 | MHC.OFFVIS ---
Vital Signs 04/12/25 14:21 Height 5 ft Weight 125 lb BMI 24.4 BP 106/50 L Blood Pressure Location Rt brachial Position Sitting Pulse 78 Pulse Source Pulse Oximeter Pulse Oximetry (%) 98 Oxygen Delivery Method Room Air Intake Visit Reasons: colo screening Intake Note: NEW PATIENT for initial colo screening. CC; Pt denies any GI sx or concerns at this time. No pertinent FMHx. 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 female here today for pre colonoscopy screening.? Patient was sent to us by her PCP.? This is her first colonoscopy screening.? Patient denies any gastrointestinal symptoms in the past or at present.? Denies any personal or family history of gastrointestinal disease, colon polyps, or CRC.? Denies history of difficulty with sedation or anesthesia in the past.? Negative for history of sleep apnea.? Denies any history of cardiac, renal, pulmonary, or hepatic disease.?? No history of infectious? diseases like hepatitis A, B, C, HIV or tuberculosis.? Patient is not on any anticoagulation PFSH Surgical History History of bilateral tubal ligation Family History Mother Breast cancer Social History Alcohol intake: current Alcohol intake frequency: holidays/special occasions only Patient Tobacco Use Status: Never used Tobacco Gender identity: Female Female Reproductive History Menstrual Age of Menarche: 10 Review of Systems Const Denies weight gain and Denies weight loss ENT Reports no additional complaints, Denies dysphagia and Denies odynophagia Card Reports no additional complaints Resp Reports no additional complaints GI Denies abdominal pain, Denies belching, Denies melena, Denies bloating, Denies change in bowel habits, Denies dysphagia, Denies excessive flatus, Denies dyspepsia, Denies heartburn, Denies diarrhea, Denies loose stools, Denies nausea, Denies odynophagia and Denies vomiting Musc Reports no additional complaints Neuro Reports no additional complaints Psych Reports no additional complaints Endo Reports no additional complaints Physical Exam Vital Signs: Last Vital Signs Pulse 78 04/12/25 14:21 BP 106/50 L 04/12/25 14:21 Pulse Ox 98 04/12/25 14:21 Oxygen Delivery Method Room Air 04/12/25 14:21 BMI result Body Mass Index 24.4 Const General: healthy appearing, no acute distress and well developed Nutritional Appearance: well nourished Orientation/consciousness: patient oriented x3 Resp Effort & Inspection: normal respiratory effort, able to speak in complete sentences, no tracheal deviation and symmetric chest movement Auscultation: clear to auscultation bilaterally Cardio Rate: regular rate GI Inspection: Yes normal to inspection and No distended Palpation (GI): Soft to palpation, not firm, nontender and No hepatosplenomegaly present Auscultation: normal bowel sounds General: Yes no CVA tenderness Back/Spine/Pelvis Back: no CVA tenderness Skin General skin exam: elasticity normal, turgor normal and dry skin Neuro General: patient oriented x3 Psych Appearance: grossly normal Mental Status: mental status grossly normal Assessment & Plan Assessment & Plan (1) Screen for colon cancer: Code(s): Z12.11 - Encounter for screening for malignant neoplasm of colon Plan Patient denies any GI, cardiac or respiratory symptoms.? Denies any issues with anesthesia in the past.? Denies any history of sleep apnea.? No history infectious diseases in the past or present.? Not on any anticoagulation therapy.? No family or personal history of colon cancer or polyps.? Patient denies melena, hematochezia, unintentional weight loss or ribbon like stools.? Discussed at length the pre-procedure,? prep, diet & medications as well as what to expect prior, during and after the procedure.?? Stressed the importance of good bowel prep.? Recommended the use of Vaseline or Calmoseptine OTC & baby wipes with bowel movements to promote comfort.? ?Patient verbalizes understanding and agrees to plan of care.? She was given the opportunity to ask questions and all questions answered.? We will see her after the procedure.? Medications: New polyethylene glycol 3350 (Miralax) As directed by gastroenterology department at [facility] 238 grams PO ONCE 238 grams 0RF Z12.11 - Encounter for screening for malignant neoplasm of colon bisacodyl (Dulcolax (bisacodyl)) take 4 tabs at noon the day before your colonoscopy 20 mg (4 x 5 mg) PO ONCE 4 tabs 0RF 1 day Z12.11 - Encounter for screening for malignant neoplasm of colon Coding Level of Care Code New Pt Level 3 (37965) Diagnoses Screen for colon cancer Z12.11 Time Spent (min) 40 Comment 30 minutes spent with patient and additional 10 minutes spent reviewing her records
--- OUTSIDE RECORDS SUMMARY | 2025-04-12 14:36 | XMS_ITS | Clinical Summary ---
Author Organization [employer] Address [address] [place] [address] [address] [place] [address] Care Team Providers Care Piece Dyer Name Role Phone Colton Suarez MD Primary Care Prov ider Allergies Active Allergy Reactions Criticality Noted Date Comments Diphenhydramine 03/16/2015 Medications metroNIDAZOLE (Metrogel) 1 % gelIndications: Rosacea Apply topically Once per day. 55 g 3 03/07/20 25 026 Active meloxicam (Mobic) 15 MG tablet Take 1 tablet (15 mg) by mouth Once per day. 30 tablet 03/16/20 25 026 Active acetaminophen (Tylenol) 500 MG tabletIndicatio ns:Right-sided low [...] 30 doses. 30 tablet 03/21/20 25 Active lidocaine (Lidoderm) 5 % patch Apply 1 patch topically Once per day. Remove & discard patch within 12 hours or as directed by MD. 30 patch 2 03/21/20 25 026 Active cyclobenzaprine (Flexeril) 10 MG tablet Take 1 tablet (10 mg) by mouth if needed in the morning, at noon, and at bedtime for muscle spasms. 20 tablet 03/21/20 25 Active acetaminophen (Tylenol) 500 MG tabletIndicatio ns:Right-sided low back pain without sciatica, unspecified chronicity Take 2 tablets (1,000 mg) by mouth every 6 (six) hours if needed for moderate pain or fever for up to 25 doses. 50 tablet 01/25/20 25 025 Discontinued(Re order (will not trigger notification to Pharmacy)) cyclobenzaprine (Flexeril) 10 MG tablet Take 1 tablet (10 mg) by mouth 3 times daily for 10 days. 30 tablet 01/25/20 25 025 Discontinued(Re order (will not trigger notification to Pharmacy)) doxycycline (Vibra-Tabs) 100 MG tabletIndicatio ns:Rosacea Take 1 tablet (100 mg) by mouth 2 times daily for 10 days. Take with a full glass of water and do not lie down for at least 30 minutes after. 20 tablet 03/07/20 25 025 cyclobenzaprine (Flexeril) 10 MG tablet Take 1 tablet (10 mg) by mouth 3 times daily for 10 days. 30 tablet 03/16/20 25 025 Discontinued(Re order (will not trigger notification to Pharmacy)) nitrofurantoin, macrocrystal-mo nohydrate, (Macrobid) 100 MG capsule Take 1 capsule (100 mg) by mouth 2 times daily for 5 days. 10 capsule 03/16/20 25 025 amoxicillin-cla vulanate (Augmentin) 875-125 MG tablet Take 1 tablet by mouth 2 times daily for 5 days. 10 tablet 03/21/20 25 025 cyclobenzaprine (Flexeril) 10 MG tablet Take 1 tablet (10 mg) by mouth if needed in the morning, at noon, and at bedtime for muscle spasms. 3020 tablet 03/21/20 25 025 Discontinued(Re order (will not trigger notification to Pharmacy)) Active Problems Problem Noted Date Diagnosed Date Chronic bilateral low back pain without sciatica 03/24/2025 Assessment & Plan (03/24/2025 9:44 AM EDT): Continue tylenol/ibuprofen as needed, apply cold pads, apply menthol based creams, willl refer to PT, follow up in 2 months, letter for work will be provided Linda 01/03/2025 Assessment & Plan (01/03/2025 10:33 AM [...] Encounters Date Type Department Care Team Description 03/24/2025 9:30 AM EDT Telemedicine [facility] [address] [place] [address] Colton Suarez MD Chronic bilateral low back pain without sciatica (Primary Dx) 03/24/2025 Telephone [facility] [address] [place] [address] Colton Suarez MD 03/24/2025 Telephone [facility] [address] [place], [place] [phone] Cassia Bay RN Results 03/24/2025 Travel 03/23/2025 Telephone [facility] [address] [place] [phone] Cassia Bay, GABRIELLE Results 03/21/2025 9:40 AM EDT [facility] [address] [address] Cristofer Jurado MD Right-sided low back pain without sciatica, unspecified chronicity (Primary Dx); Acute right-sided thoracic back pain; Dysuria 03/21/2025 Orders Only [facility] [address] [address] Cristofer Jurado MD 03/21/2025 Travel 03/16/2025 9:30 AM EDT Office Visit [facility] [address] [place] [address] Colton Suarez MD Frequent urination; Vaginal discharge 03/16/2025 Travel 03/07/2025 10:15 AM EDT Office Visit [facility] [address] [place] [address] Jose Dixon MD Rosacea (Primary Dx) 03/07/2025 Travel 02/20/2025 11:00 AM EDT [facility] [address] [address] Name, MD Anup Hordeolum externum of right upper eyelid (Primary Dx) 02/09/2025 Travel 02/07/2025 Telephone [facility] [address] [place] [address] Colton Suarez MD insurance 02/03/2025 Population Health Risk Score [facility] [address] [place] [phone] Provider, Population Health Generic 01/24/2025 Orders Only [facility] [address] [place] [address] Colton Suarez MD 01/24/2025 Orders Only [facility] [address] [place] [address] Colton Suarez MD Right-sided low back pain without sciatica, unspecified chronicity 01/24/2025 Telephone [facility] [address] [place] [address] Colton Suarez MD from Last 3 Months Immunizations Immunization Administration Dates Next Due Hep B, Adolescent [...] is your housing situation today? I have ferminreena umanzor 01/03/[address] you [...] Description 05/22/2025 3:30 PM EDT Nurse Only [facility] [address] [place] [phone] 05/23/2025 9:00 AM EDT Office Visit [facility] [address] [place] [address] Jose Dixon MD [address] [place] [address] 06/19/2025 8:30 AM EDT Telemedicine [facility] [address] [place] [address] Colton Suarez MD [address] [place] [address] Health Maintenance Due Date Last Done Comments CT Colonography 1975 Colonoscopy 1975 Colorectal Cancer Screening 1975 FIT DNA/Cologuard 1975 FIT 1975 FOBT 1975 Sigmoidoscopy 1975 Disability Screening 1975 Family Planning (PISQ) 1988 Hepatitis B Vaccines (1 of 3 - 19+ 3-dose series) 1992 07/15/2011, 09/27/2010, 09/10/2009 Pneumococcal Vaccine: 50+ Years (1 of 1 - PCV) 2023 COVID-19 Vaccine (1 - 2023- season) 2024 Influenza Vaccine (#1) 2024 08/26/2012, 2010 Zoster Vaccines (2 of 2) 05/09/2025 03/14/2025 Depression Screening 10/28/2025 10/28/2024, 10/28/20 Alcohol/Substance Use Screening 01/03/2026 01/03/2025 SDOH Screening 01/03/2026 01/03/2025 Tobacco Screening 03/21/2026 03/21/2025 Diabetes: Hemoglobin A1C 03/22/2026 03/22/2025 Mammogram 01/12/2027 01/12/2025, 0206/2024, 08/23/2021, Additional history exists Cervical Cancer Screening 12/27/2029 HPV/Cotest 12/27/2029 12/27/2024 Pap Smear 12/27/2029 12/27/2024 DTaP/Tdap/Td Vaccines (3 - Td or Tdap) 01/03/2035 01/03/2025, 08/26/2012 RSV Patients and Patients Aged 60 years or older (1 - 1-dose 75+ series) 2048 HIV Screening Completed 03/22/2025 Hepatitis C Screening Completed 03/22/2025 HIB Vaccines Aged Out No longer eligi [...] patient's age to complete this topic Meningococcal B Vaccine Aged Out No l onger eligible based on patient's age to complete [...] Procedure Name Priority Date/Time Associated Diagnosis Comments HEMOGLOBIN A1C Routine 03/22/2025 8:54 AM EDT Annual physical exam CBC WITH AUTO DIFFERENTIAL Routine 03/22/2025 8:54 AM EDT Annual physical exam SYPHILIS SCREEN Routine 03/22/2025 8:51 AM EDT Screening examination for venereal disease HEPATITIS C AB W/REFL TO HCV RNA, QN, PCR Routine 03/22/2025 8:51 AM EDT Annual physical exam HIV 1/2 ANTIGEN/ANTIBODY, FOURTH GENERATION W/RFL Routine 03/22/2025 8:51 AM EDT Annual physical exam TSH W/REFLEX TO FT4 Routine 03/22/2025 8 :51 AM EDT Annual physical exam LIPID PANEL, STANDARD Routine 03/22/2025 8:51 AM EDT Annual physical exam COMPREHENSIVE METABOLIC PANEL Routine 03/22/2025 8:51 AM EDT Annual physical exam CULTURE, URINE, ROUTINE Routine 03/21/2025 10:10 AM EDT Right-sided low back pain without sciatica, unspecified chronicity POCT URINALYSIS DIPSTICK Routine 03/21/2025 10:09 AM [...] screening mammogram for malignant neoplasm of breast HPV DNA, LOW/HIGH RISK Routine 3:20 PM EST PAP SMEAR Routine 12/27/2024 3:20 PM EST Cervical cancer screening from Last 3 Months or Most Recently Relevant to Health Maintenance Results * (ABNORMAL) CBC auto differential (03/22/2025 8:54 AM EDT) White Blood Count 4.1(L) 4.8 - 10.8 X10*3/uL [facility] Red Blood Count 3.95(L) 4.20 - 5.50 X10*6/uL [facility] Hemoglobin 12.0 12.0 - 16.0 g/dl [facility] Hematocrit 36.8(L) 37.0 - 47.0 % [facility] Mean Corpuscular Volume 93.2 80.0 - 98.0 fL [facility] Mean Corpuscular Hemoglobin 30.4 27.0 - 33.0 pg [facility] Mean Corpuscular HGB Conc 32.6 31.0 - 35.0 g/dl [facility] Red Cell Distribution Width 12.9 11.0 - 16.0 % [facility] Platelet Count 229 160 - 400 X10*3/uL [facility] Mean Platelet Volume 9.3(L) 9.4 - 12.3 fL [facility] Neutrophils Percent Auto 48.1 45 - 73 % [facility] Imm Gran Pct Auto 0.2 0.0 - 0.4 % [facility] Lymphocytes Percent Auto 34.2 20 - 40 % [facility] Monocytes Percent Auto 12.1(H) 2 - 11 % [facility] Eosinophils Percent Auto 4.4(H) 0 - 4 % [facility] Basophils Percent Auto 1.0 0 - 2 % [facility] NRBC Pct Auto 0.0 0.0 - 0.2 /100WBC [facility] Neutrophils Absolute Auto 2.0 2.0 - 8.3 x10*3/uL [facility] Imm Gran Abs Auto 0.01 0.00 - 0.03 X10*3/uL [facility] Lymphocytes Absolute Auto 1.4 1.2 - 4.9 X10*3/uL [facility] Monocytes Absolute Auto 0.5 0.1 - 1.2 X10*3/uL [facility] Eosinophils Absolute Auto 0.2 0.0 - 0.4 X10*3/uL [facility] Basophils Absolute Auto 0.0 0.0 - 0.2 X10*3/uL [facility] NRBC Abs Auto 0.000 0.0 - 0.012 X10*3/uL [facility] Blood Venous blood specimen / Unknown 03/22/2025 8:54 AM EDT 03/22/2025 2:15 PM EDT Colton Saravia MD LAB BLOOD ORDERABL ES Final Result [facility] [address] [place] [phone] * Hemoglobin A1c (03/22/2025 8:54 AM EDT) Hemoglobin A1c 5.7 <6.0 % [facility] Comment:Hemoglobin A1C Refer ence Range Adults: 4.8 - 6.0 % Non diabetic: < 6.0 % Goal: < 7.0 %Additional Action Suggested: > 8.0 %Note: Hemoglobin A1c results are invalid for patients with abnormal amounts of HbF. Blood transfusions may impact the HbA1c concentration in the patient sample. Estimated Average Glucose 117 mg/dL [facility] Comment:eAG = Estimated ave rage glucose which is %A1C expressed asaverage glucose, using the formula of the Z4V-FzifmpnSrtbbam Glucose study (ADAG), Diabetes Care, Vol.31,#8,Jun. 2007 Blood Venous blood specimen / Unknown 03/22/2025 8:54 AM EDT 03/22/2025 2:15 PM EDT Colton Saravia MD LAB BLOOD ORDERABL ES Final Result Performing Organization Address [facility] [place] [facility] Co de Phone Number [facility] [address] [place] [phone] * Syphilis Screen (03/22/2025 8:51 AM EDT) Syphilis Screen Nonreactive Nonreactive [facility] Blood Venous blood specimen / Unknown 03/22/2025 8:51 AM EDT 03/22/2025 2:15 PM EDT us Marcos PAL LAB BLOOD ORDERABLES Erika l Result Performing Organization Address [facility] [place] [facility] de Phone Number [facility] [address] [place] [phone] * TSH W/Reflex to FT4 (03/22/2025 8:51 AM EDT) TSH reflex Free T4 1.56 0.32 - 4.0 uIU/mL [facility] Blood Venous blood specimen / Unknown 03/22/2025 8:51 AM EDT 03/22/2025 2:15 PM EDT Colton Saravia MD LAB BLOOD ORDERABL ES Final Result Performing Organization Address [facility] [place] [facility] Co de Phone Number [facility] [address] [place] [phone] * Hepatitis C Antibody with Reflex to HCV, RNA, Quantitative, Real-Time PCR (03/22/2025 8:51 AM EDT) [facility] Hepatitis C Antibody Nonreactive Nonreactive [facility] Comment:Antibodies to HCV no t detected; does not exclude early acuteHCV infection. Blood Venous blood specimen / Unknown 03/22/2025 8:51 AM EDT 03/22/2025 2:15 PM EDT Colton Saravia MD LAB BLOOD ORDERABL ES Final Result Performing Organization Address [facility] [place] [facility] Co de Phone Number [facility] [address] [place] [phone] * HIV-1/2 Antigen and Antibodies, Fourth Generation, with Reflexes (03/22/2025 8:51 AM EDT) [facility] HIV AB/AG Nonreactive Nonreactive [facility] Comment:HIV-1 p24 Ag and/or HIV-1/HIV-2 Ab not detected.A test result that is nonreactive does not exclude thepossibility of exposure to or infection with HIV-1 and/orHIV-2. Nonreactive results in this assay for individualswith prior exposure to HIV-1 and/or HIV-2 may be due toantigen and antibody levels that are below the limit ofdetection of this assay.The [facility] HIV Ag/Ab Combo assay result andsupplemental assay results should be interpreted inconjunction with the patient's clinical presentation,history and other laboratory results. If the results areinconsistent with clinical evidence, additional testing issuggested to confirm the result. Blood Venous blood specimen / Unknown 03/22/2025 8:51 AM EDT 03/22/2025 2:15 PM EDT Colton Saravia MD LAB BLOOD ORDERABL ES Final Result Performing Organization Address [facility] [place] [facility] Co de Phone Number [facility] [address] [place] [phone] * Lipid Panel, Standard (03/22/2025 8:51 AM EDT) [facility] Triglycerides 90 <150 mg/dL [facility] Comment:Desirable Triglyceri de: less than 150 mg/dLBorderline High Triglyceride 150-199 mg/dLHigh Triglyceride: 200-499 mg/dLVery High Triglyceride: greater than or equal to 5OO mg/dL Cholesterol 154 <200 mg/dL [facility] Comment:Desirable Cholestero l: less than 200 mg/dLBorderline High Cholesterol: 200-239 mg/dLHigh Cholesterol: greater than 239 mg/dL LDL Cholesterol Calculated 85 <100 mg/dL [facility] Comment:Desirable LDL: less than 100 mg/dLNear Optimal/Above Optimal LDL: 110- 129 mg/dLBorderline High LDL: 130-159 mg/dLHigh LDL: 160-189 mg/dLVery High LDL: greater than or equal to 190 mg/dL HDL Cholesterol 51 >40 mg/dL [facility] Comment:Desirable HDL: great er than 40 mg/dL Note: This HDL assay may give artificially low results in patients with liver disease. Blood Venous blood specimen / Unknown 03/22/2025 8:51 AM EDT 03/22/2025 2:15 PM EDT us Colton Saravia MD LAB BLOOD ORDERABL ES Final Result [facility] [address] [place] [phone] * (ABNORMAL) Comprehensive Metabolic Panel (03/22/2025 8:51 AM EDT) Pathologist [facility] Sodium 139 135 - 145 mmol/L [facility] Potassium 3.9 3.3 - 5.1 mmol/L [facility] Chloride 107 96 - 108 mmol/L [facility] Carbon Dioxide 29 22 - 29 mmol/L [facility] Anion Gap 7(L) 12 - 20 [facility] Urea Nitrogen (BUN) 10 9 - 16 mg/dL [facility] Creatinine, Serum 0.75 0.5 - 1.4 mg/dL [facility] Estimated Glomerular Filt Rate >60 [facility] Comment:Chronic Kidney Disea se: Estimated GFR < 60 mL/min/1.30o0Xpygiv Kidney Disease: Estimated GFR < 15 mL/min/1.73m2 Glucose 82 60 - 115 mg/dL [facility] Calcium 9.6 8.4 - 10.2 mg/dL [facility] Bilirubin, Total 0.3 0.0 - 1.0 mg/dL [facility] Aspartate Amino Transferase 33(H) 5 - 31 U/L [facility] Alanine Aminotransferase 21 0 - 31 U/L [facility] Total Protein 7.0 6.5 - 8.0 g/dL [facility] Albumin Level 3.7 3.5 - 5.0 g/dL [facility] Alkaline Phosphatase 89 39 - 117 U/L [facility] Blood Venous blood specimen / Unknown 03/22/2025 8:51 AM EDT 03/22/2025 2:15 PM EDT Colton Saravia MD LAB BLOOD ORDERABL ES Final Result Performing Organization Address City/[facility]/ZIP Co de Phone Number [facility] [address] [place] [phone] * Culture, Urine, Routine (03/21/2025 10:10 AM EDT) Urine Urine specimen obtained by clean catch procedure / Unknown 03/21/2025 10:10 AM EDT 03/21/2025 5:59 PM EDT Comment:UACC Narrative [facility] - 03/23/2025 11:32 AM EDT Urine Culture No growth. Specimen Source: Urine clean catch Cristofer Jurado MD LAB MICROBIOLOGY - GENERAL ORDER GORGE Final Result Performing Organization Address [facility] [place] [facility] Co de Phone Number [facility] [address] [place] [address] [phone] * POCT urinalysis dipstick manually resulted (03/21/2025 10:09 AM EDT) Only the most recent of2 resultswithin the time period is included. Pathologist [facility] Color, UA Yellow Clarity, UA Clear Glucose, [...] Bacterial Vaginosis Panel (03/16/2025 10:45 AM EDT) [facility] TRICHOMONAS VAGINALIS DETECTION BY PCR NOT DETECTED Not Detect [facility] BACTERIAL VAGINOSIS DETECTION BY PCR NEGATIVE Negative [facility] Comment:The BV organism targ ets [...] DETECTION BY PCR NOT DETECTED Not Detect [facility] Kenyetta glab krusei PCR NOT DETECTED Not Detect [facility] Swab Vaginal structure / Unknown 03/16/2025 10:45 AM EDT 03/16/2025 5:37 PM EDT Colton Saravia MD LAB MICROBIOLOGY - GENERAL ORDERABLES Final Result [facility] [address] [place] [phone] * Chlamydia/N. Gonorrhoeae RNA, TMA, Urogenitial (03/16/2025 10:45 AM EDT) [facility] CT PCR NOT DETECTED Not Detect. [facility] Comment:A not detected test result [...] psychologicalconsequences. NG PCR NOT DETECTED Not Detect. [facility] Comment:A not detected test result [...] AM EDT 03/16/2025 5:37 PM EDT Narrative [facility] - 03/17/2025 6:17 AM EDT Vaginal us Colton Saravia MD LAB MICROBIOLOGY - GENERAL ORDERABLES Final Result [facility] [address] [place] [phone] * BI Mammogram Screening Tomosynthesis Bilateral (01/12/2025 2:35 PM EST) Anatomical Region Laterality Modality Breast Bilateral Mammography 01/12/2025 2:35 PM EST Narrative 01/20/2025 3:13 PM EST ? [facility] ? [address] ?[place] [address] ? Mammography Report ? Signed ? Patient: Manjit Leal,Lidia ?MR#: M ?? [id number] ? : 1975 ?Acct:[id number] ? Age/Sex: 49 / F ?ADM Date: 01/12/25 ? Loc: HO.MAMMO ? Attending Dr: Colton Saravia MD ? Ordering Physician: Colton Suarez MD ?Res ?? ults: 2Benign Findings ? Date of Service: 01/12/25 ?Follow Up: 1 Year From Orig ?? inal Mammogram ? Procedure(s): MM tomosynthesis screening BI ?? Accession Number(s): [id number] ? cc: Colton Suarez MD ? EXAMINATION: [...] ??Vanesa Carreno DO ??01/20/2025 03:11 PM EST ? Dictated By: ?Vanesa Carreno DO ? Signed By: ?<Electronically signed by Vanesa Carreno, DO in OV> ? 01/20/25 1511 ? DD/ 1435 ? TD/TT: 01/12/25 1459 ? [facility] Laboratory Chief: ? Procedure Note Donemekabrittniinterpreter, Image - 01/20/2025 [facility] [address] [place] [address] Mammography Report Signed Patient: Tory Monreal EMR#: [id number] : 1975Acct:[id number] Age/Sex: 49 / FADM Date: 01/12/25 Loc: HO.MAMMO Attending Dr: Colton Saravia MD Ordering Physician: Colton Suarez ults: 2Benign Findings Date of Service: 01/12/25Follow Up: 1 Year From Orig inal Mammogram Procedure(s): MM tomosynthesis screening BI Accession Number(s): [id number] cc: Colton Suarez MD EXAMINATION: MM SCREENING [...] 01/20/25 1511 DD/ 1435 TD/TT: 01/12/25 1459 [facility] Chief: Colton Saravia MD IMG BI PROCEDURES Final Result * HPV DNA, Low/High Risk (12/27/2024 3:20 PM EST) HPV High Risk Negative Negative [facility] HPV Genotype 16 Negative Negative [facility] HPV Genotype 18 Negative Negative [facility] Comment:HPV testing performe d at [facility] (IA#[id number]), [address] [place] [address].Testing for HPV was performed using the Oswaldo [...] CNM LAB BLOOD ORDERABLES Erika larry Result [facility] [address] [place] [phone] * Pap Smear (12/27/2024 3:20 PM EST) Swab Cervix uteri structure / Unknown 12/27/2024 3:20 PM EST 12/28/2024 9:15 AM EST Narrative [facility] - 01/05/2025 10:00 AM EST ----- ------- Name: Tory Monreal ?Age/Sex: 49/F ? : 1975 Unit#: [id number] ?? Attend Dr: MARCOS HAYES CNM ?Re12/27/24 ?Status: DEP REF ? Location: HO.HHCLNP ? Disch: ? ----- ------- SPEC : [id number] ? RECD: 12/28/24 ? STATUS: ??SOUT ? REQ NUM: [id number] ? SABINE: 12/27/24-1520 ? SUBM DR: MARCOS HAYES CNM ? [...] END OF REPORT ? us Marcos Hayes [facility] CYTOLOGY ORDERABLES F inal Result [facility] [address] [place] [phone] from Last 3 Months or Most Recently Relevant to Health Maintenance Insurance [facility] Care Teams Piece Dyer Relationship Specialty Start Date End Date Colton Suarez MD [address] [place] [phone] PCP - General Internal Medicine 03/21/25
--- OUTSIDE RECORDS SUMMARY | 2025-04-12 14:36 | XMS_ITS | Encounter Summary ---
Author Organization [employer] Address [address] [facility] 7t [place] [address] Care Team Providers Care Aed Trainer Name Role Phone Lexi Chavarria [facility] Primary Care Provider [phone] Colton Suarez MD Primary Care Prov ider Colton Suarez MD Primary Care Prov ider Encounter Details Date Type Department Care Team (Late st Contact Info) Description 06/23/2023 Abstract [facility] [address] [place], [place] [phone] Lexi Chavarria [facility] [address] [place] [address] Social History Tobacco Use Types Packs/Day Years [...] PM EDT documented as of this encounter Functional Status * Over the past 2 weeks, how often have you been bothered by any of the following problems? Question Answer Date of Assessment Author Patient Health Questionnaire -2 Score 2 06/23/2023 11:39 AM Isiah Guerrero [place] * If you checked off any problems on this questionnaire so far, Question Answer Date of Assessment Author How difficult have these problems made it for you to do your work, take care of things at home, or get along with other people? Somewhat difficult 06/23/2023 11:39 AM Isiah Guerrero [place] * Over the past 2 weeks, how often have you been bothered by any of the following problems? Question Answer Date of Assessment Author Little interest or pleasure in doing things Several days 06/23/2023 11:39 AM Isiah Guerrero MA Feeling down, depressed, or hopeless Several days 06/23/2023 11:39 AM Isiah Guerrero [place] Trouble falling or staying asleep, or sleeping too much Several days 06/23/2023 11:39 AM Isiah Guerrero [place] Feeling tired or having little energy Several days 06/23/2023 11:39 AM Isiah Guerrero [place] Poor appetite or overeating Several days 06/23/2023 11 :39 AM Isiah Guerrero MA Feeling bad about yourself - or that you are a failure or have let yourself or your family down Several days 06/23/2023 11:39 AM Isiah Guerrero MA Trouble concentrating on things, such as reading the newspaper or watching television Not at all 06/23/2023 11:39 AM Isiah Guerrero MA Moving or speaking so slowly that other people could have noticed? Or the opposite - being so fidgety or restless that you have been moving around a lot more than usual. Not at all 06/23/2023 11:39 AM Isiah Guerrero MA Thoughts that you would be better off or hurting yourself in some way Not at all 06/23/2023 11:39 AM Isiah Guerrero MA Patient Health Questionnaire-9 Score 6 06/23/2023 11:39 AM Isiah Guerrero MA documented as of this encounter Plan of Treatment Upcoming Encounters Date Type Department Care Team (Late st Contact Info) Description 05/22/2025 3:30 PM EDT Nurse Only [facility] [address] [place] [address] 05/23/2025 9:00 AM EDT Office Visit [facility] [address] [place] [address] Jose Dixon MD [address] [place] [address] 06/19/2025 8:30 AM EDT Telemedicine [facility] [address] [place] [address] Colton Suarez MD [address] [place] [address] documented as of this encounter Visit Diagnoses Not on filedocumented in this encounter Additional Health Concerns Assessment Noted Time PHQ-9 Depression Total Score: 6 06/23/20 23 11:39 AM EDT documented as of this encounter Care Teams Aed Trainer Relationship Specialty Start Date End Date [place] Lexi [facility] [address] [place] [address] PCP - General Family Medicine 08/19/21 11/17/23 Colton Suarez MD [address] [place] [address] PCP - General Internal Medicine 11/01/24 03/20/25 Colton Suarez MD [address] [place] [address] PCP - General Internal Medicine 03/21/25 documented as of this encounter
== END 2025-04-12 15:35 | disposition home or self-care (01) ==
LOC: HO.HGI 14:15
PROVIDERS: PCP Internal Medicine; Visit Provider Nurse Practitioner Family
DX: Z01.818 Encounter for other preprocedural examination (principal); Z12.11 Encounter for screening for malignant neoplasm of colon
CPT/HCPCS: 99203

== ENCOUNTER → 2025-04-12 14:13 | Outpatient (BNVA) | payer OTHER, SELFPAY | PROVIDERS: PCP Internal Medicine; Visit Provider Nurse Practitioner Family | DX: Z01.818 Encounter for other preprocedural examination (principal) | CPT/HCPCS: 99202 ==

== ENCOUNTER 2025-04-14 15:24 | Outpatient (REF) | payer OTHER, SELFPAY ==
--- NOTE | ~2025-04-14 | US_ITS ---
EXAMINATION: US RETROPERITONEAL LIMITED (RENAL ONLY) CLINICAL INFORMATION: Rule out renal cyst. COMPARISON: None available. TECHNIQUE: Real-time imaging of the kidneys. FINDINGS: RIGHT KIDNEY: 10.4 x 3.8 x 5.4 cm (SAG x AP x TRV). The kidney is normal in size, contour, and echogenicity. Renal cortical thickness is normal. No calculi or focal parenchymal lesions. No hydronephrosis. Minimally complicated midpole cyst with thin septation measuring 1.6 x 1.1 x 1.2 cm. LEFT KIDNEY: 9.2 x 4.8 x 3.4 cm (SAG x AP x TRV). The kidney is normal in size, contour, and echogenicity. Renal cortical thickness is normal. No calculi or focal parenchymal lesions. No hydronephrosis. US/US renal BI IMPRESSION: 1. Minimally complicated right mid pole cyst with thin septation measuring 1.6 cm. This is equivalent to a Bosniak 2 cyst. No follow-up deemed necessary. 2. Otherwise normal examination. Electronically signed by: Benito Pace MD 04/14/2025 03:51 PM EDT
--- OUTSIDE RECORDS SUMMARY | 2025-04-14 15:27 | XMS_ITS | Clinical Summary ---
Author Organization [employer] Address [address] [place] [address] 7t [place] [address] Care Team Providers Care Environmental Services Director Name Role Phone Colton Suarez MD [...] Team Description 03/24/2025 9:30 AM EDT Telemedicine [facility] [address] [place] [address] Colton Suarez MD Chronic bilateral low back pain without sciatica (Primary Dx) 03/24/2025 Telephone [facility] [address] [place] [address] Colton Suarez MD 03/24/2025 Telephone [facility] [address] [place], [place] [phone] Cassia Bay RN Results 03/24/2025 Travel 03/23/2025 Telephone [facility] [address] [place] [phone] Cassia Bay, GABRIELLE Results 03/21/2025 9:40 AM EDT [facility] [address] [address] Cristofer Jurado MD Right-sided low back pain without sciatica, unspecified chronicity (Primary Dx); Acute right-sided thoracic back pain; Dysuria 03/21/2025 Orders Only [facility] [address] [address] Cristofer Jurado MD 03/21/2025 Travel 03/16/2025 9:30 AM EDT Office Visit [facility] [address] [place] [address] Colton Suarez MD Frequent urination; Vaginal discharge 03/16/2025 Travel 03/07/2025 10:15 AM EDT Office Visit [facility] [address] [place] [address] Jose Dixon MD Rosacea (Primary Dx) 03/07/2025 Travel 02/20/2025 11:00 AM EDT [facility] [address] [address] Name, MD Anup Hordeolum externum of right upper eyelid (Primary Dx) 02/09/2025 Travel 02/07/2025 Telephone [facility] [address] [place] [address] Colton Suarez MD insurance 02/03/2025 Population Health Risk Score [facility] Department [address] [place] [phone] Provider, Population Health Generic 01/24/2025 Orders Only [facility] [address] [place] [address] Colton Suarez MD 01/24/2025 Orders Only [facility] [address] [place] [address] Colton Suarez MD Right-sided low back pain without sciatica, unspecified chronicity 01/24/2025 Telephone [facility] [address] [place] [address] Colton Suarez MD from Last 3 Months [...] Description 05/22/2025 3:30 PM EDT Nurse Only [facility] [address] [place] [phone] 05/23/2025 9:00 AM EDT Office Visit [facility] [address] [place] [address] Jose Dixon MD [address] [place] [address] 06/19/2025 8:30 AM EDT Telemedicine [facility] [address] [place] [address] Colton Suarez MD [address] [place] [address] Health Maintenance Due Date Last Done Comments [...] Blood Count 4.1(L) 4.8 - 10.8 X10*3/uL [facility] Red Blood Count 3.95(L) 4.20 - 5.50 X10*6/uL [facility] Hemoglobin 12.0 12.0 - 16.0 g/dl [facility] Hematocrit 36.8(L) 37.0 - 47.0 % [facility] Mean Corpuscular Volume 93.2 80.0 - 98.0 fL [facility] Mean Corpuscular Hemoglobin 30.4 27.0 - 33.0 pg [facility] Mean Corpuscular HGB Conc 32.6 31.0 - 35.0 g/dl [facility] Red Cell Distribution Width 12.9 11.0 - 16.0 % [facility] Platelet Count 229 160 - 400 X10*3/uL [facility] Mean Platelet Volume 9.3(L) 9.4 - 12.3 fL [facility] Neutrophils Percent Auto 48.1 45 - 73 % [facility] Imm Gran Pct Auto 0.2 0.0 - 0.4 % [facility] Lymphocytes Percent Auto 34.2 20 - 40 % [facility] Monocytes Percent Auto 12.1(H) 2 - 11 % [facility] Eosinophils Percent Auto 4.4(H) 0 - 4 % [facility] Basophils Percent Auto 1.0 0 - 2 % [facility] NRBC Pct Auto 0.0 0.0 - 0.2 /100WBC [facility] Neutrophils Absolute Auto 2.0 2.0 - 8.3 x10*3/uL [facility] Imm Gran Abs Auto 0.01 0.00 - 0.03 X10*3/uL [facility] Lymphocytes Absolute Auto 1.4 1.2 - 4.9 X10*3/uL [facility] Monocytes Absolute Auto 0.5 0.1 - 1.2 X10*3/uL [facility] Eosinophils Absolute Auto 0.2 0.0 - 0.4 X10*3/uL [facility] Basophils Absolute Auto 0.0 0.0 - 0.2 X10*3/uL [facility] NRBC Abs Auto 0.000 0.0 - 0.012 X10*3/uL [facility] Blood Venous blood specimen / Unknown 03/22/2025 8:54 AM EDT 03/22/2025 2:15 PM EDT Colton Saravia MD LAB BLOOD ORDERABL ES Final Result [facility] [address] [place] [phone] * Hemoglobin A1c (03/22/2025 8:54 AM EDT) Hemoglobin A1c 5.7 <6.0 % [facility] Comment:Hemoglobin A1C Refer ence Range Adults: 4.8 - 6.0 % Non diabetic: < 6.0 % Goal: < 7.0 %Additional Action Suggested: > 8.0 %Note: Hemoglobin A1c results are invalid for patients with abnormal amounts of HbF. Blood transfusions may impact the HbA1c concentration in the patient sample. Estimated Average Glucose 117 mg/dL [facility] Comment:eAG = Estimated ave rage glucose which is %A1C expressed asaverage glucose, using the formula of the [id number] Glucose study (ADAG), Diabetes Care, Vol.31,#8,Jun. 2007 Blood Venous blood specimen / Unknown 03/22/2025 8:54 AM EDT 03/22/2025 2:15 PM EDT Colton Saravia MD LAB BLOOD ORDERABL ES Final Result Performing Organization Address [facility] Co de Phone Number [facility] [address] [place] [phone] * Syphilis Screen (03/22/2025 8:51 AM EDT) Syphilis Screen Nonreactive Nonreactive [facility] Blood Venous blood specimen / Unknown 03/22/2025 8:51 AM EDT 03/22/2025 2:15 PM EDT us Marcos PAL LAB BLOOD ORDERABLES Erika l Result Performing Organization Address [facility] de Phone Number [facility] [address] [place] [phone] * TSH W/Reflex to FT4 (03/22/2025 8:51 AM EDT) TSH reflex Free T4 1.56 0.32 - 4.0 uIU/mL [facility] Blood Venous blood specimen / Unknown 03/22/2025 8:51 AM EDT 03/22/2025 2:15 PM EDT Colton Saravia MD LAB BLOOD ORDERABL ES Final Result Performing Organization Address [facility] Co de Phone Number [facility] [address] [place] [phone] * Hepatitis C Antibody with Reflex to HCV, RNA, Quantitative, Real-Time PCR (03/22/2025 8:51 AM EDT) [facility] Hepatitis C Antibody Nonreactive Nonreactive [facility] Comment:Antibodies to HCV no t detected; does not exclude early acuteHCV infection. Blood Venous blood specimen / Unknown 03/22/2025 8:51 AM EDT 03/22/2025 2:15 PM EDT Colton Saravia MD LAB BLOOD ORDERABL ES Final Result Performing Organization Address [facility] Co de Phone Number [facility] [address] [place] [phone] * HIV-1/2 Antigen and Antibodies, Fourth Generation, with Reflexes (03/22/2025 8:51 AM EDT) [facility] HIV AB/AG Nonreactive Nonreactive [facility] Comment:HIV-1 p24 Ag and/or HIV-1/HIV-2 Ab not detected.A test result that is nonreactive does not exclude thepossibility of exposure to or infection with HIV-1 and/orHIV-2. Nonreactive results in this assay for individualswith prior exposure to HIV-1 and/or HIV-2 may be due toantigen and antibody levels that are below the limit ofdetection of this assay.The [employer] HIV Ag/Ab Combo assay result andsupplemental assay results should be interpreted inconjunction with the patient's clinical presentation,history and other laboratory results. If the results areinconsistent with clinical evidence, additional testing issuggested to confirm the result. Blood Venous blood specimen / Unknown 03/22/2025 8:51 AM EDT 03/22/2025 2:15 PM EDT Colton Saravia MD LAB BLOOD ORDERABL ES Final Result Performing Organization Address [facility] Co de Phone Number [facility] [address] [place] [phone] * Lipid Panel, Standard (03/22/2025 8:51 AM EDT) [facility] Triglycerides 90 <150 mg/dL [facility] Comment:Desirable Triglyceri de: less than 150 mg/dLBorderline High Triglyceride 150-199 mg/dLHigh Triglyceride: 200-499 mg/dLVery High Triglyceride: greater than or equal to 5OO mg/dL Cholesterol 154 <200 mg/dL [facility] Comment:Desirable Cholestero l: less than 200 mg/dLBorderline High Cholesterol: 200-239 mg/dLHigh Cholesterol: greater than 239 mg/dL LDL Cholesterol Calculated 85 <100 mg/dL [facility] Comment:Desirable LDL: less than 100 mg/dLNear Optimal/Above Optimal LDL: 110- 129 mg/dLBorderline High LDL: 130-159 mg/dLHigh LDL: 160-189 mg/dLVery High LDL: greater than or equal to 190 mg/dL HDL Cholesterol 51 >40 mg/dL [facility] Comment:Desirable HDL: great er than 40 mg/dL Note: This HDL assay may give artificially low results in patients with liver disease. Blood Venous blood specimen / Unknown 03/22/2025 8:51 AM EDT 03/22/2025 2:15 PM EDT us Colton Saravia MD LAB BLOOD ORDERABL ES Final Result [facility] [address] [place] [phone] [phone] * (ABNORMAL) Comprehensive Metabolic Panel (03/22/2025 8:51 AM EDT) Pathologist [facility] Sodium 139 135 - 145 mmol/L [facility] Potassium 3.9 3.3 - 5.1 mmol/L [facility] Chloride 107 96 - 108 mmol/L [facility] Carbon Dioxide 29 22 - 29 mmol/L [facility] Anion Gap 7(L) 12 - 20 [facility] Urea Nitrogen (BUN) 10 9 - 16 mg/dL [facility] Creatinine, Serum 0.75 0.5 - 1.4 mg/dL [facility] Estimated Glomerular Filt Rate >60 [facility] Comment:Chronic Kidney Disea se: Estimated GFR < 60 mL/min/1.31d8Kualbx Kidney Disease: Estimated GFR < 15 mL/min/1.73m2 Glucose 82 60 - 115 mg/dL [facility] Calcium 9.6 8.4 - 10.2 mg/dL [facility] Bilirubin, Total 0.3 0.0 - 1.0 mg/dL [facility] Aspartate Amino Transferase 33(H) 5 - 31 U/L [facility] Alanine Aminotransferase 21 0 - 31 U/L [facility] Total Protein 7.0 6.5 - 8.0 g/dL [facility] Albumin Level 3.7 3.5 - 5.0 g/dL [facility] Alkaline Phosphatase 89 39 - 117 U/L [facility] Blood Venous blood specimen / Unknown 03/22/2025 8:51 AM EDT 03/22/2025 2:15 PM EDT Colton Saravia MD LAB BLOOD ORDERABL ES Final Result Performing Organization Address City/[facility]/ZIP Co de Phone Number [facility] [address] [place] [address] [phone] * Culture, Urine, Routine (03/21/2025 10:10 AM EDT) Urine Urine specimen obtained by clean catch procedure / Unknown 03/21/2025 10:10 AM EDT 03/21/2025 5:59 PM EDT Comment:UACC Narrative [facility] - 03/23/2025 11:32 AM EDT Urine Culture No growth. Specimen Source: Urine clean catch Cristofer Jurado MD LAB MICROBIOLOGY - GENERAL ORDER GORGE Final Result Performing Organization Address [facility] Co de Phone Number [facility] [address] [place] [address] [phone] * POCT urinalysis dipstick manually resulted (03/21/2025 10:09 AM EDT) Only the most recent of2 resultswithin the time period is included. Pathologist [facility] Color, UA Yellow Clarity, UA Clear Glucose, [...] Bacterial Vaginosis Panel (03/16/2025 10:45 AM EDT) [facility] TRICHOMONAS VAGINALIS DETECTION BY PCR NOT DETECTED Not Detect [facility] BACTERIAL VAGINOSIS DETECTION BY PCR NEGATIVE Negative [facility] Comment:The BV organism targ ets [...] DETECTION BY PCR NOT DETECTED Not Detect [facility] Kenyetta glab krusei PCR NOT DETECTED Not Detect [facility] Swab Vaginal structure / Unknown 03/16/2025 10:45 AM EDT 03/16/2025 5:37 PM EDT Colton Saravia MD LAB MICROBIOLOGY - GENERAL ORDERABLES Final Result [facility] [address] [place] [phone] * Chlamydia/N. Gonorrhoeae RNA, TMA, Urogenitial (03/16/2025 10:45 AM EDT) [facility] CT PCR NOT DETECTED Not Detect. [facility] Comment:A not detected test result [...] psychologicalconsequences. NG PCR NOT DETECTED Not Detect. [facility] Comment:A not detected test result [...] AM EDT 03/16/2025 5:37 PM EDT Narrative [facility] - 03/17/2025 6:17 AM EDT Vaginal us Colton Saravia MD LAB MICROBIOLOGY - GENERAL ORDERABLES Final Result [facility] [address] [place] [address] [phone] * BI Mammogram Screening Tomosynthesis Bilateral (01/12/2025 2:35 PM EST) Anatomical Region Laterality Modality Breast Bilateral Mammography 01/12/2025 2:35 PM EST Narrative 01/20/2025 3:13 PM EST ? [facility] ? [address] ?[place] [id number] ? Mammography Report ? Signed ? Patient: Manjit Leal,Lidia ?MR#: M ?? [id number] ? : 1975 ?Acct:[id number] ? Age/Sex: 49 / F ?ADM Date: 01/12/25 ? Loc: HO.MAMMO ? Attending Dr: Colton Saravia MD ? Ordering Physician: Colton Suarez MD ?Res ?? ults: 2Benign Findings ? Date of Service: 01/12/25 ?Follow Up: 1 Year From Orig ?? inal Mammogram ? Procedure(s): MM tomosynthesis screening BI ?? Accession Number(s): [id number] ? cc: Colton Suarez MD ? EXAMINATION: [...] DD/ 1435 ? TD/TT: 01/12/25 1459 ? Infantry Operations Specialist: ? Procedure Note Donemekabrittniinterpreter, Image - 01/20/2025 [facility] [address] [place] [address] Mammography Report Signed Patient: Tory Monreal EMR#: [id number] : 1975Acct:[id number] Age/Sex: 49 / FADM Date: 01/12/25 Loc: HO.MAMMO Attending Dr: Colton Saravia MD Ordering Physician: Colton Suarez ults: 2Benign Findings Date of Service: 01/12/25Follow Up: 1 Year From Orig inal Mammogram Procedure(s): MM tomosynthesis screening BI Accession Number(s): [id number] cc: Colton Suarez MD EXAMINATION: MM SCREENING [...] 01/20/25 1511 DD/ 1435 TD/TT: 01/12/25 1459 Infantry Operations Specialist: Colton Saravia MD IMG BI PROCEDURES Final Result * HPV DNA, Low/High Risk (12/27/2024 3:20 PM EST) HPV High Risk Negative Negative [facility] HPV Genotype 16 Negative Negative [facility] HPV Genotype 18 Negative Negative [facility] Comment:HPV testing performe d at [facility] (IA#[id number]), [address] [place] [address].Testing for HPV was performed using the Oswaldo [...] CNM LAB BLOOD ORDERABLES Erika larry Result [facility] [address] [place] [phone] * Pap Smear (12/27/2024 3:20 PM EST) Swab Cervix uteri structure / Unknown 12/27/2024 3:20 PM EST 12/28/2024 9:15 AM EST Narrative [facility] - 01/05/2025 10:00 AM EST ----- ------- Name: Tory Monreal ?Age/Sex: 49/F ? : 1975 Unit#: [id number] ?? Attend Dr: MARCOS HAYES CNM ?Re12/27/24 ?Status: DEP REF ? Location: HO.HHCLNP ? Disch: ? ----- ------- SPEC : [id number] ? RECD: 12/28/24 ? STATUS: ??SOUT ? REQ NUM: [id number] ? SABINE: 12/27/24-1520 ? SUBM DR: MARCOS [...] END OF REPORT ? us Marcos Hayes [facility] LAB CYTOLOGY ORDERABLES F inal Result [facility] [address] [place] [address] [phone] from Last 3 Months or Most Recently Relevant to Health Maintenance Insurance [facility] Care Teams Environmental Services Director Relationship Specialty Start Date End Date Colton Suarez MD [address] [place] [phone] PCP - General Internal Medicine 03/21/25
== END 2025-04-14 15:25 | disposition home or self-care (01) ==
LOC: HO.US 15:24
PROVIDERS: PCP Internal Medicine; Visit Provider Internal Medicine
DX: R35.0 Frequency of micturition (principal)
CPT/HCPCS: 76775

== ENCOUNTER → 2025-04-14 15:31 | Outpatient (BNV) | payer OTHER, SELFPAY | PROVIDERS: PCP Internal Medicine; Visit Provider Radiology Diagnostic Radiology | DX: N28.1 Cyst of kidney, acquired (principal) | CPT/HCPCS: 76775 ==